=== PATIENT | female | born 1990 | race Caucasian/White ===

== ENCOUNTER 2018-03-29 08:50 | Outpatient (RCR) | payer BC, SELFPAY ==
--- NOTE | 2018-03-29 10:29 | BH.MDN ---
Multi-Disciplinary Note - Note 45-min Individual Time Started:: 11:33 Date: 03/29/18 Purpose of session/treatment goals addressed:: The purpose of this session was to build rapport as well as gather information regarding client current symptoms and stressors leading to readmission to IOP program. Another purpose was to update client background information since previous discharge and begin treatment goal planning. Eye Contact:: Good Motor Activity:: Appropriate Appearance:: Casual Speech:: Appropriate Mood:: Anxious, Depressed Affect:: Congruent - tearful throughout Thoughts:: Linear, Logical, No evidence of hallucinations/delusions noted Staff Interventions:: Therapist asked open ended and furthering questions to elicit information regarding client current symptoms and stressors leading to readmission as well as determine client use of coping skills and identified supports. Provided supportive feedback and empathic responses as client discussed current stressors and events leading to increased mental health symptoms.Assessed for risk and reviewed with client the crisis resources available. Used ND techniques to determine client current motivation to change as well as begin treatment goal planning. Client Response:: Client was receptive of meeting and responded well to session. She discussed with this therapist ongoing struggles with depression and passive thoughts of not wanting to be here. Client discussed recently going through a breakup which is what she attributes to being the cause of her increased symptoms of depression and thoughts of . Client shared the events leading to most recent hospitalization and discussed at the time of admission she had a vague plan to wreck her truck but knew she would not follow through with this plan as client had just recently purchased a new vehicle as well as expressed that she could not put her son through that. Client shared continued difficulties in adjusting to the break up as well as maintaining appropriate boundaries with her ex boyfriend which has been impacting daily functioning and continued to maintain depression. Client indicates knowing that confusing to have communication with her ex is negatively impacting her mental health and results in increased negative thinking when he does not follow through with promises to call or come see her. She additionally discussed that her depression and rumination related to the break up has resulted in poor focus at work, increased isolation and avoidance, increased feelings of worthlessness and hopelessness, loneliness, as well as changes in sleep and appetite. Client discuss no longer wanting to do anything and has barely been able to perform her parenting responsibilities. She did well to identify goals for treatment and shared wanting to learn skills for improving client self confidence and ability to feel happy when not in a relationship. Risks/Concerns:: Client recently discharged from inpatient hospitalization at [facility] due to suicidal ideation. A risk assessment was completed in session and client denies any active suicidal ideation, plan, or intent as of 03/29/18. She identifies her son as her main motivation to live and learn more efficient means of managing distress and mental health symptoms. Client is aware of and expresses willingness to utilize local crisis resources available. Progress Toward Goals/Plan:: Client first day in group since returning to the iop program and therefore limited progress able to be made. She did well to engage in individual session ; however, was a mostly passive participant in the group environment due to this being first day. Client was willing to participate in activity portion. During session, client discussed motivation to improve current symptoms and willingness to try new strategies for Managing and regulating emotions in order to prevent future crisis escalation. Client expressed hesitancy in her ability to retain from contacting her ex as she works on healing from the break up however expressed willingness to try. Current plan is to begin working with client on increasing understanding of establishing and maintaining healthy boundaries and relationships, improving use of healthy coping skills, and identifying and implementing thought challenging techniques. Time Stopped:: 12:15
--- NOTE | 2018-03-29 14:30 | BH.SGPN ---
Service Group Progress Note - Session Psychotherapy Session #2 Date Open:: 03/29/18 - group members Time Started:: 10:20 Time Stopped:: 11:15 Targeted Problem #:: 1 Type of Group:: Illness Management Goal of Group:: To increase understanding of resilience and identify the factors that contribute to building resilience. Client Response/Progress/Benefit:: Client responded well to session, quiet and withdrawn, but using good eye contact. Client appeared to connect with the quote sharing, if you don't bend you break. Client agreed with the groups' definition of resilience as bouncing back from hard times. Client shared anyone can be resilient, but it is more challenging for some than others. Client reported currently she is not adapting enough to situations which keeps client stuck in negative thinking. Client helped the group identify and process factors that contribute to building resilience. Client shared living to learn is important for building resilience as each hardship comes with new ways to adapt and grow. Client appeared to benefit from increasing her awareness of the factors that contribute to resilience and why being resilient is important for mental health. Eye Contact:: Fair Motor Activity:: Appropriate Appearance:: Casual Speech:: Appropriate Mood:: Anxious Affect:: Constricted Thoughts:: Linear, No evidence of hallucinations/delusions noted Staff Interventions:: Therapist led group in an activity that would induce a chaotic environment and used the activity as a tool in discussing the various stressors people are faced with each day. Therapist facilitated group discussion about resilience and explained the factors of building resilience. Therapist led discussion about factors that contribute to resilience. Therapist provided support by using active listening and providing feedback.
--- NOTE | 2018-03-29 15:47 | BH.SGPN ---
Service Group Progress Note - Session Psychotherapy Session #1 Date Open:: 03/29/18 Time Started:: 09:10 Time Stopped:: 10:10 Targeted Problem #:: 1 Type of Group:: Process - 10 group members Goal of Group:: The goal of today's group was to check-in with client's mood, stressors, and positives, review homework and introduce topic for the day. Client Response/Progress/Benefit:: Client appeared anxious and withdrawn AEB client staring off, not making eye contact, and fidgety with hands and legs. Client reported she is feeling frustrated because she is returning to IOP for being in the same situation with relationship issues. client shared feeling anxious that she won't get enough sleep due to working second shift and trying to be in IOP at same time. Client seemed to benefit from support from peers. First day in IOP. Eye Contact:: Poor Motor Activity:: Restless Appearance:: Casual Speech:: Appropriate Mood:: Anxious, Depressed Affect:: Flat Thoughts:: Linear, No evidence of hallucinations/delusions noted Staff Interventions:: Therapist used open-ended questions to elicit information about client's current stressors and mood state. Therapist was supportive by using active listening and reflection.
--- NOTE | 2018-03-30 10:36 | BH.SGPN_ITS ---
Service Group Progress Note - Session Psychotherapy Session #1 Date Open:: 18 - 6 group members Time Started:: 09:05 Time Stopped:: 10:20 Targeted Problem #:: 1 Type of Group:: Process Goal of Group:: The goal of today's group was to check-in with client's mood, stressors, and positives, and introduce topic for the day. Client Response/Progress/Benefit:: Client responded well to session, quiet, but participating when prompted. Client reported she does not have an emotion today , she just feels sick and sleepy. Client shared she started not feeling well last night at work, potentially due to dehydration and heat. Client reported she returned to work this week following her inpatient hospitalization and each day she has been coping better. Client stated having to schedule IOP, work, and her home life is challenging and exhausting, but I know I need to be in the program as it helped client in the past. Client appeared to benefit from receiving supportive statements from peers. Progress limited as it client's second day, to continue IOP to promote mood stability and prevent decompensation. Eye Contact:: Fair Motor Activity:: Appropriate Appearance:: Neat Speech:: Appropriate Mood:: Dysthymic Affect:: Constricted Thoughts:: Linear, Logical, No evidence of hallucinations/delusions noted Staff Interventions:: Therapist used open-ended questions to elicit information about client's current stressors and mood state. Therapist was supportive by using active listening and reflection.
--- NOTE | 2018-03-30 14:54 | BH.SGPN ---
Service Group Progress Note - Session Psychotherapy Session #2 Date Open:: 03/30/18 Time Started:: 10:24 Time Stopped:: 11:14 Targeted Problem #:: 1 Type of Group:: Illness Management - 7 participants Goal of Group:: To increase understanding of fear and explore the negative impact fear of failure can have on mental health and decision making. Client Response/Progress/Benefit:: Client responded well to session and indicated connnecting with topic of Fear of Failure. She took on a mostly passive, observatory role during discussion reviewing the definition of failure, what influences our definitions of failure, and how it impacts mental health. CLient however appeared to benefit from the discussion as evidenced by her nodding and listening attentively throughout. SHe displayed progress in ability to engage with participants during activity portion as client provided input, direction, and encouragement to assist peers in taking strides towards achieving the goal of the group. Client recommended continued IOP to further improve consistent use of health coping and boundary setting skills as well as increase client self confidence. Eye Contact:: Fair Motor Activity:: Appropriate Appearance:: Casual Speech:: Appropriate Mood:: Dysthymic Affect:: Flat Thoughts:: Linear, Logical, No evidence of hallucinations/delusions noted Staff Interventions:: Therapist facilitated discussion about fear and impact fear of failure can have. Therapist led group in an experiential activity in which clients would fail numerous times throughout, but were given the opportunity to try again. Therapist led the processing of the activity and assisted clients with connecting how fear of failure impacted their decision making during the activity. Psychotherapy Session #3 Date Open:: 03/30/18 Time Started:: 11:21 Time Stopped:: 12:17 Targeted Problem #:: 1 Type of Group:: Functional Skills Development - 7 participants Goal of Group:: To identify the impact fear of failure has had on the group members lives and identify strategies to overcome fear of failure. Client Response/Progress/Benefit:: Client again appeared to respond well to session and displayed an increase in overall participation levels. This was evidenced by client providing increased input to discussion. Client processed the gridlock activity with the group and indicated that her need for external validation during the activity particularly resonated with her need for affection and validation in her own life. Client shared connecting with an inspirational video by Cornelius Delcid discussing failure and indicated watching this may be helpful during times she is feelong upset with herself. Client displayed progress in her willingness to engage in grouo and is recommended continued IOP to further improve overall self-esteem levels and ability to challenge negative thinking. Eye Contact:: Fair Motor Activity:: Appropriate Appearance:: Casual Speech:: Appropriate Mood:: Anxious, Dysthymic Affect:: Constricted Thoughts:: No evidence of hallucinations/delusions noted Staff Interventions:: Therapist provided each group member with a worksheet to complete that asked questions about their experiences with fear of failure. Therapist led the processing of the worksheet, helping clients connect how fear of failure has impacted them. Therapist provided support by using active listening and providing feedback.
--- NOTE | 2018-03-30 22:52 | BH.SGPN_ITS ---
Service Group Progress Note - Session Psychotherapy Session #2 Date Open:: 03/30/18 Time Started:: 10:24 Time Stopped:: 11:14 Targeted Problem #:: 1 Type of Group:: Illness Management - 7 participants Goal of Group:: To increase understanding of fear and explore the negative impact fear of failure can have on mental health and decision making. Client Response/Progress/Benefit:: Client responded well to session and indicated connnecting with topic of Fear of Failure. She took on a mostly passive, observatory role during discussion reviewing the definition of failure , what influences our definitions of failure, and how it impacts mental health. CLient however appeared to benefit from the discussion as evidenced by her nodding and listening attentively throughout. SHe displayed progress in ability to engage with participants during activity portion as client provided input, direction, and encouragement to assist peers in taking strides towards achieving the goal of the group. Client recommended continued IOP to further improve consistent use of health coping and boundary setting skills as well as increase client self confidence. Eye Contact:: Fair Motor Activity:: Appropriate Appearance:: Casual Speech:: Appropriate Mood:: Dysthymic Affect:: Flat Thoughts:: Linear, Logical, No evidence of hallucinations/delusions noted Staff Interventions:: Therapist facilitated discussion about fear and impact fear of failure can have. Therapist led group in an experiential activity in which client?s would fail numerous times throughout, but were given the opportunity to try again. Therapist led the processing of the activity and assisted clients with connecting how fear of failure impacted their decision making during the activity. Psychotherapy Session #3 Date Open:: 03/30/18 Time Started:: 11:21 Time Stopped:: 12:17 Targeted Problem #:: 1 Type of Group:: Functional Skills Development - 7 participants Goal of Group:: To identify the impact fear of failure has had on the group members lives and identify strategies to overcome fear of failure. Client Response/Progress/Benefit:: Client again appeared to respond well to session and displayed an increase in overall participation levels. This was evidenced by client providing increased input to discussion. Client processed the gridlock activity with the group and indicated that her need for external validation during the activity particularly resonated with her need for affection and validation in her own life. Client shared connecting with an inspirational video by Cornelius Delcid discussing failure and indicated watching this may be helpful during times she is feelong upset with herself. Client displayed progress in her willingness to engage in grouo and is recommended continued IOP to further improve overall self-esteem levels and ability to challenge negative thinking. Eye Contact:: Fair Motor Activity:: Appropriate Appearance:: Casual Speech:: Appropriate Mood:: Anxious, Dysthymic Affect:: Constricted Thoughts:: No evidence of hallucinations/delusions noted Staff Interventions:: Therapist provided each group member with a worksheet to complete that asked questions about their experiences with fear of failure. Therapist led the processing of the worksheet, helping client?s connect how fear of failure has impacted them. Therapist provided support by using active listening and providing feedback.
--- NOTE | 2018-04-05 10:36 | BH.COMM ---
Communication Note - Communication with Client Communication Note: Client called to cancel group attendance on this s ate. She had been scheduled for an individual session as well and therapist contacted client to check-in as well as reschedule appointment. Client indicated having a migraine as she had been up late the previous night and wanted to get some sleep to help with her headache. Client shared feeling depressed and lonely but was doing alright. She denied suicidal ideation,plan,or intent. Client future oriented as she expressed plans to go to work later this day and attend scheduled appointment for Tuesday.
--- NOTE | 2018-04-07 10:37 | BH.MDN ---
Multi-Disciplinary Note - Note 45-min Individual Time Started:: 11:41 Date: 04/07/18 Purpose of session/treatment goals addressed:: The purpose of the session was to assess client current symptoms and stressors, as well as coping strategies used. Another purpose was to assist client in identifying strategies to address her son's questions regarding client's ex-boyfriend. Discuss cycle of depression and assist client in identifying potential healthy means for coping. Eye Contact:: Good Motor Activity:: Appropriate Appearance:: Casual Speech:: Appropriate Mood:: Anxious, Depressed Affect:: Congruent Thoughts:: Linear, Logical, No evidence of hallucinations/delusions noted Staff Interventions:: Therapist asked open ended and furthering questions to assess current symptoms, stressors, and means of coping. Used supportive statements and empathic responses to normalize client symptoms, frustrations, and difficulties in managing ongoing stressors. Applied [place] strategies via creation of discrepancy to address client ongoing depressive symptoms and inconsistent application of healthy skills identified. Provided psychoeducation on depression cycle and aided client in identifying potential healthier means for coping. Problem solved with client concerns regarding answering her son's questions about her ex. Client Response:: Responded well to session and was open to meeting with this therapist. She discussed having several ups and downs over the past week and has found herself struggling to manage depressive symptoms. Client shared continuing to struggle with finding ways to answer her son's questions regarding her ex-boyfriend and why he has not been around. She indicated continuing to avoid his questions but that this has begun to impact her overall mental health. She shared continuing to her refrain from contacting her ask however becoming increasingly difficult as her son continues to bring him up. Client indicates that so far maintaining healthy boundaries has been helpful in moving on from the relationship. Client shared historically having difficulties in maintaining healthy boundaries after establishing them she often becomes lonely or gives an she went on to discuss similar difficulties in establishing and maintaining boundaries work. Client shared that this has resulted in some increased the patient will stressors and tention with various coworkers. Client indicated one of which resulted in our involvement. Client open to discussing components of healthy relationships and ways in which she may begin to take steps to improve boundaries in her current relationships. Problem solved with this therapist responses she may give her son when he asked questions that will answer his questions and not also trigger client. Risks/Concerns:: No risks or concerns at this time. Client denies any active suicidal ideation, plan, or intent as of this date-04/07/2018. He is future oriented and expresses plans she is aware of the crisis resources available and willing to utilize should she need. Progress Toward Goals/Plan:: Client is showing some progress in her ability to identify the impact current behaviors have on her overall mental health and continues to struggle significantly with application of healthy coping skills. Current plan is to continue IOP treatment and maintain current treatment goals. Client indicates willingness to begin spending 5-10 minutes working on practicing healthy emotion regulation skills and coping strategies. She additionally expressed willingness to reflect upon current relationships in order to identify areas in which she may need to implement healthier boundaries. Time Stopped:: 12:30
--- NOTE | 2018-04-17 10:32 | BH.MDN_ITS ---
Multi-Disciplinary Note - Note 45-min Individual Time Started:: 11:33 Date: 03/29/18 Purpose of session/treatment goals addressed:: The purpose of this session was to build rapport as well as gather information regarding client current symptoms and stressors leading to readmission to IOP program. Another purpose was to update client background information since previous discharge and begin treatment goal planning. Eye Contact:: Good Motor Activity:: Appropriate Appearance:: Casual Speech:: Appropriate Mood:: Anxious, Depressed Affect:: Congruent - tearful throughout Thoughts:: Linear, Logical, No evidence of hallucinations/delusions noted Staff Interventions:: Therapist asked open ended and furthering questions to elicit information regarding client current symptoms and stressors leading to readmission as well as determine client use of coping skills and identified supports. Provided supportive feedback and empathic responses as client discussed current stressors and events leading to increased mental health symptoms.Assessed for risk and reviewed with client the crisis resources available. Used DE techniques to determine client current motivation to change as well as begin treatment goal planning. Client Response:: Client was receptive of meeting and responded well to session. She discussed with this therapist ongoing struggles with depression and passive thoughts of ?not wanting to be here?. Client discussed recently going through a breakup which is what she attributes to being the cause of her increased symptoms of depression and thoughts of . Client shared the event? s leading to most recent hospitalization and discussed at the time of admission she had a vague plan to wreck her truck but knew she would not follow through with this plan as client had just recently purchased a new vehicle as well as expressed that she could not put her son through that. Client shared continued difficulties in adjusting to the break up as well as maintaining appropriate boundaries with her ex boyfriend which has been impacting daily functioning and continued to maintain depression. Client indicates knowing that confusing to have communication with her ex is negatively impacting her mental health and results in increased negative thinking when he does not follow through with promises to call or come see her. She additionally discussed that her depression and rumination related to the break up has resulted in poor focus at work, increased isolation and avoidance, increased feelings of worthlessness and hopelessness, loneliness, as well as changes in sleep and appetite. Client discuss no longer wanting to do anything and has barely been able to perform her parenting responsibilities. She did well to identify goals for treatment and shared wanting to learn skills for improving client self confidence and ability to feel happy when not in a relationship. Risks/Concerns:: Client recently discharged from inpatient hospitalization at [facility] due to suicidal ideation. A risk assessment was completed in session and client denies any active suicidal ideation, plan, or intent as of . She identifies her son as her main motivation to live and learn more efficient means of managing distress and mental health symptoms. Client is aware of and expresses willingness to utilize local crisis resources available. Progress Toward Goals/Plan:: Client first day in group since returning to the iop program and therefore limited progress able to be made. She did well to engage in individual session ; however, was a mostly passive participant in the group environment due to this being first day. Client was willing to participate in activity portion. During session, client discussed motivation to improve current symptoms and willingness to try new strategies for Managing and regulating emotions in order to prevent future crisis escalation. Client expressed hesitancy in her ability to retain from contacting her ex as she works on healing from the break up however expressed willingness to try. Current plan is to begin working with client on increasing understanding of establishing and maintaining healthy boundaries and relationships, improving use of healthy coping skills, and identifying and implementing thought challenging techniques. Time Stopped:: 12:15
--- NOTE | 2018-04-17 10:37 | BH.COMM_ITS ---
Communication Note - Communication with Client Communication Note: Client called to cancel group attendance on this s ate. She had been scheduled for an individual session as well and therapist contacted client to check-in as well as reschedule appointment. Client indicated having a migraine as she had been up late the previous night and wanted to get some sleep to help with her headache. Client shared feeling depressed and lonely but was ?doing alright?. She denied suicidal ideation,plan,or intent. Client future oriented as she expressed plans to go to work later this day and attend scheduled appointment for Tuesday.
--- NOTE | 2018-04-24 15:48 | BH.MTP_ITS ---
Master Treatment Plan - Patient Information Program Physician:: Chika Patricio Primary Therapist:: MAIRA Liu - Psychiatric Diagnoses Psychiatric Diagnoses:: Major Depressive Disorder Diagnosis Code(s):: F33.2 - Estimated LOS Estimated LOS (in weeks):: 6 Problem/Goal #1 - Problem/Goal #1 Stated Goal:: Client will decrease depressive symptoms, avoidance, isolation, and suicidal ideationdue to Major Depressive Disorder through Intensive Outpatient Program. Description of Barriers: Client struggles with a hx of codependent relationships and most recently is experiencing difficulties in managing depressive thinking, ruminating thoughts, and isolative behaviors related to a recent break-up. CLient reports difficulties in maintaining healthy boundaries which has cause relationship tension and increased client ability to move on from the relationship. CLient limited support system, distorted thinking, toxic work environment, negative self-talk, and decreased motivation are additional barriers. Functional Impact: Client has recently been discharged from inpatient hospitalization due to suicidal thoughts following the break-up and had to take time off work as she was avoiding her ex and struggling to manage ongoing depressive thoughts. Client's social, financial, occupational, and familial relationships continue to be negatively impacted by her depressive and anxious symptoms.CLient indicates increase ruminating and intrusive thoughts have impacted her relationships and created additional tension with supports. Goal Relevant Strengths/Supports: Client is resilient and expresses motivation to improve management of mental health sx. She is familiar with treatment and expresses willingness to try new treatment strategies. CLient is intelligent and has some insight to triggers and helpful coping skills. Client's son seems to be a motivator for client to continue to maintain safety and improve mental health sx. - Objectives Objective #1 Stated Objective: Client will identify and replace 2-3 negative thinking patterns that mediate feelings of hopelessness and helplessness and cause ongoing feelings of guilt and loneliness. Interventions: Through groups and individual therapy, pt. will be provided with education on cognitive distortions, mistaken beliefs, and identifying and combating negative self-talk. Therapist will help pt. explore connection between thoughts, feelings, and actions. Discharge Criteria: Pt. will be able to identify 2-3 negative thinking patterns and be able to effectively stop, challenge, or cope with those negative thoughts. Target Date: 05/10/18 Review Date: 04/26/18 Objective #2 Stated Objective: Client will increase her ability to identify healthy relationships and implement healthy boundaries as well as establish a relationship crisis manaegement plan for maintaining mental health and implementing healthy boundaries following a potential future relationship break- up. Interventions: Therapist will provide psychoeducation regarding dynamics of healthy vs. unhealthy relationships. Therapist will review healthy boundaries and aid client in identifying areas in her life in which she may benefit from establishing healthier boundaries. Therapist will discuss strategies for client to begin implementing healthy boundary setting in current and future relationships. Therapist will work with client to complete a relationship crisis management plan including mental health warning signs and triggers, healthy coping skills, supports, and reminders for client to utilize in the event of a future unsuccessful relationship. Discharge Criteria: Client will have completed tx goal when she is able to successfully identify components of healthy relationships and healthy boundaries as well as implement 1-2 boundary setting strategies in her own life. CLient will additionally complete a Relationship crisis management plan. Target Date: 05/10/18 Review Date: 04/26/18 Problem/Goal #2 - Problem/Goal #2 Stated Goal:: Stabilize anxiety level while increasing ability to function and decreasing ruminative thoughts and avoidance behaviors Description of Barriers: Client struggles with a hx of codependent relationships and most recently is experiencing difficulties in managing depressive thinking, ruminating thoughts, and isolative behaviors related to a recent break-up. CLient reports difficulties in maintaining healthy boundaries which has cause relationship tension and increased client ability to move on from the relationship. CLient limited support system, distorted thinking, toxic work environment, negative self-talk, and decreased motivation are additional barriers. Functional Impact: Client has recently been discharged from inpatient hospitalization due to suicidal thoughts following the break-up and had to take time off work as she was avoiding her ex and struggling to manage ongoing depressive thoughts. Client's social, financial, occupational, and familial relationships continue to be negatively impacted by her depressive and anxious symptoms.CLient indicates increase ruminating and intrusive thoughts have impacted her relationships and created additional tension with supports. Goal Relevant Strengths/Supports: Client is resilient and expresses motivation to improve management of mental health sx. She is familiar with treatment and expresses willingness to try new treatment strategies. CLient is intelligent and has some insight to triggers and helpful coping skills. Client's son seems to be a motivator for client to continue to maintain safety and improve mental health sx. - Objectives Objective #1 Stated Objective: Client will identify and begin to utilize 2-3 thought changing /reframing strategies to use when feeling Interventions: Therapist will assist client with being able to identify triggers to increased symptoms, and then identify ways to manage these feelings and thoughts. Education on mistaken beliefs, cognitive distortions, reframing skills, and use of affirmations. Discharge Criteria: Client will have met this goal when can safely use 2-3 coping and reframing strategies when feeling overwhelmed and be able to utilize these skills outside of program. Target Date: 05/10/18 Review Date: 04/26/18
== END 2018-03-30 23:59 ==
LOC: BHIOP 08:50
PROVIDERS: Family Provider Student in an Organized Health Care Education/Training Program; PCP Student in an Organized Health Care Education/Training Program; Visit Provider Psychiatry & Neurology Psychiatry
DX: F33.2 Major depressive disorder, recurrent severe without psychotic features (principal)
CPT/HCPCS: H0035; 90853

== ENCOUNTER 2018-03-31 09:00 | Outpatient (RCR) | payer BC, SELFPAY ==
--- NOTE | 2018-03-31 10:42 | PCM.HP.BLA ---
History and Physical Identifying information Patient is a 28-year-old female who presents to the [facility] status post inpatient psychiatric hospitalization for depression with suicidal ideation after breakup with boyfriend. Patient reports I got myself in the same situation all over again. She had a similar situation requiring hospitalization and [facility] treatment last year. History is been obtained per interview with patient, discussion with staff, review of chart. Case discussed with treatment team. Records reviewed including the history and physical by Dr. Marquez March 19, 2018 from [facility]. History and physical reviewed from [facility] from March 11, 2017. History of present illness This 28-year-old single female who presents to the [facility] for evaluation of depression and anxiety. She had similar symptoms one year ago in February 2017 associated with breakup with boyfriend. Her current symptoms started mid-February after a 2 month relationship with boyfriend went bad. She reports the boyfriend moved in with her 1 month ago. They had a fight on March 17 at which time he moved out. She reports increased depression with increased suicidal thinking and sought treatment through [facility] where she was admitted from 03/18 through 03/22. Started on Zoloft 25 mg twice daily during her inpatient stay but discontinued it 2 days ago due to nausea and vomiting. She continues to have depression including anhedonia decreased energy and difficulty concentrating. Her appetite is been overall decreased. She is sleeping from 1 AM to 8 AM but notes that it is interrupted. She continues to have passive thoughts of nonexistent. She denies specific suicide plan or intent. Feels able to maintain safety. Acknowledges that she lives for her son. Denies access to firearms. No homicidal ideation. No hallucinations or symptoms consistent with psychosis. No symptoms consistent with yfn. Reports moderate ruminative anxiety. Had panic attacks at [facility] but none since. No obsessions or compulsions. No history of eating disorder. Past psychiatric history She was first treated in the eighth grade for cutting behavior which lasted 2 months after starting Adderall XR. Denies cutting since. She reports a diagnosis of ADHD as a teenager and took Adderall from grade school through the 12th grade. She reports the Adderall was restarted at [facility]. She feels that it has been somewhat effective in helping her focus at work. She had 2 inpatient psychiatric hospitalizations at [facility]. The first was February 25 - March 01, 2017 for depression with suicidal ideation. The second was from March 18 - March 22, 2018 as noted above. She sees Dr. Lira at the counseling center. She has had previous medication trials with SSRIs which have resulted in nausea including Prozac, Lexapro, and Zoloft. She was previously on Effexor which she felt was effective but also caused nausea. 9 Substance use history Denies smoking, ingestion of alcohol, use of illicit drugs. Consumes 40 ounces of caffeinated soda daily. Past medical history Exercise-induced asthma PVCs Denies seizure or head injury Review of systems Complaint of nausea associated with Zoloft. No fevers chills chest pain or dyspnea. All other systems reviewed and negative except as above. Allergies Hotdogs, environmental allergies Current medications Discontinued Zoloft 25 mg twice daily 2 days ago due to nausea vomiting. Trazodone 50 mg p.o. nightly as needed insomnia-uses rarely Adderall 20 mg daily Ativan 0.5 mg p.o. daily as needed-uses rarely Vistaril 25 mg p.o. 4 times daily prescribed at [facility] but not taking Family medical psychiatric history Mother has history of hoarding Father had undiagnosed depression as a child Brother had PTSD from service Developmental social history Patient was born and raised in [place] which she has 1 older brother. She grew up with her parents and her brother. She denies abuse. She attended 1 year of college general classes which she stated was not for me. She has worked at [employer] for 4 years. 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 She lives in [place] with her son age 7 (Girma). Legal history-none Mental status exam Vital signs reviewed per nursing database and discussed with nursing. Patient is alert and oriented in no acute distress. Ambulatory with normal gait and station. Facial piercing. Appears stated age. Casually dressed. Appropriate grooming and hygiene. Good eye contact. Cooperative with interview. No psychomotor agitation or retardation. Mood is depressed. Affect congruent. Speech is clear and of regular rate and volume. Language fluent. Thought process organized. Associations logical. Thought content significant for ruminative anxiety and themes of depression. Passive thoughts of . No suicide plan or intent. Feels able to maintain safety. No homicidal ideation related to her detected. No evidence of psychosis related to her detected. Immediate recent and remote memory grossly intact. Attention and concentration are fair. Estimated intelligence fund of knowledge average. Judgment and insight are fair. Labs and testing March 20, 2018 labs reviewed. CBC and CMP within normal limits. Cholesterol 124. TSH 1.75. Tox screen negative. Diagnosis Major depressive disorder recurrent severe F 33.2 Anxiety unspecified ADHD by history Plan Admit to IOP as the structured setting is necessary to prevent decompensation. Risks benefits alternatives of medications discussed with patient. Patient acknowledges understanding. Start Wellbutrin SR 100 mg p.o. daily. Previous SSRIs have resulted in GI symptoms. Patient denies history of seizure. Encouraged caffeine reduction. Encouraged to limit use of benzodiazepines. May use trazodone 50 mg p.o. nightly as needed for insomnia. Encouraged sleep hygiene. 20 minutes of Insight oriented psychotherapy provided. Follow-up with Dr. Oakes. Further lab work will be obtained as needed. Patient acknowledges understanding and is in agreement with plan. She feels able to maintain safety. Agrees to seek help or emergency care if feeling unsafe to self or others.
--- NOTE | 2018-03-31 11:04 | HP.PCM_ITS ---
History and Physical Identifying information Patient is a 28-year-old female who presents to the [facility] status post inpatient psychiatric hospitalization for depression with suicidal ideation after breakup with boyfriend. Patient reports I got myself in the same situation all over again. She had a similar situation requiring hospitalization and [facility] treatment last year. History is been obtained per interview with patient, discussion with staff, review of chart. Case discussed with treatment team. Records reviewed including the history and physical by Dr. Marquez March 19, 2018 from [facility]. History and physical reviewed from [facility] from March 11, 2017. History of present illness This 28-year-old single female who presents to the [facility] for evaluation of depression and anxiety. She had similar symptoms one year ago in February 2017 associated with breakup with boyfriend. Her current symptoms started mid-February after a 2 month relationship with boyfriend went bad. She reports the boyfriend moved in with her 1 month ago. They had a fight on March 17 at which time he moved out. She reports increased depression with increased suicidal thinking and sought treatment through [facility] where she was admitted from 03/18 through 03/22. Started on Zoloft 25 mg twice daily during her inpatient stay but discontinued it 2 days ago due to nausea and vomiting. She continues to have depression including anhedonia decreased energy and difficulty concentrating. Her appetite is been overall decreased. She is sleeping from 1 AM to 8 AM but notes that it is interrupted. She continues to have passive thoughts of nonexistent. She denies specific suicide plan or intent. Feels able to maintain safety. Acknowledges that she lives for her son. Denies access to firearms. No homicidal ideation. No hallucinations or symptoms consistent with psychosis. No symptoms consistent with yfn. Reports moderate ruminative anxiety. Had panic attacks at [facility] but none since. No obsessions or compulsions. No history of eating disorder. Past psychiatric history She was first treated in the eighth grade for cutting behavior which lasted 2 months after starting Adderall XR. Denies cutting since. She reports a diagnosis of ADHD as a teenager and took Adderall from grade school through the 12th grade. She reports the Adderall was restarted at [facility]. She feels that it has been somewhat effective in helping her focus at work. She had 2 inpatient psychiatric hospitalizations at [facility]. The first was February 25 - March 01, 2017 for depression with suicidal ideation. The second was from March 18 - March 22, 2018 as noted above. She sees Dr. Lira at the counseling center. She has had previous medication trials with SSRIs which have resulted in nausea including Prozac, Lexapro, and Zoloft. She was previously on Effexor which she felt was effective but also caused nausea. 9 Substance use history Denies smoking, ingestion of alcohol, use of illicit drugs. Consumes 40 ounces of caffeinated soda daily. Past medical history Exercise-induced asthma PVCs Denies seizure or head injury Review of systems Complaint of nausea associated with Zoloft. No fevers chills chest pain or dyspnea. All other systems reviewed and negative except as above. Allergies Hotdogs, environmental allergies Current medications Discontinued Zoloft 25 mg twice daily 2 days ago due to nausea vomiting. Trazodone 50 mg p.o. nightly as needed insomnia-uses rarely Adderall 20 mg daily Ativan 0.5 mg p.o. daily as needed-uses rarely Vistaril 25 mg p.o. 4 times daily prescribed at [facility] but not taking Family medical psychiatric history Mother has history of hoarding Father had undiagnosed depression as a child Brother had PTSD from service Developmental social history Patient was born and raised in [place] which she has 1 older brother. She grew up with her parents and her brother. She denies abuse. She attended 1 year of college general classes which she stated was not for me. She has worked at [employer] for 4 years. 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 She lives in [place] with her son age 7 (Girma). Legal history-none Mental status exam Vital signs reviewed per nursing database and discussed with nursing. Patient is alert and oriented in no acute distress. Ambulatory with normal gait and station. Facial piercing. Appears stated age. Casually dressed. Appropriate grooming and hygiene. Good eye contact. Cooperative with interview. No psychomotor agitation or retardation. Mood is depressed. Affect congruent. Speech is clear and of regular rate and volume. Language fluent. Thought process organized. Associations logical. Thought content significant for ruminative anxiety and themes of depression. Passive thoughts of . No suicide plan or intent. Feels able to maintain safety. No homicidal ideation related to her detected. No evidence of psychosis related to her detected. Immediate recent and remote memory grossly intact. Attention and concentration are fair. Estimated intelligence fund of knowledge average. Judgment and insight are fair. Labs and testing March 20, 2018 labs reviewed. CBC and CMP within normal limits. Cholesterol 124. TSH 1.75. Tox screen negative. Diagnosis Major depressive disorder recurrent severe F 33.2 Anxiety unspecified ADHD by history Plan Admit to IOP as the structured setting is necessary to prevent decompensation. Risks benefits alternatives of medications discussed with patient. Patient acknowledges understanding. Start Wellbutrin SR 100 mg p.o. daily. Previous SSRIs have resulted in GI symptoms. Patient denies history of seizure. Encouraged caffeine reduction. Encouraged to limit use of benzodiazepines. May use trazodone 50 mg p.o. nightly as needed for insomnia. Encouraged sleep hygiene. 20 minutes of Insight oriented psychotherapy provided. Follow-up with Dr. Oakes. Further lab work will be obtained as needed. Patient acknowledges understanding and is in agreement with plan. She feels able to maintain safety. Agrees to seek help or emergency care if feeling unsafe to self or others.
--- NOTE | 2018-03-31 11:04 | BH.DR.ITP ---
Initial Treatment Plan - Patient Information Visit Information: ADMISSION DATE: EXPECTED LOS: 4-6 weeks Diagnoses:: Major depressive disorder recurrent severe F 33.2 - Problems/Symptoms Problem #1:: Depression Symptom:: Sad mood, anhedonia, decreased energy, suicidal ideation, biologic disruption of sleep and appetite Problem #2:: Anxiety Symptom:: Rumination, panic
--- NOTE | 2018-03-31 13:48 | BH.SGPN ---
Service Group Progress Note - Session Psychotherapy Session #3 Date Open:: 18 - 7 group members Time Started:: 11:10 Time Stopped:: 12:00 Targeted Problem #:: 1 Type of Group:: Functional Skills Development Goal of Group:: To identify what stressors clients have control over and what stressors have no control over. Another goal was to increase repertoire of healthy strategies to help manage stress. Client Response/Progress/Benefit:: Client responded well to session, quiet, but participating when prompted. Client participated in an activity aimed to help client's practice stress management skills. Client reported the activity helped the group realize the importance of taking one stressor on at a time and using supports. Client reported her current stressors are both in and out of her control. Client identified strategies to reduce stress such as focusing on what is in client's control and prioritizing her stressors. Client appeared to benefit from learning various strategies to reduce stress. Progress limited as client recently started IOP. Client to continue IOP to promote mood stability. Eye Contact:: Fair Motor Activity:: Slowed Appearance:: Casual Speech:: Appropriate Mood:: Depressed Affect:: Flat Thoughts:: Linear, Logical, No evidence of hallucinations/delusions noted Staff Interventions:: Therapist facilitated discussion about control versus no control and helped group members connect the concept to stressors. Therapist led discussion about importance of putting forth more energy on those stressors they can control. Therapist led group activity that provided participants opportunity to utilize stress management strategies in the moment. Therapist facilitated brainstorming of strategies to help manage stress level. Therapist provided support by using active listening and providing feedback.
--- NOTE | 2018-03-31 15:43 | BH.SGPN ---
Service Group Progress Note - Session Psychotherapy Session #1 Date Open:: 03/31/18 Time Started:: 09:08 Time Stopped:: 09:59 Targeted Problem #:: 1 Type of Group:: Process Goal of Group:: The goal of today's group was to check-in with client's mood, stressors, and positives, review homework and introduce topic for the day. Client Response/Progress/Benefit:: Client reported she is not physically feeling well for several days now. Reported her depressions are making her vomit is hoping that she will have medication change soon. Reported at work she is feeling smothered by all the coworkers asking her if she is okay and what is wrong. Client was superficial in her check-in. Client to continue IOP to decrease depressive symptoms, anxiety symptoms and stabilize mood. Eye Contact:: Fair Motor Activity:: Appropriate Appearance:: Casual Speech:: Appropriate Mood:: Anxious, Depressed Affect:: Flat Thoughts:: Linear, No evidence of hallucinations/delusions noted Staff Interventions:: Therapist used open-ended questions to elicit information about client's current stressors and mood state. Therapist was supportive by using active listening and reflection.
--- NOTE | 2018-04-03 15:30 | BH.SGPN ---
Service Group Progress Note - Session Psychotherapy Session #1 Date Open:: 04/03/18 Time Started:: 09:07 Time Stopped:: 10:20 Targeted Problem #:: 1 Type of Group:: Process - 9 participants Goal of Group:: The goal of today's group was to check-in with clients and review homework from previous group session. Client Response/Progress/Benefit:: Client responded well to session and appeared to benefit from the support of the group environment as client indicates recently struggling with isolation. Client shared that she has continued to struggle with closure and moving on from her most recent break up. She attributed this to the mix of emotion experienced over the weekend and increased desire to withdraw. Client indicated she was able to get out of the house and spend some time with her son picking fresh strawberries but was confronted by his questions regarding where her ex was. Client shared struggling to know how to explain what happened to her son and ended up feeling more depressed. She displayed some progress in her ability to reflect upon how ongoing communication with the ex makes it difficult to move forward and may confuse her son, but continues to struggle with setting and following through with healthy boundaries. Client recommended continued IOP to prevent decompensation and continue to improve healthy boundaries and emotion regulation. Eye Contact:: Fair - tearful while sharing with group Motor Activity:: Appropriate Appearance:: Casual Speech:: Appropriate Mood:: Depressed Affect:: Labile Thoughts:: Linear, Logical, No evidence of hallucinations/delusions noted Staff Interventions:: Therapist facilitated the group session by asking open ended questions that encouraged group members to discuss their weekend and current mood state. Assisted group members in the review of their homework from previous group session.
--- NOTE | 2018-04-07 17:22 | BH.SGPN ---
Service Group Progress Note - Session Psychotherapy Session #2 Date Open:: 04/07/18 - group members Time Started:: 10:30 Time Stopped:: 11:10 Targeted Problem #:: 1 Type of Group:: Illness Management Goal of Group:: The goal of this session was to increase self-awareness of what is holding them back from moving towards mental wellness and discuss importance of taking action in their treatment. Behaviors/Verbalizations/Mental Status:: left briefly during group to meet with another provider. Client Response/Progress/Benefit:: Client responded well to session, quiet, but participating when prompted. Client appeared to connect with the quote sharing if you want change you have to do something about it. Client identified things in her life that are holding her back from moving towards mental wellness such as procrastination, depression, isolation, falling into old patterns, and relationships. Client stated she wants to take back control over these stressors and symptoms because they have been negatively impacting clients mental wellness for years, but client reports she knows it will take a lot of effort. Client appeared to benefit from identifying stressors and symptoms holding her back and from participating in a symbolic activity. Progress noted as client came back to IOP services after recognizing warning signs. Client to continue IOP to prevent decompensation and increase emotional regulation. Eye Contact:: Fair Motor Activity:: Appropriate Appearance:: Casual Speech:: Appropriate Mood:: Irritable, Depressed Affect:: Constricted Thoughts:: Linear, Logical, No evidence of hallucinations/delusions noted Staff Interventions:: Therapist facilitated discussion about what it means to take action in achieving mental health wellness. Therapist led activity in which clients were asked to identify the symptoms and things that they would like to take back control over. Therapist provided support by using active listening.
--- NOTE | 2018-04-10 14:57 | BH.SGPN ---
Service Group Progress Note - Session Psychotherapy Session #1 Date Open:: 04/10/18 - 8 group members Time Started:: 09:04 Time Stopped:: 10:02 Targeted Problem #:: 1 Type of Group:: Process Goal of Group:: The goal of today's group was to check-in with client's mood, stressors, and positives, and introduce topic for the day. Client Response/Progress/Benefit:: Client responded well to session, quiet, but participating when prompted. Client reports feeling exhausted and irritated today. Client reported she kept busy over the weekend doing cleaning, making cupcakes with her son, and getting rest. Client stated she became irritated with her son last evening stating, everything was annoying me. With therapist elicitation, client reflected her irritation may have been triggered by client doing too much at once. Client reported due to her depression she has not been as active, but wanted to clean this weekend so client did not crash. Client was receptive to using self-care to prevent burnout. Client appeared to benefit from increasing awareness of triggers. Client to continue IOP to promote mood stability and reduce depression. Eye Contact:: Good Motor Activity:: Appropriate Appearance:: Casual Speech:: Appropriate Mood:: Irritable Affect:: Other - incongruent as evidenced by smiling and joking, but reporting anxiety and agitation. Thoughts:: Linear, No evidence of hallucinations/delusions noted Staff Interventions:: Therapist used open-ended questions to elicit information about client's current stressors and mood state. Therapist was supportive by using active listening and reflection.
--- NOTE | 2018-04-10 15:43 | BH.SGPN ---
Service Group Progress Note - Session Psychotherapy Session #2 Date Open:: 04/10/18 Time Started:: 10:15 Time Stopped:: 11:10 Targeted Problem #:: 1 Type of Group:: Illness Management Goal of Group:: To increase understanding and awareness of emotions connected to change and the impact those emotions can have on change. Client Response/Progress/Benefit:: Client passive participant as evidenced by client not contributing to discussion but did appear to be listening to others' comments. Client appeared to connect with comments made by peers about challenges of making change. Client also appeared to connect with the change process as evidenced by her nodding her head throughout the discussion about the time and effort it takes in order for change to occur. Client seemed benefit from learning about the change process as well as connecting, and emotions experienced during change and how those emotions could impact the change process. Client progress could be hindered by her continued passive participation throughout group sessions. Client to continue IOP level of care to decreased depressive and anxious symptoms and prevent decompensation. Eye Contact:: Fair Motor Activity:: Appropriate Appearance:: Casual Speech:: Appropriate Mood:: Anxious, Depressed Affect:: Flat Thoughts:: Linear, No evidence of hallucinations/delusions noted Staff Interventions:: Therapist facilitated group discussion about change. Therapist led the group in an activity in which the activity was utilized as a tool to increase clients awareness of emotions connected with change. Therapist led the processing of how each emotion was connected with change. Therapist provided psychoeducation process of change, helped group members apply it to their life. Therapist was supportive by providing feedback and using reflective listening. Psychotherapy Session #3 Date Open:: 04/10/18 Time Started:: 11:20 Time Stopped:: 12:15 Targeted Problem #:: 1 Type of Group:: Functional Skills Development Goal of Group:: To identify the challenges associated with making change and identify positive outcomes that have resulted from changes made in past. Client Response/Progress/Benefit:: Client passive participant only contributing to discussion if elicited by therapist, worked cooperatively with peers during activity. Client attentive to others comments when processing challenge activity appearing to relate to others about the importance of accepting support when change becomes challenging. Client identify one small change she is going to make is to spend 15 minutes daily relaxing. Seemed to benefit from identifying one small goal she is going to work on. Eye Contact:: Fair Motor Activity:: Appropriate Appearance:: Casual Speech:: Appropriate Mood:: Anxious, Depressed Affect:: Flat Thoughts:: Linear, No evidence of hallucinations/delusions noted Staff Interventions:: Therapist led group in an activity to help group members recognize the challenges associated with change. Therapist utilized activity as a tool to identify ways to manage changes and adapt to the challenges that ensue. Therapist facilitated group discussion about positive outcomes from change.
--- NOTE | 2018-04-10 15:48 | BH.SGPN_ITS ---
Service Group Progress Note - Session Psychotherapy Session #2 Date Open:: 04/03/18 Time Started:: 10:25 Time Stopped:: 11:15 Targeted Problem #:: 1 Type of Group:: Illness Management Goal of Group:: To increase understanding of pitfalls and impact can have on mental health. Client Response/Progress/Benefit:: Client passive participant remained quiet throughout group appeared depressed and withdrawn. Client did participate in group challenge activity, but did not provide input or share her ideas with group. Client did take notes throughout group about the barriers of making changes, examples of personal pitfalls, and what strategies can help avoid falling into personal pitfalls. Client seemed to benefit from learning about personal pitfalls. Client progress could be impacted by client?s detachment during group session and limited participation. Client to continue IOP level of care to decrease depressive symptoms, reduce anxiety and prevent decompensation. Eye Contact:: Poor Motor Activity:: Appropriate Appearance:: Casual Speech:: Soft Mood:: Depressed Affect:: Flat Thoughts:: Linear, No evidence of hallucinations/delusions noted Staff Interventions:: Therapist facilitated discussion about pitfalls and assisted group in identifying common pitfalls that can set you back. Therapist led group in an activity to help group understand impact pitfalls can have on oneself and identify strategies that could help you get back on the right path. Therapist provided support by using active listening and providing feedback. Psychotherapy Session #3 Date Open:: 04/03/18 Time Started:: 11:25 Time Stopped:: 12:15 Targeted Problem #:: 1 Type of Group:: Functional Skills Development Goal of Group:: To identify personal pitfalls and what keeps them stuck from moving forward. Client Response/Progress/Benefit:: Client passive participant remained quiet throughout group appeared depressed and withdrawn. Client did participate in group challenge activity, but did not provide input or share her ideas with group. Client did take notes throughout group about the barriers of making changes, examples of personal pitfalls, and what strategies can help avoid falling into personal pitfalls. Client seemed to benefit from learning about personal pitfalls. Client progress could be impacted by client?s detachment during group session and limited participation. Client to continue IOP level of care to decrease depressive symptoms, reduce anxiety and prevent decompensation. Eye Contact:: Poor Motor Activity:: Appropriate Appearance:: Casual Speech:: Soft Mood:: Depressed Affect:: Flat Thoughts:: Linear, No evidence of hallucinations/delusions noted Staff Interventions:: Therapist facilitated activity in which group members were given the task to identify personal pitfalls and what keeps them stuck from moving past the pitfall. Therapist provided group members with the homework assignment of identifying strategies that can help them overcome pitfalls.
--- NOTE | 2018-04-11 17:24 | BH.SGPN_ITS ---
Service Group Progress Note - Session Psychotherapy Session #2 Date Open:: 04/07/18 - group members Time Started:: 10:30 Time Stopped:: 11:10 Targeted Problem #:: 1 Type of Group:: Illness Management Goal of Group:: The goal of this session was to increase self-awareness of what is holding them back from moving towards mental wellness and discuss importance of taking action in their treatment. Behaviors/Verbalizations/Mental Status:: left briefly during group to meet with another provider. Client Response/Progress/Benefit:: Client responded well to session, quiet, but participating when prompted. Client appeared to connect with the quote sharing ? if you want change you have to do something about it.? Client identified things in her life that are holding her back from moving towards mental wellness such as procrastination, depression, isolation, falling into old patterns, and relationships. Client stated she wants to take back control over these stressors and symptoms because they have been negatively impacting client?s mental wellness for years, but client reports she knows it will take a lot of effort. Client appeared to benefit from identifying stressors and symptoms holding her back and from participating in a symbolic activity. Progress noted as client came back to IOP services after recognizing warning signs. Client to continue IOP to prevent decompensation and increase emotional regulation. Eye Contact:: Fair Motor Activity:: Appropriate Appearance:: Casual Speech:: Appropriate Mood:: Irritable, Depressed Affect:: Constricted Thoughts:: Linear, Logical, No evidence of hallucinations/delusions noted Staff Interventions:: Therapist facilitated discussion about what it means to take action in achieving mental health wellness. Therapist led activity in which clients were asked to identify the symptoms and things that they would like to take back control over. Therapist provided support by using active listening.
--- NOTE | 2018-04-13 08:29 | BH.MDN ---
Multi-Disciplinary Note - Note 45-min Individual Time Started:: 11:54 Date: 04/13/18 Purpose of session/treatment goals addressed:: Purpose of session was to discuss CLient treatment goal progress and engagement in the IOP program. Another purpose was to address Client use of avoidance as primary coping mechanism and identify small goals for implementing healthier means of coping. Eye Contact:: Good - tearful upon discussing difficulties managing sx of depression. Motor Activity:: Appropriate Appearance:: Casual Speech:: Appropriate Mood:: Depressed Affect:: Congruent Thoughts:: Linear, Logical, No evidence of hallucinations/delusions noted Staff Interventions:: Therapist used open ended questions to elicit client's thoughts regarding current sx and stressors, treatment progress, engagement in group, and application of skills learned. Used reflective listening and gently challenged Client regarding ongoing depressive sx and inconsistent application of coping skills. Addressed with client ongoing use of avoidance and discussed the concept of maintenance behaviors as related to the depression cycle. Aided client in identifying potential healthy alternative means of coping as well as establish small goals for following week to improve healthy coping and treatment engagement. Client Response:: Client reported feeling all over the place as she has had a rough past few days. She shared ongoing tension in the workplace and feeling as though her co-workers are talking about her when Client is not paying attention. CLient shared I'm just keeping to myself and not worrying about helping anybody. Client discussed feeling as though most of the people she works with are toxic. She went on to discuss finding out over the weekend that she has not had homeowner's insurance for the past month as the bill had been in her ex boyfriend's name whose mail is being forwarded. Client explained that this brought back feelings of loneliness. She shared not wanting to be back in the relationship but not wanting to be alone either. Client went on to share experiencing high levels of anxiety throughout the weekend and beginning of this week due to such. Client shared this was heightened by the neighbor children throwing rocks in the backyard as client did not want them to break a window. When asked how she had been coping with these emotions Client indicated that she has not been doing much more than the bare minimum to get by. CLient did however attempt to spend some time with her son baking cupcakes but indicated finding this to be unenjoyable and felt forced. Client shared spending selfcare time watching [employer] but feels she cannot do much in the way of coping as she is tight on money. She appeared to connect with discussion reviewing consequences of avoiding trying things because she does not have the motivation in the moment and appeared to understand depression cycle when discussing maintenance behaviors. Client able to work with therapist on coming up with cost free coping skills outside of home repairs which client has previously expressed as her main means of distracting herself. She expressed willingness to try completing a daily gratitude journal. Risks/Concerns:: No risks or concerns at this time. Client denies suicidal ideation, plan or intention to date, 04/13/18. Progress Toward Goals/Plan:: Progress noted with client increased self-awareness of use of unhealthy maintenance behaviors on ongoing depression symptoms. CLient additionally increasingly receptive of feedback and displaying higher levels of motivation to use skills learned. CLient continues to struggle with creating and maintaining healthy boundaries and often appears disengaged in treatment. Plan is to continue IOP to prevent decompensation. Time Stopped:: 12:45
--- NOTE | 2018-04-13 10:59 | BH.SGPN ---
Service Group Progress Note - Session Psychotherapy Session #1 Date Open:: 04/13/18 Time Started:: 09:10 Time Stopped:: 10:00 Type of Group:: Process - 5 group members Goal of Group:: The goal of today's group was to check-in with client's mood, stressors, and positives, and review homework. Client Response/Progress/Benefit:: Pt was attentive throughout the group however provided little feedback. Emotion for today is herbert. Shared with the group several stressors this past week which are continuing to cause worsening depresssion. Decreased sleep. She talked a great deal about her stressors at home, work, and with finances. Group was able to point out that while stressful she is actually managing or addressing the stressors rather than avoiding them. Limited progress. Continues to struggle with mood management on a daily basis which is impacting overall functioning and quality of life. Not using coping skills or thought-reframing strategies. Will continue in IOP to maintain safety, stablize mood, and prevent further decompensation. Eye Contact:: Poor Motor Activity:: Restless Appearance:: Disheveled Speech:: Appropriate Mood:: Anxious, Irritable, Depressed Affect:: Congruent Thoughts:: Linear, Logical, No evidence of hallucinations/delusions noted Staff Interventions:: Therapist used open-ended questions to elicit information about client's current stressors and mood state. Therapist was supportive by using active listening and reflection.
--- NOTE | 2018-04-13 11:09 | BH.SGPN_ITS ---
Service Group Progress Note - Session Psychotherapy Session #1 Date Open:: 04/13/18 Time Started:: 09:10 Time Stopped:: 10:00 Type of Group:: Process - 5 group members Goal of Group:: The goal of today's group was to check-in with client's mood, stressors, and positives, and review homework. Client Response/Progress/Benefit:: Pt was attentive throughout the group however provided little feedback. Emotion for today is herbert. Shared with the group several stressors this past week which are continuing to cause worsening depresssion. Decreased sleep. She talked a great deal about her stressors at home, work, and with finances. Group was able to point out that while stressful she is actually managing or addressing the stressors rather than avoiding them. Limited progress. Continues to struggle with mood management on a daily basis which is impacting overall functioning and quality of life. Not using coping skills or thought-reframing strategies. Will continue in IOP to maintain safety , stablize mood, and prevent further decompensation. Eye Contact:: Poor Motor Activity:: Restless Appearance:: Disheveled Speech:: Appropriate Mood:: Anxious, Irritable, Depressed Affect:: Congruent Thoughts:: Linear, Logical, No evidence of hallucinations/delusions noted Staff Interventions:: Therapist used open-ended questions to elicit information about client's current stressors and mood state. Therapist was supportive by using active listening and reflection.
--- NOTE | 2018-04-13 13:43 | BH.SGPN_ITS ---
Service Group Progress Note - Session Psychotherapy Session #2 Date Open:: 04/13/18 - 6 group members Time Started:: 10:10 Time Stopped:: 11:07 Targeted Problem #:: 1 Type of Group:: Illness Management Goal of Group:: To increase self-awareness of current reality in regards to mental wellness and desired mental wellness. Client Response/Progress/Benefit:: Client responded well to session, quiet, but participating when prompted. Client created a visual representation of her current mental health reality which depicted client driving on a road going very slow with multiple barriers in front of her. Client shared in her current reality depression and lack of motivation keep client from moving forward quickly. Client identified her desired reality as driving on the same road, but having overcome most of her barriers. Client shared ?I know there will always be barriers,? but in client?s desired reality she has more motivation to manage them. Client stated her desired reality is there ?but I?m taking my time to get there.? Client shared knowing she has improved from depression before helps client stay hopeful. Client appeared to benefit from gaining awareness of her current mental health reality. Progress noted as client report utilizing coping skills to reduce negative maintenance cycles, but continues to struggle with depressive symptoms and with lack of engagement in group. Eye Contact:: Fair Motor Activity:: Appropriate Appearance:: Casual Speech:: Appropriate Mood:: Depressed Affect:: Flat Thoughts:: Linear, Logical, No evidence of hallucinations/delusions noted Staff Interventions:: Therapist facilitated group discussion about current reality in regards to mental health. Client provided each group member a piece of paper and asked them to draw their current reality. Therapist led the processing of each group member?s drawing. Therapist provided each group member with a second piece of paper and asked clients to draw desired mental wellness. Therapist processed each group member?s drawing, helping clients connect the two realities. Psychotherapy Session #3 Date Open:: 04/13/18 - 5 group members Time Started:: 11:17 Time Stopped:: 11:54 Targeted Problem #:: 1 Type of Group:: Functional Skills Development Goal of Group:: To identify obstacles in client?s path to mental wellness and identify strategies to help clients overcome these obstacles. Client Response/Progress/Benefit:: Client responded well to session, passive participant in activity. Client identified personal barriers keeping client from reaching her desired reality such as exhaustion, lack of motivation, depression, and being stuck at her job. Client shared these obstacles prevent client from moving forward at the spend she wants and they also lead to negative self-talk and isolation. Client participated in the activity and helped the group identify strategies to overcome barriers. The strategies included positive affirmations, thought challenging, and setting small goals. Client appeared to benefit from increasing awareness of barriers and gaining knowledge for how to overcome barriers. Client to continue IOP to promote mood stability and prevent decompensation. Eye Contact:: Good Motor Activity:: Appropriate Appearance:: Casual Speech:: Appropriate Mood:: Depressed Affect:: Flat Thoughts:: Linear, Logical, No evidence of hallucinations/delusions noted Staff Interventions:: Therapist facilitated group discussion about obstacles and the hesitations of overcoming obstacles. Client led group in discussion about what obstacles they have control over and which obstacles are out of their control. Therapist helped clients connect how each obstacle is preventing them from achieving their desired reality. Therapist led an activity aimed to help clients use teamwork and problem-solving to establish strategies for overcoming obstacles. Therapist assisted clients in creating a list of various strategies to promote emotional wellness and overcome barriers. Therapist provided support by using reflective listening and providing feedback.
--- NOTE | 2018-04-18 15:46 | BH.COMM ---
Communication Note - Communication with Client Communication Note: Client called and canceled appointment to attend group on this date. Therapist attempted to return clients call check-in; however, was unable to reach client. Discrete message was left encouraging client to return this therapist call. Client is scheduled to attend group on the following date and therapist will check in with client at that time.
--- NOTE | 2018-04-19 14:56 | BH.SGPN_ITS ---
Service Group Progress Note - Session Psychotherapy Session #2 Date Open:: 04/19/18 - 8 group members Time Started:: 10:18 Time Stopped:: 11:15 Targeted Problem #:: 1 Type of Group:: Illness Management Goal of Group:: To increase understanding of what conflict is and increase awareness of how group members manage conflict. Client Response/Progress/Benefit:: Client responded well to session, provided insight when prompted by therapist. Client connected with the quote, nodding in agreement to peers? comments. Client stated conflict is when there are differences in values or views. Client agreed that one can have external or internal conflict. Client identified using the competing conflict resolution type most often. Client shared she is happy with being more aggressive as she feels it is needed at work. Client reported she is often a ?loner? as well, which at times can be unhelpful when struggling with internal conflict. Client appeared to benefit from gaining awareness of how she manages conflict. Progress noted as client reports less intensity of symptoms, but continues to struggle with establishing healthy interpersonal relationships. Eye Contact:: Good Motor Activity:: Appropriate Appearance:: Casual Speech:: Appropriate Mood:: Irritable Affect:: Constricted Thoughts:: Linear, Logical, No evidence of hallucinations/delusions noted Staff Interventions:: Therapist facilitated discussion about conflict and conflict resolution. Therapist led group in an activity in which group members had to identify their initial response to conflict and how their response changes based on different situations. Therapist assisted clients with connecting the impact current conflict style has on their mental health.
--- NOTE | 2018-04-19 15:46 | BH.SGPN ---
Service Group Progress Note - Session Psychotherapy Session #1 Date Open:: 04/19/18 Time Started:: 09:05 Time Stopped:: 10:11 Targeted Problem #:: 1 Type of Group:: Process - 8 participants Goal of Group:: The goal of today's group was to check-in with clients and review homework from previous group session. Client Response/Progress/Benefit:: Client receptive of session and willing to engage in discussion throughout. She shared being sick the last 2 days which is why she had to cancel group attendance yesterday. Discussed that her son is also sick which has been somewhat stressful however feels as though her current symptoms of depression have begun to decrease. She shared spending time with her son and friend Cam on Tuesday with plans to go to the movie. Client went on to explain that upon backing her truck out of the parking lot she got stuck on a rock and ended up having to call a tow truck. She expressed becoming momentarily upset but overall she was able to successfully manage her emotions and prevent panicing. Client attributes this to using her supports to calm her down and challenging herself to identify the humor in the situation. Client went on to discuss that at work things have begun to calm down and is therefore making the work environment less stressful. Client benefited from support of the group environment as well as reflecting upon areas in which client is beginning to see progress. Client displaying progress in her use of radical acceptance as a form of thought challenging and is indicating improved boundaries, as evidenced by client discussing no longer being in contact with her ex. Recommended continued IOP to prevent decompensation and promote healthy decision making skills as well as components of healthy relationships. Eye Contact:: Fair Motor Activity:: Appropriate Appearance:: Casual Speech:: Appropriate Mood:: Euthymic Affect:: Congruent Thoughts:: Linear, Logical, No evidence of hallucinations/delusions noted Staff Interventions:: Therapist facilitated the group session by asking open ended questions that encouraged group members to discuss their weekend and current mood state. Assisted group members in the review of their homework from previous group session.
--- NOTE | 2018-04-19 16:13 | BH.MDN_ITS ---
Multi-Disciplinary Note - Note 60-min Individual Time Started:: 11:55 Date: 04/19/18 Purpose of session/treatment goals addressed:: Purpose of this session was to review progress in relation to treatment goals. Another purpose was to discuss strategies for managing the end of a relationship in the future and establish a Post Break-Up Survival Plan to aid in emotion regulation and prevent crisis escalation. Eye Contact:: Good Motor Activity:: Appropriate Appearance:: Casual Speech:: Appropriate Mood:: Euthymic Affect:: Congruent Thoughts:: Linear, Logical, No evidence of hallucinations/delusions noted Staff Interventions:: Therapist asked open-ended questions to explore current symptoms and use of healthy emotion regulation skills. Used strengths-based approach to aid Client in identifying areas of progress in applying treatment skills learned. Used reflective listening and gently challenged client as she discussed current stressors and reconnecting with a former friend. Provided encouragement and used CBT strategies to work with CLient on completing a plan for dealing with future break-ups. Client Response:: Client responded well to session and was engaged throughout the discussion. She shared noticing an improvement in symptoms of depression in the past week. Client expressed feeling as though she has more energy and is overall more positive and present. client attribute improved mood to reaching out to her neighbor,whom client identifies as a major support, as well as a decrease in financial and occupational stressors. She went onto explain that ? things have finally started to calm down? regarding the difficulties she had been experiencing in the workplace. Client noted that the paycheck mistake had been fixed well which alleviated much of client?s stress. Client spent time discussing how she had decided to reach back out to her neighbor as a support despite a previous falling out and indicated planning to go on a trip to the beach with him. Therapist challenged client regarding whether she was maintaining healthy boundaries and if going on a trip together was something she felt would be healthy given client ongoing difficulties in overcoming her most recent breakup. Client ensured that the nature of the relationship was platonic and that steps have been taken to ensure that firm boundaries and expectations were communicated. Client receptive of spending time discussing strategies for managing the end of a relationship and completing a ?post breakup survival plan? including warning signs, things to avoid doing, healthy coping skills, and supports. Client indicated that she has successfully cut off contact with most recent ex but often struggles in doing so sure to difficulties with being alone. Client shared wanting to work on increasing independent and positive self talk when not in a relationship. Open to reviewing breakup management plan with supports to add any potential insights as well as complete a letter to kyree to read following any potential future breakups. Risks/Concerns:: Denies any suicidal ideations, plan, or intent as of this date -04/19/18. No risks or concerns noted. Client future oriented and aware of crisis resources available. Progress Toward Goals/Plan:: Some progress. Client is showing improvements in her ability to set and maintain boundaries. She expressed successfully maintaining a clear boundary with her ex and was able to establish set expectations and boundaries upon reconnecting with an estranged friend. CLient additionally indicates an overall all decrease in sx of depression to which she attributes spending more time with her son and challenging negative thoughts. CLient displays difficulties in engaging in group sessions and often takes on a passive observatory role, however has set a personal goal to increase participation. Client continues to express struggling with isolation and difficutlies maintaining healthy balance between her personal life and other areas such as work. CLient recommended continued IOP treatment to increase client use of healthy skills, specifically reaching out to healthy supports as well as continued maintainence of appropriate boundaries. Time Stopped:: 12:49
--- NOTE | 2018-04-24 11:49 | BH.SGPN ---
Service Group Progress Note - Session Psychotherapy Session #1 Date Open:: 04/24/18 Time Started:: 09:07 Time Stopped:: 10:18 Targeted Problem #:: 1 Type of Group:: Process - 8 participants Goal of Group:: The goal of today's group was to check-in with client's mood, stressors, and positives, review homework and introduce topic for the day. Client Response/Progress/Benefit:: Client responded well to session and was willing to share with the group. She discussed feeling proud of herself last week as she had been able to apply the conflict resolution skills learned in group to her own life. CLient discussed that she attempted to go from acting like a shark to acting like a dolphin and take a more collaberative problem solving approach to a disagreement she had encountered. Client discussed being somewhat successful in doing so and is trying to contiue to apply effective communication ad conflict resolution strategies to daily life. SHe went on to share spending a lot of time working overtime as she is saving to go to the beach. CLient struggled to identify self care strategies she is using in order to maintain work/life balance and appeared to benefit from discussing burnout prevention with the group. CLient continues to struggle with taking on more than she can actually handle. CLient recommended continued IOP to continue to make progress in healthy boundary setting and emotion regulation skills. Eye Contact:: Good Motor Activity:: Appropriate Appearance:: Casual Speech:: Appropriate Mood:: Euthymic, Anxious Affect:: Full Thoughts:: Linear, Logical, No evidence of hallucinations/delusions noted Staff Interventions:: Therapist used open-ended questions to elicit information about client's current stressors and mood state. Therapist was supportive by using active listening and reflection. Therapist utilized a quote as a tool in introducing the topic of the day.
--- NOTE | 2018-04-24 14:38 | BH.SGPN ---
Service Group Progress Note - Session Psychotherapy Session #2 Date Open:: 04/24/18 - 9 group members Time Started:: 10:25 Time Stopped:: 11:15 Targeted Problem #:: 1 Type of Group:: Illness Management Goal of Group:: To increase understanding of communication and the various types of communication. Another goal was to increase understanding of impact communication styles can have. Client Response/Progress/Benefit:: Client responded well to session, more active in group than previous sessions. Client reported communication is important to help supports understand ones mental health, emotions, and needs. Client identified communication roadblocks such anger, coworkers, and nonverbal communication. Client helped the group identify the different communication types along with the payoffs and costs of each. Client reported she uses aggressive and passive-aggressive communication most of the time. Client reported it feels good in the moment to get my emotions out, but stated after realizes she could have handled it a different way. Client appeared to benefit from gaining awareness of how communication impacts mental health. Progress noted as evidenced by clients report of an improved mood, but can continue to benefit from coping skill maintenance to prevent decompensation. Eye Contact:: Good Motor Activity:: Appropriate Appearance:: Casual Speech:: Appropriate Mood:: Euthymic Affect:: Congruent Thoughts:: Linear, Logical, No evidence of hallucinations/delusions noted Staff Interventions:: Therapist facilitated the group discussion about communication and explained the different types of communication. Therapist assisted group members in connecting the communication styles to the way they communicate and impact the communication style has on their relationships. Therapist provided support by using active listening and providing feedback. Psychotherapy Session #3 Date Open:: 04/24/18 - 7 group members Time Started:: 11:25 Time Stopped:: 12:15 Targeted Problem #:: 1 Type of Group:: Functional Skills Development Goal of Group:: To identify important components of communication and practice specific, clear communication. Client Response/Progress/Benefit:: Client responded well to session, active participant, using assertive communication in activity. Client provided positive feedback and used direct communication to provide information to peers. Client expressed she wants to be more assertive when communicating but when it doesnt work out I turn to aggressive. Client helped the group identify strategies to improve communication such as having awareness of nonverbals and body language, being direct, and describing her needs and emotions so supports can understand. Client appeared to benefit from gaining awareness of the pros of using more assertive communication and strategies to improve communication. Client to continue IOP to prevent decompensation and increase emotional regulation skills. Eye Contact:: Good Motor Activity:: Appropriate Appearance:: Casual Speech:: Appropriate Mood:: Euthymic Affect:: Congruent Thoughts:: Linear, Logical, No evidence of hallucinations/delusions noted Staff Interventions:: Therapist led the discussion about important components of effective communication. Therapist had volunteers from group participate in a reverse Pictionary game. The game required all group members to provide clear, specific, and assertive communication to help the volunteer draw the correct image. Therapist used the activity as to connect the importance of effective communication in mental health treatment. Therapist processed the activity with the group and helped the group identify strategies to improve communication skills.
--- NOTE | 2018-04-24 14:46 | BH.SGPN_ITS ---
Service Group Progress Note - Session Psychotherapy Session #2 Date Open:: 04/24/18 - 9 group members Time Started:: 10:25 Time Stopped:: 11:15 Targeted Problem #:: 1 Type of Group:: Illness Management Goal of Group:: To increase understanding of communication and the various types of communication. Another goal was to increase understanding of impact communication styles can have. Client Response/Progress/Benefit:: Client responded well to session, more active in group than previous sessions. Client reported communication is important to help supports understand one?s mental health, emotions, and needs. Client identified communication ?roadblocks? such anger, coworkers, and nonverbal communication. Client helped the group identify the different communication types along with the payoffs and costs of each. Client reported she uses aggressive and passive-aggressive communication most of the time. Client reported ?it feels good in the moment to get my emotions out,? but stated after realizes she could have handled it a different way. Client appeared to benefit from gaining awareness of how communication impacts mental health. Progress noted as evidenced by client?s report of an improved mood, but can continue to benefit from coping skill maintenance to prevent decompensation. Eye Contact:: Good Motor Activity:: Appropriate Appearance:: Casual Speech:: Appropriate Mood:: Euthymic Affect:: Congruent Thoughts:: Linear, Logical, No evidence of hallucinations/delusions noted Staff Interventions:: Therapist facilitated the group discussion about communication and explained the different types of communication. Therapist assisted group members in connecting the communication styles to the way they communicate and impact the communication style has on their relationships. Therapist provided support by using active listening and providing feedback. Psychotherapy Session #3 Date Open:: 04/24/18 - 7 group members Time Started:: :25 Time Stopped:: 12:15 Targeted Problem #:: 1 Type of Group:: Functional Skills Development Goal of Group:: To identify important components of communication and practice specific, clear communication. Client Response/Progress/Benefit:: Client responded well to session, active participant, using assertive communication in activity. Client provided positive feedback and used direct communication to provide information to peers. Client expressed she wants to be more assertive when communicating ?but when it doesn?t work out I turn to aggressive.? Client helped the group identify strategies to improve communication such as having awareness of nonverbals and body language, being direct, and describing her needs and emotions so supports can understand. Client appeared to benefit from gaining awareness of the pros of using more assertive communication and strategies to improve communication. Client to continue IOP to prevent decompensation and increase emotional regulation skills. Eye Contact:: Good Motor Activity:: Appropriate Appearance:: Casual Speech:: Appropriate Mood:: Euthymic Affect:: Congruent Thoughts:: Linear, Logical, No evidence of hallucinations/delusions noted Staff Interventions:: Therapist led the discussion about important components of effective communication. Therapist had volunteers from group participate in a reverse Pictionary game. The game required all group members to provide clear , specific, and assertive communication to help the volunteer draw the correct image. Therapist used the activity as to connect the importance of effective communication in mental health treatment. Therapist processed the activity with the group and helped the group identify strategies to improve communication skills.
--- NOTE | 2018-04-27 08:55 | BH.COMM ---
Communication Note - Communication with Client Communication Note: Client called and left a message canceling group attendance for this date due to childcare issues. CLient request to switch dates for group to tomorrow, 04/28/18.
--- NOTE | 2018-04-28 12:50 | BH.SGPN ---
Service Group Progress Note - Session Psychotherapy Session #2 Date Open:: 04/28/18 Time Started:: 10:30 Time Stopped:: 11:20 Targeted Problem #:: 1 Type of Group:: Illness Management Goal of Group:: To increase understanding of cognitive distortions, identify examples of when have had unhelpful thinking, and increase awareness of the impact cognitive distortions have on mental health. Client Response/Progress/Benefit:: Client passive participant, appeared to listen to others but added few contributions to discussion. Client showed increased engagement during challenge activity AEB sharing thoughts and ideas. During discussion about cognitive distortions client connected with the predicting the future distortion and mind reading. Client nodding her in head in agreement with a peer's comment about thinking a signficiant other is mad at her even without evidence of this. Client able to connect impact her thoughts can have on progress and often leads to a self-fulfilling prophecy. Client seemed to benefit from increasing awareness of cognitive distortions and impact distortions can have on progress. Eye Contact:: Fair Motor Activity:: Appropriate Appearance:: Casual Speech:: Appropriate Mood:: Dysthymic Affect:: Constricted Thoughts:: Linear, No evidence of hallucinations/delusions noted Staff Interventions:: Therapist provided group members with a handout that listed ten cognitive distortions with examples. Therapist facilitated group discussion about cognitive distortions. Therapist led group members in an activity to help them understand the impact cognitive distortions can have on emotions and behavior. Therapist provided support by using active listening and providing feedback. Psychotherapy Session #3 Type of Group:: Functional Skills Development
--- NOTE | 2018-04-28 14:55 | BH.SGPN_ITS ---
Service Group Progress Note - Session Psychotherapy Session #1 Date Open:: 04/28/18 Time Started:: 09:08 Time Stopped:: 10:18 Targeted Problem #:: 1 Type of Group:: Process - 7 participants Goal of Group:: The goal of today's group was to check-in with client's mood, stressors, and positives, review homework and introduce topic for the day. Client Response/Progress/Benefit:: Receptive to session and remained engaged throughout. She did well to provide input and process current thoughts and feelings with the group. 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 She did well to identify that although working overtime has been stressful she has been glad to bring an extra money so she and her son may have spending money for their upcoming trip to [place]. Client additionally discussed that in the last 2 weeks she has found herself able to enjoy the work environment, joke around with coworkers, and is feeling more like her old self. Client discussed not looking forward to the trip as she is going to visit her brother with her parents and explain often becoming frustrated or annoyed with her parents. Client did well to discuss with the group a healthy plan for coping becoming overwhelmed or irritated on her trip. She shared setting aside specific times for her and her son to spend away from the rest of the family which client believes will help with managing stress. Client is displaying progress in regulation of depressive symptoms and indicates decreased anxiety levels. She benefited from identifying healthy skills she may use on her upcoming trip and is recommended continued IOP to ensure client sustained healthy management of mental health symptoms upon return from trip to [place] next week as well as continue to work on implementing healthy boundaries setting skills. Eye Contact:: Fair Motor Activity:: Appropriate Appearance:: Casual Speech:: Appropriate Mood:: Euthymic Affect:: Labile Thoughts:: Linear, Logical, No evidence of hallucinations/delusions noted Staff Interventions:: Therapist used open-ended questions to elicit information about client's current stressors and mood state. Therapist was supportive by using active listening and reflection.
--- NOTE | 2018-04-28 16:33 | BH.MDN ---
Multi-Disciplinary Note - Note 30-min Individual Time Started:: 11:25 Date: 04/28/18 Purpose of session/treatment goals addressed:: The purpose of this session was to assess symptom management, evaluate progress, and discuss areas of continued frustration. Another goal was to review coping skills and create a self-care/stress management plan for client upcoming trip. Eye Contact:: Good Motor Activity:: Appropriate Appearance:: Casual Speech:: Appropriate Mood:: Euthymic Affect:: Congruent Thoughts:: Linear, Logical, No evidence of hallucinations/delusions noted Staff Interventions:: Therapist asked open-ended questions and implemented the DSM-5 cross cutting symptom measure to assess client's progress. Therapist processed progress with client and gathered client perception of areas of progress and ongoing difficulties. Aided client in identifying goals and skills to continue working on to promote mood stability and maintain gains. Therapist used strengths perspective to boost client confidence regarding progress and increased levels of insight. Assisted client in identifying skills to apply in creation of a stress management and self-care plan for upcoming trip. Client Response:: Client responded well to session, and did well to openly discuss current areas of progress and ongoing concerns regarding treatment goals and management of mental health symptoms. Client discussed that she has not had much time for herself lately as she has been required to work mandatory 7's at work. She explained that aside from feeling exhausted, she has found the influx in work to be going better than expected. Client discussed that she has been spending more time focusing on the positive and reminding herself to stay away from coworkers who she knows are often involved in workplace drama. CLient discussed that fellow employees have commented on her improved mood and are beginning to reach out to include client in the conversation. She did well to make connections between the decrease in stress levels at work and improved mood at home. She shared that although she is less stressed at work she has noticed an increase in anxiety as her trip to visit her brother in [place] gets closer. Client discussed that she is supposed to leave Tuesday and has not begun packing. Client identified worrying about being around her mother for that long as well as meeting her brother's new girlfriend. Client shared she does not like meeting new people and is not very close with her brother to begin with. She is displaying progress in her ability to identify what skills may be effective for managing stress levels and preventing mood dysregulation. Client worked with therapist to establish a self-care plan for the trip and client set times in which she would be able to spend time away from the rest or the family either alone or with her son. Client and therapist discussed current progress in treatment and with managing mental health sx as client is retirement through the IOP program. Client reports observing areas of progress in her ability to manage stressors without becoming overwhelmed and panicking or shutting down and isolating. She expressed beginning to think about reaching out to old supports so that she has more people to contact as her relationship with current supports is not always a healthy one. Client expressed wanting to work on continuing to identify crisis warning signs and skills she can implement to manage distress and prevent escalating during times of high stress, anxiety, or following the end of a relationship. Client and therapist discussed aftercare options and client agreeable to reach out to [facility] to set up an intake assessment. Risks/Concerns:: No concerns at this time. Client denies suicidal ideation, plan, and intent as of 04/28/18. She is aware of local crisis resources available and willing to utilize should she no longer feel able to maintain safety. Progress Toward Goals/Plan:: Client is demonstrating progress towards treatment goals as indicated by verbalization of decreased symptoms of depression and anxiety. CLient indicates she has not had a panic attack since beginning IOP program and is starting to see increased blake in daily activities. Client additionally has reduced overall scores in depression and anxiety categories of the DSM-5 symptom measure. Client reports others have begun to notice her improved mood and increased levels of socialization. CLient additionally is displaying increased insight into warning signs for emotion disregulation and irritability and indicates use of healthy coping skills when noticing such. Client does continue to report difficulties in maintaining healthy boundaries and continues to struggle with distorted thinking patterns, specifically dichotomous thinking. Client to continue IOP to prevent decompensation and promote increased consistency in mood stabilization and implementation of healthy coping strategies. Client to follow up with outpatient counseling referral for Mary. Time Stopped:: 11:52
--- NOTE | 2018-04-28 18:15 | BH.MDN_ITS ---
Multi-Disciplinary Note - Note 30-min Individual Time Started:: 11:25 Date: 04/28/18 Purpose of session/treatment goals addressed:: The purpose of this session was to assess symptom management, evaluate progress, and discuss areas of continued frustration. Another goal was to review coping skills and create a self-care/ stress management plan for client upcoming trip. Eye Contact:: Good Motor Activity:: Appropriate Appearance:: Casual Speech:: Appropriate Mood:: Euthymic Affect:: Congruent Thoughts:: Linear, Logical, No evidence of hallucinations/delusions noted Staff Interventions:: Therapist asked open-ended questions and implemented the DSM-5 cross cutting symptom measure to assess client's progress. Therapist processed progress with client and gathered client perception of areas of progress and ongoing difficulties. Aided client in identifying goals and skills to continue working on to promote mood stability and maintain gains. Therapist used strengths perspective to boost client confidence regarding progress and increased levels of insight. Assisted client in identifying skills to apply in creation of a stress management and self-care plan for upcoming trip. Client Response:: Client responded well to session, and did well to openly discuss current areas of progress and ongoing concerns regarding treatment goals and management of mental health symptoms. Client discussed that she has not had much time for herself lately as she has been required to work mandatory 7's at work. She explained that aside from feeling exhausted, she has found the influx in work to be going better than expected. Client discussed that she has been spending more time focusing on the positive and reminding herself to stay away from coworkers who she knows are often involved in workplace drama. CLient discussed that fellow employees have commented on her improved mood and are beginning to reach out to include client in the conversation. She did well to make connections between the decrease in stress levels at work and improved mood at home. She shared that although she is less stressed at work she has noticed an increase in anxiety as her trip to visit her brother in [place] gets closer. Client discussed that she is supposed to leave Tuesday and has not begun packing. Client identified worrying about being around her mother for that long as well as meeting her brother's new girlfriend. Client shared she does not like meeting new people and is not very close with her brother to begin with. She is displaying progress in her ability to identify what skills may be effective for managing stress levels and preventing mood dysregulation. Client worked with therapist to establish a self- care plan for the trip and client set times in which she would be able to spend time away from the rest or the family either alone or with her son. Client and therapist discussed current progress in treatment and with managing mental health sx as client is long term through the IOP program. Client reports observing areas of progress in her ability to manage stressors without becoming overwhelmed and panicking or shutting down and isolating. She expressed beginning to think about reaching out to old supports so that she has more people to contact as her relationship with current supports is not always a healthy one. Client expressed wanting to work on continuing to identify crisis warning signs and skills she can implement to manage distress and prevent escalating during times of high stress, anxiety, or following the end of a relationship. Client and therapist discussed aftercare options and client agreeable to reach out to [facility] to set up an intake assessment. Risks/Concerns:: No concerns at this time. Client denies suicidal ideation, plan , and intent as of 04/28/18. She is aware of local crisis resources available and willing to utilize should she no longer feel able to maintain safety. Progress Toward Goals/Plan:: Client is demonstrating progress towards treatment goals as indicated by verbalization of decreased symptoms of depression and anxiety. CLient indicates she has not had a panic attack since beginning IOP program and is starting to see increased blake in daily activities. Client additionally has reduced overall scores in depression and anxiety categories of the DSM-5 symptom measure. Client reports others have begun to notice her improved mood and increased levels of socialization. CLient additionally is displaying increased insight into warning signs for emotion disregulation and irritability and indicates use of healthy coping skills when noticing such. Client does continue to report difficulties in maintaining healthy boundaries and continues to struggle with distorted thinking patterns, specifically dichotomous thinking. Client to continue IOP to prevent decompensation and promote increased consistency in mood stabilization and implementation of healthy coping strategies. Client to follow up with outpatient counseling referral for Mary. Time Stopped:: 11:52
--- NOTE | 2018-04-28 18:16 | BH.TPR ---
Treatment Plan Review Date of Admission:: 03/29/18 Date of Treatment Plan Review:: 04/28/18 Admitting Diagnoses:: Major depressive disorder recurrent severe F 33.2. Anxiety unspecified. ADHD by history Current Diagnoses:: Major depressive disorder recurrent severe F 33.2. Anxiety unspecified
== END 2018-04-29 23:59 ==
LOC: BHIOP 09:00
PROVIDERS: Family Provider Student in an Organized Health Care Education/Training Program; PCP Student in an Organized Health Care Education/Training Program; Visit Provider Psychiatry & Neurology Psychiatry
DX: F33.2 Major depressive disorder, recurrent severe without psychotic features (principal); F41.9 Anxiety disorder, unspecified; F90.9 Attention-deficit hyperactivity disorder, unspecified type; Z79.899 Other long term (current) drug therapy
CPT/HCPCS: H0035; 90832; 90834; 90837; 90853

== ENCOUNTER 2018-05-08 09:00 | Outpatient (RCR) | payer BC, SELFPAY ==
--- NOTE | 2018-05-08 09:10 | BH.SGPN.GN ---
Behaviors/Verbalizations/Mental Status: [] Client eye contact fair, often staring at ground. Motor activity appropriate and speech WNL. Client dress is casual, wearing athletic clothing. Mood is euthymic, affect congruent. Thoughts are linear and logical. No delusions/hallucinations noted. Client Response/Progress/Benefit: []Client receptive of session, mostly passive in participation. She did share with the group and appeared to be listening as other participants shared. This was evidenced by client nodding her head throughout. Client shared that she is happy to be home form her family's trip to [place] as she does not enjoy the environment of the state. Client discussed that the trip had gone better than expected as client was able to get along with her mother for a majority of the time and did well to take breaks away from the family as needed. She indicated feeling more like her old self lately and discussed having increased energy, feeling more positive, and increased motivation to complete house projects. CLient displaying progress in her ability to set and maintain healthy boundaries as well as use healthy skills for emotion regulation. Recommended continued IOP to maintain stability as client completes discharge planning.
--- NOTE | 2018-05-08 10:27 | BH.SGPN.GN ---
Behaviors/Verbalizations/Mental Status: []Client alert and oriented, casual dress. Eye contact good. Motor activity appropriate. Speech within normal limits. Affect constricted, mood euthymic. Thoughts linear, logical, no signs of hallucinations or delusions. Client Response/Progress/Benefit: []Client responded well to session, providing good insight to discussion. Client connected with the topic of stress, sharing it impacts all areas of your life. Client helped group identify the physical, mental, behavioral, and emotional impacts of stress. Client reported that not all stress is bad for functioning, but if one does not manage stress it can result in depression, anxiety, and shutting down. Client identified current stressors in her life such as family, work, home repairs, dogs, and physical limitations. Client shared I have less stress than I did last time I did IOP and I'm not overflowing. Client stated when her stressors are not managed client shuts down, is irritable, and feels helpless. Client appeared to benefit from gaining awareness of her current stressors and how they impact mental health. Client to continue IOP to prevent decompensation and increase mood stability.
--- NOTE | 2018-05-08 11:29 | BH.SGPN.GN ---
Error in documentation, client was at IOP this day, but did not attend this group (group 3) and was not billed for this service. Behaviors/Verbalizations/Mental Status: [] Client Response/Progress/Benefit: []
--- NOTE | 2018-05-08 15:30 | BH.MDN ---
Multi-Disciplinary Note - Note 30-min Individual Time Started:: 12:07 Date: 05/08/18 Purpose of session/treatment goals addressed:: The purpose of this session was to assess current symptoms and treatment goal progress. Another purpose was to review strategies for maintaining gains and use of healthy boundaries post discharge. Additional topics included: beginning discharge planning. Eye Contact:: Good Motor Activity:: Appropriate Appearance:: Casual Speech:: Appropriate Mood:: Euthymic Affect:: Congruent Thoughts:: Linear, Logical, No evidence of hallucinations/delusions noted Staff Interventions:: Therapist used open ended questions to elicit client's thoughts regarding current symptom management and treatment progress. Processed client recent trip and aided client in identifying use of healthy emotion regulation skills throughout. Therapist worked collaboratively with client to identify strategies to assist client in maintainin success post-discharge. Therapist discussed with client plan for discharge, encouraging client to follow up with individual counseling for aftercare. Client Response:: Client agreeable to meeting with this therapist to discuss progress and process client recent trip to visit family in [place]. Client discussed that the trip had gone better than she had expected and that she was able to manage the stress of being around her family without major problems. CLient reports that she and her son were able to set aside time just for them which was a good way for her to relax and destress. CLient discussed meeting her brother's girlfriend had been less anxiety provocing than she had anticipated and that it was actually a positive experience. She shared that despite the trip going well, she is beginning to worry about leaving her son with her mother when CLient goes to [facility] at the end of the month. Client explained that her mother does not always pay attention to what her son is doing and that he has previously watched inappropriate [employer] videos while in her care. CLient worked with therapist to problem solve and indicated that she could see if his father would watch him part of the time. She discussed overall feeling as though she is back to my old self and explained evangelista she has been experiencing an increase in motivation and desire to do things. Client reflected that the depression isn't really there anymore. CLient and therapist agreed that at this time stepdown to outpatient individual counseling would be appropriate with her last day in the program being . CLient indicated that she has not yet called to schedule an intake assessment with [facility], however indicates plans to do so in the next few days. Client and therapist discussed strategies for her to maintain her stability and success post discharge from [facility]. She indicated that having a plan for managing future breakup's would be most beneficial for her as sometimes she forgets what she learned. Risks/Concerns:: No risks or concerns at this time. Client denies suicidal ideation, plan or intention to date, 05/06/18. Progress Toward Goals/Plan:: Client has made positive progress since admission to [facility] program. She reports decreased depressive and anxious symptoms. Client has displayed an increased ability to identify warning signs and triggers for her depression and is sucessfully implementing and maintaining healthy boundaries at this time. CLient has improved use of healthy coping skills and mood stability. Plan is for client to discharge from [facility] , 05/11/18, due to meeting treatment goals and no longer meeting medical necessity for [facility] level of care. Time Stopped:: 12:37
--- NOTE | 2018-05-08 16:47 | BH.MDN_ITS ---
Multi-Disciplinary Note - Note 30-min Individual Time Started:: 12:07 Date: 05/08/18 Purpose of session/treatment goals addressed:: The purpose of this session was to assess current symptoms and treatment goal progress. Another purpose was to review strategies for maintaining gains and use of healthy boundaries post discharge. Additional topics included: beginning discharge planning. Eye Contact:: Good Motor Activity:: Appropriate Appearance:: Casual Speech:: Appropriate Mood:: Euthymic Affect:: Congruent Thoughts:: Linear, Logical, No evidence of hallucinations/delusions noted Staff Interventions:: Therapist used open ended questions to elicit client's thoughts regarding current symptom management and treatment progress. Processed client recent trip and aided client in identifying use of healthy emotion regulation skills throughout. Therapist worked collaboratively with client to identify strategies to assist client in maintainin success post-discharge. Therapist discussed with client plan for discharge, encouraging client to follow up with individual counseling for aftercare. Client Response:: Client agreeable to meeting with this therapist to discuss progress and process client recent trip to visit family in [place]. Client discussed that the trip had gone better than she had expected and that she was able to manage the stress of being around her family without major problems. CLient reports that she and her son were able to set aside time just for them which was a good way for her to relax and destress. CLient discussed meeting her brother's girlfriend had been less anxiety provocing than she had anticipated and that it was actually a positive experience. She shared that despite the trip going well, she is beginning to worry about leaving her son with her mother when CLient goes to [facility] at the end of the month. Client explained that her mother does not always pay attention to what her son is doing and that he has previously watched inappropriate [employer] videos while in her care. CLient worked with therapist to problem solve and indicated that she could see if his father would watch him part of the time. She discussed overall feeling as though she is back to my old self and explained evangelista she has been experiencing an increase in motivation and desire to do things. Client reflected that the depression isn't really there anymore. CLient and therapist agreed that at this time stepdown to outpatient individual counseling would be appropriate with her last day in the program being . CLient indicated that she has not yet called to schedule an intake assessment with Magi Avendaño, however indicates plans to do so in the next few days. Client and therapist discussed strategies for her to maintain her stability and success post discharge from [facility]. She indicated that having a plan for managing future breakup's would be most beneficial for her as sometimes she forgets what she learned. Risks/Concerns:: No risks or concerns at this time. Client denies suicidal ideation, plan or intention to date, 05/06/18. Progress Toward Goals/Plan:: Client has made positive progress since admission to [facility] program. She reports decreased depressive and anxious symptoms. Client has displayed an increased ability to identify warning signs and triggers for her depression and is sucessfully implementing and maintaining healthy boundaries at this time. CLient has improved use of healthy coping skills and mood stability. Plan is for client to discharge from [facility] , 05/11/18, due to meeting treatment goals and no longer meeting medical necessity for [facility] level of care. Time Stopped:: 12:37
--- NOTE | 2018-05-11 08:31 | BH.AFTERPLAN ---
Aftercare Plan - Demographics Treatment End Date:: 05/11/18 Psychiatrist:: Sylvia Patricio Psychiatrist Office #:: [phone] [facility]/IOP Therapist:: Tori Khan Therapist Phone #:: [phone] - Medications Home Medications: Home Medications Venlafaxine XR [Effexor Xr] 75 mg PO DAILY 06/10/17 busPIRone [Buspar] 10 mg PO TID PRN 03/31/18 traZODone [Desyrel] 50 mg PO QHS PRN 03/31/18 - Plan Details Progress/Aftercare Plan Details:: Since admission to the [facility] program, Pati has demonstrated consistent progress with managing her mental health symptoms. She has made positive progress since admission to IOP program. She reports decreased symptoms of both depression and anxiety and has displayed an increased ability to regulate her emotions. Pati has additionally gained insights into warning signs and triggers for her depression and is successfully implementing and maintaining healthy boundaries at this time. She has improved use of healthy coping skills and successfully refrained from using avoidance or isolation as her primary coping mechanism. Identified coping skills include challenging negative thoughts, allowing herself time to experience and process her emotions without reacting, as well as setting and consistently communicating boundaries. Pati has successfully completed assigned tx goals and notes an ability to maintain baseline functioning. Plan is for Pati to discharge from IOP , 05/11/18, due to meeting treatment goals and no longer meeting medical necessity for IOP level of care. Strategies for Success:: 1.Maintain healthy boundaries and avoid the DRAMA! 2. Stay focused on what your needs are and what you can handle! 3. Stick to the plan you made and remember to use the skills you put in it! 4. Communicate to supports and accept help when needed. 5. Review IOP binder for refresher. 6. Focus on what you can control. 7. Challenge the false justifications and negative talk! - Appointments Appointments/Referrals to Other Services:: A this time Client reports an ability to maintain baseline functioning without outpatient counseling. However, she has been encouraged to follow up with outpatient counselling services through [facility]. CLient will receive ongoing medication management through her Primary Care Provider.
--- NOTE | 2018-05-11 09:10 | BH.SGPN.GN ---
Behaviors/Verbalizations/Mental Status: [] Eye contact is poor. Motor activity is appropriate. Appearance is casual. Speech is appropriate. Mood is anxious and irritable. Affect is full. Thoughts are linear and logical. No evidence of hallucinations or delusions noted. Client Response/Progress/Benefit: [] Pt participated when prompted. Emotion for today is irritable. Reports frustration with traffic issues while driving to the program this AM. Shared that she feels that all aspects of her life are stabilizing. Denies any overwhelming stressors at work, home, or with family/friends. Feels that she is managing her anxiety, depression, and stress appropriately. Currently is working 7 days a week stating I actually like it stating the money is good and she is getting along with co-workers. Reports that she set up appt with an outpatient which she has been resistant to follow through with. Made some significant statements regarding setting boundaries while in relationships and the importance of staying out of relationships for awhile. Reports focusing more on herself. Progress noted while in the program. Has set up boundaries and is effecting managing her emotions. Plan is to discharge today.
--- NOTE | 2018-05-11 10:01 | BH.IGGP_ITS ---
Aftercare Plan - Demographics Treatment End Date:: 05/11/18 Psychiatrist:: Sylvia Patricio Psychiatrist Office #:: [phone] [facility]/IOP Therapist:: Tori Khan Therapist Phone #:: [phone] - Medications Home Medications: Home Medications Venlafaxine XR [Effexor Xr] 75 mg PO DAILY 06/10/17 busPIRone [Buspar] 10 mg PO TID PRN 03/31/18 traZODone [Desyrel] 50 mg PO QHS PRN 03/31/18 - Plan Details Progress/Aftercare Plan Details:: Since admission to the [facility] program, Pati has demonstrated consistent progress with managing her mental health symptoms. She has made positive progress since admission to IOP program. She reports decreased symptoms of both depression and anxiety and has displayed an increased ability to regulate her emotions. Pati has additionally gained insights into warning signs and triggers for her depression and is successfully implementing and maintaining healthy boundaries at this time. She has improved use of healthy coping skills and successfully refrained from using avoidance or isolation as her primary coping mechanism. Identified coping skills include challenging negative thoughts, allowing herself time to experience and process her emotions without reacting, as well as setting and consistently communicating boundaries. Pati has successfully completed assigned tx goals and notes an ability to maintain baseline functioning. Plan is for Pati to discharge from IOP , 05/11/18, due to meeting treatment goals and no longer meeting medical necessity for IOP level of care. Strategies for Success:: 1.Maintain healthy boundaries and avoid the DRAMA! 2. Stay focused on what your needs are and what you can handle! 3. Stick to the plan you made and remember to use the skills you put in it! 4. Communicate to supports and accept help when needed. 5. Review IOP binder for refresher. 6. Focus on what you can control. 7. Challenge the false justifications and negative talk! - Appointments Appointments/Referrals to Other Services:: A this time Client reports an ability to maintain baseline functioning without outpatient counseling. However , she has been encouraged to follow up with outpatient counselling services through [facility]. CLient will receive ongoing medication management through her Primary Care Provider.
--- NOTE | 2018-05-11 10:05 | BH.SGPN.GN ---
Behaviors/Verbalizations/Mental Status: []Client alert and orient x3. Maintained good eye contact throughout. motor activity appeared appropriate. Speech WNL. Client appearance was casual and comfortable, wearing athletic clothing. Grooming and hygiene well tended to. Mood euthymic, affect congruent with mood. Thoughts remaining linear logical, and void of delusion.hallucination. Client Response/Progress/Benefit: [] Client an active participant throughout and appeared to respond well to session. She indicated connecting with the group topic of healthy boundaries. Client discussed the boundaries are important not only for her own mental health benefits of thrombus. She shared at times struggling with maintaining healthy boundaries as she often ends up making exceptions. Client benefitted from the discussion reviewing various types of boundary setting and potential benefits of each. Client expressed connecting with rigid boundaries in some areas of her life and permeable in others. She is displaying progress in her ability to identify and maintain more consistent and healthier boundaries in her own life. Client recommended to continue applying these skills following discharge on this date. Narrative Note: []
--- NOTE | 2018-05-11 11:12 | BH.SGPN.GN ---
Behaviors/Verbalizations/Mental Status: [Client alert and orient x3. Appropriate Motor activity. Eye contact remained clear and consistent. Speech WNL, appropariate rate and tone. CLient appearance was casual, wearing athletic clothing, grooming and hygiene cared for. Mood was euthymic, positive, and affect congruent with mood. Thoughts remained linear and logical, no noted delusion or hallucinations. ] Client Response/Progress/Benefit: [Client responded well to session and was actively engaged in this discussion covering steps for setting healthy boundaries as well as describing her perception of her own personal boundaries. She discussed that for her she has learned to put people in boxes when they are toxic for her or she needs a break. Client provided the example of her relationship with her mother and did well to provide support to fellow participants indicating difficulties in setting boundaries with their loved ones. CLient appeared to benefit from reflecting upon ways she can translate her healthy boundaries with others to continuing to maintain healthy boundaries with herself and not take on more than she is capable of managing. Client displaying progress in her ability to identify and maintain more appropriate boundaries since admitting to IOP and is encouraged to continue to work on maintaining these with her outpatient counselor as client is to discharge on this date.] Narrative Note: []
--- NOTE | 2018-05-11 12:26 | BH.DS ---
Discharge Summary - Demographics Date of Admission:: 03/29/18 Discharge Date: 05/11/18 Presenting Problems at Admission:: Patient is a 28-year-old female who presented to [facility] post inpatient psychiatric hospitalization at [facility] for depression with suicidal ideation following a recent breakup. At time of admission client endorsed a depressed mood with anhedonia, crying spells, decreased energy, low motivation, and difficulty concentrating. Client also reported anxiety with rumination regarding workplace conflict. Discharge Diagnoses:: Major depressive disorder recurrent severe F 33.2. Anxiety unspecified. ADHD by history Reason for Discharge:: Client has made significant progress on treatment goals and no longer meets the criteria for [facility] level of care. Client to step down to individual outpatient counseling services. - Treatment Progress During Treatment & Response: Since admission to the [facility] program, Client has demonstrated consistent progress with managing her mental health symptoms. She reports decreased symptoms of both depression and anxiety and has displayed an increased ability to regulate her emotions, especislly in times of personal relationship conflict. Client is displaying increased insight into warning signs and triggers for her depression associated with relationship loss and is successfully implementing and maintaining healthy boundaries at this time. She has improved use of healthy coping skills to prevent symptom escalation and is successfully refraining from using avoidance or isolation as her primary coping mechanism. Identified coping skills include challenging negative thoughts, allowing herself time to experience and process her emotions without reacting, as well as setting and consistently communicating boundaries. Client has successfully completed assigned tx goals and notes an ability to maintain baseline functioning. Plan is for Client to discharge from [facility] and follow-up with outpatient counseling with Jermaine Navarro at [facility]. Issues Still to be Addressed:: Client would continue to benefit from maintaining compliant with use of emotion regulation skills and small goal setting. She reports ongoing intermediate relationship tension with her mother andsupport person, Cam, and would do well to continue to work on applying open communication with her supports and asserting firm boundaries. Client additionally recommended to work on maintaining realistic expectations of self, challenging negative thoughts, and implementing a consistent structured routine. Client can also benefit from continuing to utilize healthy coping skills and recognizing warning signs. Discharge Recommendations/Instructions:: Client to follow up with outpatient counselling services through [facility] and is encourage so continue following break-up safety plan as well as consistently implemtent healthy boundaries. CLient will receive ongoing medication management through her Primary Care Provider. Discharge Handout: Complete Discharge Handout with client on aftercare options and continuity of care.
--- NOTE | 2018-05-26 09:32 | BH.DS_ITS ---
Discharge Summary - Demographics Date of Admission:: 03/29/18 Discharge Date: 05/11/18 Presenting Problems at Admission:: Patient is a 28-year-old female who presented to [facility] post inpatient psychiatric hospitalization at [facility] for depression with suicidal ideation following a recent breakup. At time of admission client endorsed a depressed mood with anhedonia, crying spells , decreased energy, low motivation, and difficulty concentrating. Client also reported anxiety with rumination regarding workplace conflict. Discharge Diagnoses:: Major depressive disorder recurrent severe F 33.2. Anxiety unspecified. ADHD by history Reason for Discharge:: Client has made significant progress on treatment goals and no longer meets the criteria for [facility] level of care. Client to step down to individual outpatient counseling services. - Treatment Progress During Treatment & Response: Since admission to the Behavioral Health [facility] program, Client has demonstrated consistent progress with managing her mental health symptoms. She reports decreased symptoms of both depression and anxiety and has displayed an increased ability to regulate her emotions, especislly in times of personal relationship conflict. Client is displaying increased insight into warning signs and triggers for her depression associated with relationship loss and is successfully implementing and maintaining healthy boundaries at this time. She has improved use of healthy coping skills to prevent symptom escalation and is successfully refraining from using avoidance or isolation as her primary coping mechanism. Identified coping skills include challenging negative thoughts, allowing herself time to experience and process her emotions without reacting, as well as setting and consistently communicating boundaries. Client has successfully completed assigned tx goals and notes an ability to maintain baseline functioning. Plan is for Client to discharge from [facility] and follow-up with outpatient counseling with Jermaine Navarro at [facility]. Issues Still to be Addressed:: Client would continue to benefit from maintaining compliant with use of emotion regulation skills and small goal setting. She reports ongoing intermediate relationship tension with her mother andsupport person, Cam, and would do well to continue to work on applying open communication with her supports and asserting firm boundaries. Client additionally recommended to work on maintaining realistic expectations of self, challenging negative thoughts, and implementing a consistent structured routine. Client can also benefit from continuing to utilize healthy coping skills and recognizing warning signs. Discharge Recommendations/Instructions:: Client to follow up with outpatient counselling services through [facility] and is encourage so continue following break-up safety plan as well as consistently implemtent healthy boundaries. CLient will receive ongoing medication management through her Primary Care Provider. Discharge Handout: Complete Discharge Handout with client on aftercare options and continuity of care.
== END 2018-05-30 23:59 ==
LOC: BHIOP 09:00
PROVIDERS: Family Provider Student in an Organized Health Care Education/Training Program; PCP Student in an Organized Health Care Education/Training Program; Visit Provider Psychiatry & Neurology Psychiatry
DX: F33.2 Major depressive disorder, recurrent severe without psychotic features (principal); F41.9 Anxiety disorder, unspecified; F90.9 Attention-deficit hyperactivity disorder, unspecified type
CPT/HCPCS: H0035; 90832; 90853

== ENCOUNTER 2018-10-15 22:49 | Emergency (ER) | payer BC, SELFPAY ==
[2018-10-15 22:50] VITALS: BP 120/78; PULSE 83; RESP 14; TEMP 36.3; O2SAT 98; BMI 21.6
--- NOTE | 2018-10-15 23:16 | EKG12_ITS ---
Test Reason : SIDE PAIN Blood Pressure : / mmHG Vent. Rate : 075 BPM Atrial Rate : 075 BPM P-R Int : 178 ms QRS Dur : 094 ms QT Int : 378 ms P-R-T Axes : 067 069 057 degrees QTc Int : 422 ms Normal sinus rhythm Normal ECG Confirmed by SHYANN JONES, JESS ([id number]), film and video editor SHAJI VILLA ([id number]) on 10/18/2018 3:09:50 PM Referred By: JAIDEN Confirmed By:JESS BOOTHE MD
--- NOTE | 2018-10-15 23:16 | RAD_ITS ---
STUDY: X-RAY CHEST REASON FOR EXAM: Female, 28 years old. Right-sided chest pain for one week, which was diagnosed by primary care provider as a muscle strain due to coughing. TECHNIQUE: Frontal and lateral views of the chest. COMPARISON: None. FINDINGS: The lungs are clear and expanded. There is no demonstrated pleural abnormality. Normal size heart. Normal mediastinum and yordan. Normal visualized pulmonary arteries. Normal visualized aortic arch and descending thoracic aorta. Normal visualized thoracic spine. Normal visualized ribs, clavicles, and shoulders. There is no demonstrated abnormality of the visualized soft tissue structures of the upper abdomen. RAD/Chest PA and Lateral IMPRESSION: Normal x-ray examination of the chest. Electronically Signed: Anthony Forte MD at 0:17 EST , Service support ,
[2018-10-15 23:19] VITALS: RESP 16
[2018-10-15 23:42] LABS: Absolute Lymphocyte Count 3.18 X10^3/ul (0.83-4.51); Absolute Neutrophil Count 5.1 X10^3/uL (2.0-7.7); Basophil# 0.02 X10^3/uL; Basophil% 0.2 % (0-1); Eosinophil# 0.24 X10^3/uL; Eosinophils% 2.5 % (0-5); Hematocrit 36.8 % (37-47); Hemoglobin 11.9 g/dl (12.0-15.0); Lymphocyte # 3.18 X10^3/ul (4.0); Lymphocyte % 33.5 % (19-41); Mean Corp Hgb Conc 32.3 g/gl (32-36); Mean Corpuscular Hgb 28.7 pg (27.0-32.0); Mean Corpuscular Volume 88.7 fL (81-99); Mean Platelet Vol. 9.2 fl (6.2-12.0); Monocyte# 0.93 X10^3/uL; Monocyte% 9.8 % (0-10); Neutrophil # 5.11 X10^3/uL (2.7-7.7); Neutrophil % 53.8 % (47-70); Platelet Count 328 K/mm3 (150-450); RBC Distribution Width CV 13.6 % (11.6-14.6); RBC Distribution Width SD 43.3 fl (35.1-43.9); Red Blood Count 4.15 M/mm3 (4.2-5.4); White Blood Count 9.5 K/mm3 (4.4-11.0)
[2018-10-15 23:43] LABS: POSITIVE COUNT NO; POSITIVE DIFFERENTIAL NO; POSITIVE MORPHOLOGY NO
[2018-10-15 23:50] LABS: D-Dimer Quantitative (DVT/PE) 0.33 FEU/ug/m (0.27-0.49)
[2018-10-15] MEDS: Ketorolac 30 MG/ML Syringe IV (23:50)
[2018-10-15 23:57] LABS: Anion Gap 7 (5-15); BUN 13 mg/dL (7-18); Calcium,Total 8.3 mg/dL (8.5-10.1); Chloride 109 mmol/L (98-107); Creatinine, Serum 0.59 mg/dL (0.55-1.02); EST Glomerular Filtration Rate 129 mL/min (>60); Est Glom Filt Rate - Afr Amer 156 mL/min (>60); Estimated Creatinine Clearance 128.88 ml/min; Glucose 95 mg/dL (74-106); Potassium 3.6 mmol/L (3.5-5.1); Sodium Level 141 mmol/L (136-145)
--- NOTE | 2018-10-16 00:28 | ED.DCSUM_ITS ---
- ER Visit Summary Date of Service: 10/16/18 Chief Complaint: Chest pain History of Present Illness: The patient is a 28 F who complains of chest pain. It began about a week ago. Preceding this she was ill for about 2 months with a URI-like illness with congestion rhinorrhea and cough. The symptoms are a ctually improving. She was seen at a walk-in clinic. She reportedly had a normal x-ray. She was started on prednisone. She has now completed this but continues to complain of ongoing pain across her right lower chest this is worse with movement or inspiration or palpation. No recent travel hospitalization recent surgery history of DVT or pulmonary embolism she has not a smoker. No known coagulopathies. Physical Examination: Afebrile vitals are normal Moist mucous membranes Heart regular rate and rhythm Lungs are clear She does have right chest wall tenderness Extremities nontender Test Results: EKG shows normal sinus rhythm at a rate of 75. Chest x-ray is normal. Labs are unremarkable with negative troponin and d-dimer. Emergency Department Course and Treatment: Patient was given IV Toradol for symptom. She is resting comfortably on reevaluation. Her workup as above is unremarkable. I suspect this is related to chest wall strain with her cough and possibly component of pleurisy as well. She recently completed steroids. She was given a prescription for naproxen for pain. She was advised on supportive care. She understands to return for new or worsening symptoms and she was discharged. Treatment Plan: [] Disposition: Discharge Impression: Chest wall pain This note was generated with [employer] dictation software. It may contain incorrect words, spelling, and punctuation that were not noted in review of the chart prior to signing ED Disposition - Plan for ED Patient: Chief Complaint: Chest Other Referrals: Marcelo Oconnell DO [Primary Care Provider] -
--- NOTE | 2018-10-16 00:28 | ED.DEP ---
ED Disposition - Plan for ED Patient: Chief Complaint: Chest Other Instructions: ED Strain Chest Wall Prescriptions: Naproxen [Naprosyn] 500 mg PO BID PRN PRN #20 tab PRN Reason: Pain Referrals: Marcelo Oconnell DO [Primary Care Provider] -
[2018-10-16 00:33] VITALS: RESP 16
--- OUTSIDE RECORDS SUMMARY | 2019-01-17 14:11 | XMS RPT_ITS ---
:1990 Author Organization OHIP Care Team Providers Name Role Phone MARCELO TRAN Attending Unavailable KATRINA REYNOSO (JEFRY) Referring Unavailable Anish, Marcelo Primary Care Unavailable Boston Lemus Attending Unavailable CRISTOBAL DAWN Attending Unavailable CRISTOBAL DAWN Referring Unavailable Marcelo Tran Primary Care Unavailable CRISTOBAL DAWN Attending Unavailable CRISTOBAL DAWN Referring Unavailable Marcelo Tran Primary Care Unavailable CRISTOBAL DAWN Attending Unavailable CRISTOBAL DAWN Referring Unavailable Anish, Marcelo Primary Care Unavailable CRISTOBAL DAWN Attending Unavailable CRISTOBAL DAWN Referring Unavailable Marcelo Tran Primary Care Unavailable PROBLEMS PROBLEMS DATE TYPE CONDITION / CODE ATTENDING STATUS SOURCE 10/09/2018 Active Cough / NA Active [facility] R05(ICD-10) Main [place] Repository 05/31/2018 Unknown 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 Rash spreading to bilateral forearms and bilateral shins. States was visiting a family member and was petting and playing with their 2 dogs that spend a lot of time outside in wooded areas. Rash is very itchy and looks just like poison karen rash shes had in past. Denies fever, chills, drainage, redness. Has not applied any OTC products. Review of Systems Constitutional: Negative for chills and fever. Skin: Positive for itching and rash. Objective Physical Exam Constitutional: She is oriented to person, place, and time and well-developed, well-nourished, and in no distress. No distress. Neurological: She is alert and oriented to person, place, and time. Skin: Skin is warm and dry. Rash noted. Rash is maculopapular and vesicular. She is not diaphoretic. Vesicular and maculopapular lesions in patches and scattered to areas noted. No signs of secondary infection noted. BP 96/70 Pulse (!) 56 Temp 36.5 ?C (97.7 ?F) (Left Tympanic) Resp 16 Wt 62.6 kg (138 lb) SpO2 99% BMI 22.62 kg/m? .Patient presents with: Rash: itches DARLEEN hands, arms AND legs x 2 days PAST MEDICAL HISTORY Diagnosis Date - ADD (attention deficit disorder) - ASCUS favor benign 12/2014 - Dysthymic disorder Depression (non-psychotic) - Nephrolithiasis - PMH - PAST MEDICAL HISTORY OF normal color vision - PMH - PAST MEDICAL HISTORY OF port wine stain - Unspecified asthma(493.90) Asthma EXERCISE INDUCED PAST SURGICAL HISTORY Procedure Laterality Date - PAST SURGICAL HISTORY OF 1995 laser surgery for port wine stain - SURG REMOVAL OF KIDNEY STONE, COMPLICATED 2010 ALLERGIES Environmental [Other] MEDICATIONS adapalene (DIFFERIN) 0.1 % gel Apply 1 application to affected area daily at bedtime. albuterol HFA (PROAIR HFA) 90 mcg/actuation inhaler Inhale 2 Puffs as instructed every 6 hours as needed. benzonatate (TESSALON PERLES) 100 mg capsule Take 2 capsules by mouth three times daily as needed. clindamycin (CLEOCIN-T) 1 % gel Apply 1 application to affected area twice daily. Sulfacetamide Sodium, Acne, 10 % susp Apply 1 application to affected area once daily. mometasone (ELOCON) 0.1 % cream Apply 1 application to affected area once daily as needed. predniSONE (DELTASONE) 10 mg tablet Take 4 tabs daily for 3 days, then 2 tabs daily for 3 days, then 1 tab daily for 3 days with food. FAMILY HISTORY Problem Relation Age of Onset - Thyroid Mother - other (fibromyalgia) Mother - Diabetes Maternal Grandmother - Stroke Maternal Grandfather - other (melanoma) Maternal Grandfather - Colon Cancer Maternal Uncle - Psychiatry Maternal Uncle MANIC DEPRESSION Social History Substance Use Topics - Smoking status: Never Smoker - Smokeless tobacco: Never Used - Alcohol use No ASSESSMENT/PLAN: 1. Contact dermatitis due to plants, except food, unspecified contact dermatitis type - ICD9: 692.6, ICD10: L25.5 - discussed skin care of rash - follow up if symptoms persist or worsen. - PREDNISONE 10 MG TABLET - MOMETASONE 0.1 % TOPICAL CREAM The patient is instructed to return or seek emergency treatment if symptoms become worse or with any acute change in condition. The patient verbalizes understanding and is in agreement with plan of care. Deepika Carver CNP CNOV Observed: 10/22/2018 Status: COMPLETED Source: [place] 11:45 AM [facility] REPOSITORY Office Visit (WSTR) KADIDYAN Ambika ([id number]) 1990 F Date Time Provider Department 10/22/18 11:45 AM ROBERTOLINDA ORDOÑEZTH [facility] During your visit today, we recorded the following information about you: Temperature Pulse Respiration Blood pressure 97.7 degrees 56/minute 16/minute 96/70 Weight 62.6 kg Deepika Carver APRN.VOICE NETWORK ADMINISTRATOR 10/22/2018 12:33 PM Signed Subjective HPI Pt presents with c/o itchy rash to bilateral hands x 3 days. Rash spreading to bilateral forearms and bilateral shins. States was visiting a family member and was petting and playing with their 2 dogs that spend a lot of time outside in wooded areas. Rash is very itchy and looks just like poison karen rash shes had in past. Denies fever, chills, drainage, redness. Has not applied any OTC products. Review of Systems Constitutional: Negative for chills and fever. Skin: Positive for itching and rash. Objective Physical Exam Constitutional: She is oriented to person, place, and time and well-developed, well-nourished, and in no distress. No distress. Neurological: She is alert and oriented to person, place, and time. Skin: Skin is warm and dry. Rash noted. Rash is maculopapular and vesicular. She is not diaphoretic. Vesicular and maculopapular lesions in patches and scattered to areas noted. No signs of secondary infection noted. BP 96/70 Pulse (!) 56 Temp 36.5 ?C (97.7 ?F) (Left Tympanic) Resp 16 Wt 62.6 kg (138 lb) SpO2 99% BMI 22.62 kg/m? .Patient presents with: Rash: itches DARLEEN hands, arms AND legs x 2 days PAST MEDICAL HISTORY Diagnosis Date - ADD (attention deficit disorder) - ASCUS favor benign 12/2014 - Dysthymic disorder Depression (non-psychotic) - Nephrolithiasis - PMH - PAST MEDICAL HISTORY OF normal color vision - PMH - PAST MEDICAL HISTORY OF port wine stain - Unspecified asthma(493.90) Asthma EXERCISE INDUCED PAST SURGICAL HISTORY Procedure Laterality Date - PAST SURGICAL HISTORY OF 1995 laser surgery for port wine stain - SURG REMOVAL OF KIDNEY STONE, COMPLICATED 2010 ALLERGIES Environmental [Other] MEDICATIONS adapalene (DIFFERIN) 0.1 % gel Apply 1 application to affected area daily at bedtime. albuterol HFA (PROAIR HFA) 90 mcg/actuation inhaler Inhale 2 Puffs as instructed every 6 hours as needed. benzonatate (TESSALON PERLES) 100 mg capsule Take 2 capsules by mouth three times daily as needed. clindamycin (CLEOCIN-T) 1 % gel Apply 1 application to affected area twice daily. Sulfacetamide Sodium, Acne, 10 % susp Apply 1 application to affected area once daily. mometasone (ELOCON) 0.1 % cream Apply 1 application to affected area once daily as needed. predniSONE (DELTASONE) 10 mg tablet Take 4 tabs daily for 3 days, then 2 tabs daily for 3 days, then 1 tab daily for 3 days with food. FAMILY HISTORY Problem Relation Age of Onset - Thyroid Mother - other (fibromyalgia) Mother - Diabetes Maternal Grandmother - Stroke Maternal Grandfather - other (melanoma) Maternal Grandfather - Colon Cancer Maternal Uncle - Psychiatry Maternal Uncle MANIC DEPRESSION Social History Substance Use Topics - Smoking status: Never Smoker - Smokeless tobacco: Never Used - Alcohol use No ASSESSMENT/PLAN: 1. Contact dermatitis due to plants, except food, unspecified contact dermatitis type - ICD9: 692.6, ICD10: L25.5 - discussed skin care of rash - follow up if symptoms persist or worsen. - PREDNISONE 10 MG TABLET - MOMETASONE 0.1 % TOPICAL CREAM The patient is instructed to return or seek emergency treatment if symptoms become worse or with any acute change in condition. The patient verbalizes understanding and is in agreement with plan of care. Deepika Carver CNP Referring Provider: SELF [[id number]] Allergies As of Date: 10/22/2018 Noted Allergy Reaction environmental [Other] 03/06/2001 Date Reviewed: 10/22/2018 Reviewed by: Phuong Poole Ma - Fully Assessed Reason for Visit: Rash [1087] Cmt: itches DARLEEN hands, arms AND legs x 2 days Primary Visit Diagnosis:Contact dermatitis due to plants, except food, unspecified contact dermatitis type [L25.5] Order(s):predniSONE (DELTASONE) 10 mg tabletTake 4 tabs daily for 3 days, then 2 tabs daily for 3 days, then 1 tab daily for 3 days with food.Disp: 21 tabletRfl: 0 mometasone (ELOCON) 0.1 % creamApply 1 application to affected area once daily as needed.Disp: 60 gRfl: 0 Prescriptions as of 10/22/2018 Sig: ADAPALENE 0.1 % TOPICAL GEL Apply 1 application to affect* ALBUTEROL SULFATE HFA 90 MCG/* Inhale 2 Puffs as instructed * BENZONATATE 100 MG CAPSULE Take 2 capsules by mouth thre* CLINDAMYCIN 1 % TOPICAL GEL Apply 1 application to affect* SULFACETAMIDE SODIUM (ACNE) 1* Apply 1 application to affect* MOMETASONE 0.1 % TOPICAL CREAM Apply 1 application to affect* PREDNISONE 10 MG TABLET Take 4 tabs daily for 3 days,* Problem List As Of Date 10/22/2018 Noted Resolved Supervision of Normal First [Z34.00] INVALID FOR* History of depression [Z86.59] INVALID FOR* Acne vulgaris [L70.0] INVALID FOR* Well adult exam [Z00.00] INVALID FOR* Prescriptions ordered this encounter Disp Refills Start End PREDNISONE 10 MG TABLET 21 t* 0 10/22/2018 10/31/2018 Sig: Take 4 tabs daily for 3 days, then 2 tabs daily for 3 days, then 1 tab daily for 3 days with food. MOMETASONE 0.1 % TOPICAL CREAM 60 g 0 10/22/2018 Route: TOPICAL Sig: Apply 1 application to affected area once daily as needed. Encounter Status:Closed by DEEPIKA CARVER CNP on 10/22/18 12 LEAD ELECTROCARDIOGRAM Observed: 10/18/2018 Status: F Source: [place] 3:10 PM [facility] REPOSITORY [facility] Cardiovascular Services [address] [place] [address] 12 Lead EKG 10/15/18 2185 MR#: [id number] Acct: [id number] Name: DYAN WALLIS Rep #: [id number] : 1990 28 From: Desmond Dockery MD Attending Dr: Status: DEP ER Ordering Dr: Boston Lemus MD Date: 10/15/18 Location: ED Sex: F C Admitted: Test Reason : SIDE PAIN Blood Pressure : / mmHG Vent. Rate : 075 BPM Atrial Rate : 075 BPM P-R Int : 178 ms QRS Dur : 094 ms QT Int : 378 ms P-R-T Axes : 067 069 057 degrees QTc Int : 422 ms Normal sinus rhythm Normal ECG Confirmed by DESMOND DOCKERY MD ([id number]), proposal editor SHAJI VILLA ([id number]) on 10/18/2018 3:09:50 PM Referred By: JAIDEN Confirmed By:DESMOND DOCKERY MD 10/18/18 1509 Date Desmond Dockery MD CC: Marcelo Pinedo DO; Boston Lemus MD Signed DISCHARGE INSTRUCTION Observed: 10/16/2018 Status: F Source: [place] 12:29 AM [facility] Medical Records Department [address] [place] [address] Discharge Instruction 10/16/188 MR#: [id number] Acct: [id number] Name: DYAN WALLIS Ambika Rep #: [id number] : 1990 28 From: Boston Lemus MD PCP: Marcelo Pinedo DO Status: REG ER ED Disposition - Plan for ED Patient: Chief Complaint: Chest Other Instructions: ED Strain Chest Wall Prescriptions: Naproxen [Naprosyn] 500 mg PO BID PRN PRN #20 tab PRN Reason: Pain Referrals: Marcelo Tran DO [Primary Care Provider] - What to do if you have Problems For any increased pain, shortness of breath, bleeding, nausea or vomiting, chest pain, or any unexpected problems, contact your Primary Care Provider. Call [facility] ([phone]) or report to the closest Emergency Room. Call 911 if necessary. 10/16/18 0029 <Electronically signed by Boston Lemus MD> Date Boston Lemus MD Cosigner Signature (If Indicated): Date CC: Marcelo Pinedo DO EMERGENCY DEPARTMENT Observed: 10/16/2018 Status: F Source: [place] SUMMARY 12:28 AM [facility] REPOSITORY [facility] Medical Records Department [address] [place] [address] Emergency Department Summary 10/16/18 0026 MR#: [id number] Acct: [id number] Name: DYAN WALLIS Rep #: [id number] : 1990 28 From: Boston Lemus MD PCP: Marcelo Pinedo DO Status: REG ER - ER Visit Summary Date of Service: 10/16/18 Chief Complaint: Chest pain History of Present Illness: The patient is a 28 F who complains of chest pain. It began about a week ago. Preceding this she was ill for about 2 months with a URI-like illness with congestion rhinorrhea and cough. The symptoms are actually improving. She was seen at a walk-in clinic. She reportedly had a normal x-ray. She was started on prednisone. She has now completed this but continues to complain of ongoing pain across her right lower chest this is worse with movement or inspiration or palpation. No recent travel hospitalization recent surgery history of DVT or pulmonary embolism she has not a smoker. No known coagulopathies. Physical Examination: Afebrile vitals are normal Moist mucous membranes Heart regular rate and rhythm Lungs are clear She does have right chest wall tenderness Extremities nontender Test Results: EKG shows normal sinus rhythm at a rate of 75. Chest x-ray is normal. Labs are unremarkable with negative troponin and d-dimer. Emergency Department Course and Treatment: Patient was given IV Toradol for symptom. She is resting comfortably on reevaluation. Her workup as above is unremarkable. I suspect this is related to chest wall strain with her cough and possibly component of pleurisy as well. She recently completed steroids. She was given a prescription for naproxen for pain. She was advised on supportive care. She understands to return for new or worsening symptoms and she was discharged. Treatment Plan: [] Disposition: Discharge Impression: Chest wall pain This note was generated with [employer] dictation software. It may contain incorrect words, spelling, and punctuation that were not noted in review of the chart prior to signing ED Disposition - Plan for ED Patient: Chief Complaint: Chest Other Referrals: Marcelo Tran, [Primary Care Provider] - What to do if you have Problems For any increased pain, shortness of breath, bleeding, nausea or vomiting, chest pain, or any unexpected problems, contact your Primary Care Provider. Call [facility] ([phone]) or report to the closest Emergency Room. Call 911 if necessary. 10/16/18 0028 <Electronically signed by Boston Lemus MD> Date Boston Lemus MD Cosigner Signature (If Indicated): Date CC: Marcelo Pinedo DO CBC W/DIFF, AUTOMATED Collected: 10/15/2018 Status: F Source: [place] 11:30 PM [facility] REPOSITORY TYPE CODE TESTS RESULT OUT OF RANGE REFERENCE UNITS LAB L100.1000 4.4-11.0 K/mm3 Normal WBC 9.5 LAB L100.1200 4.2-5.4 M/mm3 Low RBC 4.15 LAB L100.1300 12.0-15.0 g/dl Low HGB 11.9 LAB L100.1400 37-47 % Low HCT 36.8 LAB L100.1500 81-99 fL Normal MCV 88.7 LAB L100.1600 27.0-32.0 pg Normal MCH 28.7 LAB L100.1700 32-36 g/gl Normal MCHC 32.3 LAB L100.1810 11.6-14.6 % Normal RDW CV 13.6 LAB L100.1820 35.1-43.9 fl Normal RDW SD 43.3 LAB L100.1900 150-450 K/mm3 Normal PLT 328 LAB L100.2000 6.2-12.0 fl Normal MPV 9.2 LAB L100.2100 47-70 % Normal NEUT% 53.8 LAB L100.2200 19-41 % Normal LY% 33.5 LAB L100.2300 0-10 % Normal MONO% 9.8 LAB L100.2400 0-5 % Normal EO% 2.5 LAB L100.2500 0-1 % Normal BASO% 0.2 LAB L100.2550 0.0-0.9 % Normal IM GRAN % 0.200 Result Comment: IG% - Immature Granulocytes (promyelocytes, myelocytes and metamyelocytes) > 1% indicates that a LEFT SHIFT is Present. LAB L100.2620 2.0-7.7 X10 3/uL Normal Absolute Neut 5.1 LAB L100.2720 0.83-4.51 X10 3/ul Normal Absolute Lymph 3.18 Performed By: #### L100.0100 #### [facility] [address] [place], [place], [address] D-DIMER QUANTITATIVE Collected: 10/15/2018 Status: F Source: [place] (DVT/PE) 11:30 PM [facility] REPOSITORY TYPE CODE TESTS RESULT OUT OF RANGE REFERENCE UNITS LAB L300.8000 0.27-0.49 FEU/ug/m Normal D-DIMER 0.33 QUANT Result Comment: NORMAL D-Dimer level (<0.50) indicates no DVT or PE. Performed By: #### L300.8000 #### [facility] [address] [place], [place], [address] BASIC METABOLIC Collected: 10/15/2018 Status: F Source: [place] PROFILE (BMP) 11:30 PM [facility] REPOSITORY TYPE CODE TESTS RESULT OUT OF RANGE REFERENCE UNITS LAB L501.0100 74-106 mg/dL Normal GLU 95 Result Comment: Please note revised GLUCOSE reference range effective 2017. LAB L501.1000 7-18 mg/dL Normal BUN 13 LAB L501.1100 0.55-1.02 mg/dL Normal CREAT,SERUM 0.59 Result Comment: The validity of the calculated GFR AND GFRAA in patients over 70 years has not been determined. Clinical correlation is essential. LAB L501.1110 >60 mL/min Normal EST GFR 129 Result Comment: Non- GFR Calc LAB L501.1115 >60 mL/min Normal EST GFR - AA 156 Result Comment: GFR Calc LAB L501.1255 ml/min Normal Estimated CRCL 128.88 LAB L501.1300 10-20 RATIO High BUN/CRE 22.0 LAB L501.2200 8.5-10 mg/dL Low .1 CA 8.3 LAB L501.5300 136-14 mmol/L 5 NA Normal 141 LAB L501.5600 3.5-5. mmol/L 1 K Normal 3.6 LAB L501.5900 98-107 mmol/L High CL 109 LAB L501.6100 21.0-3 mmol/L 2.0 CO2 Normal 25.0 LAB L501.6200 5-15 GAP Normal 7 Performed By: #### L500.2500, L501.4010 #### [facility] [address] [place], [place], [address] TROPONIN-I Collected: 10/15/2018 Status: F Source: [place] 11:30 PM [facility] REPOSITORY TYPE CODE TESTS RESULT OUT OF RANGE REFERENCE UNITS LAB L501.4010 <0.045 ng/mL Normal < 0.015 TROPONIN-I Result Comment: TROPONIN-I EXPECTED VALUES <0.045 Negative 0.045 - 0.590 Consistent with Cardiac Damage > OR = 0.600 Critical Value Not every elevated troponin is indicative of AZ. These values should be used with clinical judgement in examining the patient's clinical picture for diagnosis. To establish a diagnosis of AZ versus myocardial injury, there must be a demonstrated rise and/or fall in the troponin values, in addition to ischemic symptoms, EKG changes, new regional wall motion abnormality, and/or angiographical evidence. PLEASE NOTE: REFERENCE RANGES EDITED 18 Performed By: #### L500.2500, L501.4010 #### [facility] [address] [place], [place], [address] CHEST PA AND LATERAL Observed: 10/15/2018 Status: F Source: [place] 11:18 PM [facility] REPOSITORY [facility] Imaging Services [address] [place] [address] Chest PA and Lateral MR#: [id number] Acct: [id number] Name: DYAN WALLIS Rep #: [id number] : 1990 F 28 From: Anthony Forte MD PCP: Marcelo Pinedo DO Status: REG ER Study: Chest PA and Lateral Date of Exam: 10/15/18 Exam# [id number] Ordering Dr: Boston Lemus MD STUDY: X-RAY CHEST REASON FOR EXAM: Female, 28 years old. Right-sided chest pain for one week, which was diagnosed by primary care provider as a muscle strain due to coughing. TECHNIQUE: Frontal and lateral views of the chest. COMPARISON: None. FINDINGS: The lungs are clear and expanded. There is no demonstrated pleural abnormality. Normal size heart. Normal mediastinum and yordan. Normal visualized pulmonary arteries. Normal visualized aortic arch and descending thoracic aorta. Normal visualized thoracic spine. Normal visualized ribs, clavicles, and shoulders. There is no demonstrated abnormality of the visualized soft tissue structures of the upper abdomen. RAD/Chest PA and Lateral IMPRESSION: Normal x-ray examination of the chest. Electronically Signed: Anthony Forte MD at 0:17 EST , Service support , CC: Marcelo Pinedo DO; Boston Lemus MD Clinical Psychology Teacher: Signed PROGRESS Observed: 10/09/2018 Status: COMPLETED Source: [place] 4:28 PM [facility] REPOSITORY HNO ID: [id number] Author: Katrina Reynoso (Pa) Service: (none) Author Type: Physician Business Law Instructor Type: Progress Notes Filed: 10/09/2018 4:33 PM Note Text: Subjective HPI Patient presents a chief complaint of cough off and on for a couple of months. She states she had caught a cold and gotten better for a few days and then feels like she had caught another one. She does have asthma. She does not currently have an inhaler. She notices when she coughs her right side is painful. This has happened in the past a couple of years ago. She denies any shortness of breath. No fevers or chills. She did have some nasal congestion off and on as well but denies any facial pain or pressure. No sore throat or ear pain. Review of Systems Constitutional: Negative. HENT: Positive for congestion. Negative for ear pain, sinus pain and sore throat. Eyes: Negative. Respiratory: Positive for cough. Negative for hemoptysis, sputum production, shortness of breath and wheezing. Cardiovascular: Negative. Right rib pain Gastrointestinal: Negative. Genitourinary: Negative. Skin: Negative. All other systems reviewed and are negative. PAST MEDICAL HISTORY Diagnosis Date - ADD (attention deficit disorder) - ASCUS favor benign 12/2014 - Dysthymic disorder Depression (non-psychotic) - Nephrolithiasis - PMH - PAST MEDICAL HISTORY OF normal color vision - PMH - PAST MEDICAL HISTORY OF port wine stain - Unspecified asthma(493.90) Asthma EXERCISE INDUCED Current Outpatient Prescriptions: clindamycin (CLEOCIN-T) 1 % gel Apply 1 application to affected area twice daily. Disp: 30 g Rfl: 3 Sulfacetamide Sodium, Acne, 10 % susp Apply 1 application to affected area once daily. Disp: 1 Bottle Rfl: 11 adapalene (DIFFERIN) 0.1 % gel Apply 1 application to affected area daily at bedtime. Disp: 60 g Rfl: 1 predniSONE (DELTASONE) 20 mg tablet Take 2 tablets by mouth once daily for 5 days. Disp: 10 tablet Rfl: 0 benzonatate (TESSALON PERLES) 100 mg capsule Take 2 capsules by mouth three times daily as needed. Disp: 30 capsule Rfl: 0 albuterol HFA (PROAIR HFA) 90 mcg/actuation inhaler Inhale 2 Puffs as instructed every 6 hours as needed. Disp: 1 Inhaler Rfl: 0 No current facility-administered medications for this visit. PAST SURGICAL HISTORY Procedure Laterality Date - PAST SURGICAL HISTORY OF 1995 laser surgery for port wine stain - SURG REMOVAL OF KIDNEY STONE, COMPLICATED 2010 FAMILY HISTORY Problem Relation Age of Onset - Thyroid Mother - other (fibromyalgia) Mother - Diabetes Maternal Grandmother - Stroke Maternal Grandfather - other (melanoma) Maternal Grandfather - Colon Cancer Maternal Uncle - Psychiatry Maternal Uncle MANIC DEPRESSION Social History Substance Use Topics - Smoking status: Never Smoker - Smokeless tobacco: Never Used - Alcohol use No BP 102/64 Pulse 90 Temp 36.7 ?C (98 ?F) (Tympanic) Resp 16 Wt 63.7 kg (140 lb 6.4 oz) SpO2 98% BMI 23.01 kg/m? Objective Physical Exam Constitutional: She is oriented to person, place, and time and well-developed, well-nourished, and in no distress. HENT: Head: Normocephalic and atraumatic. Right Ear: Tympanic membrane, external ear and ear canal normal. Left Ear: Tympanic membrane, external ear and ear canal normal. Nose: Rhinorrhea present. Right sinus exhibits no maxillary sinus tenderness and no frontal sinus tenderness. Left sinus exhibits no maxillary sinus tenderness and no frontal sinus tenderness. Mouth/Throat: Uvula is midline, oropharynx is clear and moist and mucous membranes are normal. Neck: Normal range of motion. Neck supple. Cardiovascular: Normal rate, regular rhythm and normal heart sounds. Pulmonary/Chest: Effort normal and breath sounds normal. Right anterior lateral rib pain on palpation. No rash. Lungs clear Neurological: She is alert and oriented to person, place, and time. Skin: Skin is warm and dry. Psychiatric: Affect and judgment normal. Nursing note and vitals reviewed. ASSESSMENT/PLAN: 1. Cough - ICD9: 786.2, ICD10: R05 (primary diagnosis) - XR CHEST 2V FRONTAL/LAT 2. Bronchitis - ICD9: 490, ICD10: J40 Chest x-ray here negative. Lately asthmatic bronchitis. We will treat her with prednisone, Tessalon, and given an albuterol inhaler. I feel her chest pain is chest wall pain secondary to cough. No sign of PE. Very reproducible. Discussed with or concerning symptoms or to the ER otherwise follow-up with PCP. She is agreeable to this. Also discussed with her not taking any NSAIDs while on the prednisone. aKtrina Reynoso PA-C XR CHEST 2V FRONTAL/LAT Observed: 10/09/2018 Status: F Source: [place] 3:55 PM [facility] REPOSITORY * * *Final Report* * * DATE OF EXAM: Oct 09 2018 3:55PM WOX [id number] - XR CHEST 2V FRONTAL/LAT / PROCEDURE REASON: Cough * * * * Physician Interpretation * * * * EXAMINATION: CHEST RADIOGRAPH (2 VIEW FRONTAL and LATERAL) Clinical History: Cough M: XC2_4 Comparison: None RESULT: Lines, tubes, and devices: None. Lungs and pleura: No consolidation. No pulmonary edema. No pleural effusion or pneumothorax. Cardiomediastinal silhouette: Normal size and contour. Other: Bones are intact. IMPRESSION: No acute findings. Clinical Psychology Teacher: PSCB Transcribe Date/Time: Oct 09 2018 3:59P Dictated by : CHECO MUÑOZ MD This examination was interpreted and the report reviewed and electronically signed by: CHECO MUÑOZ MD on Oct 09 2018 3:59PM EST [id number] PROGRESS Observed: 10/09/2018 Status: COMPLETED Source: [place] 3:47 PM [facility] HNO ID: [id number] Author: Ailyn Mcdonald (Rt) Eveline Matthew Service: (none) Author Type: Membership Sales Manager Type: Progress Notes Filed: 10/09/2018 3:55 PM Note Text: Radiology Service Progress Note PATIENT NAME: Dyan Wallis DATE OF SERVICE: October 09, 2018 TIME: 3:47 PM PATIENT IDENTITY VERIFICATION COMPLETED USING TWO (2) METHODS: Patient confirmed name verbally and Date of . PATIENT GENDER DATA: Female. status: : No status: NO. PATIENT RELEVANT IMPLANT DATA REVIEWED: Not Applicable RADIOLOGY DEPARTMENT: General X-ray: Exam(s) Completed: Chest X-Ray PERIPHERAL IV DATA: Not applicable SIGNED BY: RT Naz October 09, 2018 3:47 PM CNOV Observed: 10/09/2018 Status: COMPLETED Source: [place] 3:30 PM [facility] REPOSITORY Office Visit (WSTR) DYAN WALLIS ([id number]) 1990 F Date Time Provider Department 10/09/18 3:30 PM KATRINA REYNOSO) WSTR During your visit today, we recorded the following information about you: Temperature Pulse Respiration Blood pressure 98 degrees 90/minute 16/minute 102/64 Weight 63.7 kg Katrina Reynoso PA-C 10/09/2018 4:33 PM Signed Subjective HPI Patient presents a chief complaint of cough off and on for a couple of months. She states she had caught a cold and gotten better for a few days and then feels like she had caught another one. She does have asthma. She does not currently have an inhaler. She notices when she coughs her right side is painful. This has happened in the past a couple of years ago. She denies any shortness of breath. No fevers or chills. She did have some nasal congestion off and on as well but denies any facial pain or pressure. No sore throat or ear pain. Review of Systems Constitutional: Negative. HENT: Positive for congestion. Negative for ear pain, sinus pain and sore throat. Eyes: Negative. Respiratory: Positive for cough. Negative for hemoptysis, sputum production, shortness of breath and wheezing. Cardiovascular: Negative. Right rib pain Gastrointestinal: Negative. Genitourinary: Negative. Skin: Negative. All other systems reviewed and are negative. PAST MEDICAL HISTORY Diagnosis Date - ADD (attention deficit disorder) - ASCUS favor benign 12/2014 - Dysthymic disorder Depression (non-psychotic) - Nephrolithiasis - PMH - PAST MEDICAL HISTORY OF normal color vision - PMH - PAST MEDICAL HISTORY OF port wine stain - Unspecified asthma(493.90) Asthma EXERCISE INDUCED Current Outpatient Prescriptions: clindamycin (CLEOCIN-T) 1 % gel Apply 1 application to affected area twice daily. Disp: 30 g Rfl: 3 Sulfacetamide Sodium, Acne, 10 % susp Apply 1 application to affected area once daily. Disp: 1 Bottle Rfl: 11 adapalene (DIFFERIN) 0.1 % gel Apply 1 application to affected area daily at bedtime. Disp: 60 g Rfl: 1 predniSONE (DELTASONE) 20 mg tablet Take 2 tablets by mouth once daily for 5 days. Disp: 10 tablet Rfl: 0 benzonatate (TESSALON PERLES) 100 mg capsule Take 2 capsules by mouth three times daily as needed. Disp: 30 capsule Rfl: 0 albuterol HFA (PROAIR HFA) 90 mcg/actuation inhaler Inhale 2 Puffs as instructed every 6 hours as needed. Disp: 1 Inhaler Rfl: 0 No current facility-administered medications for this visit. PAST SURGICAL HISTORY Procedure Laterality Date - PAST SURGICAL HISTORY OF 1995 laser surgery for port wine stain - SURG REMOVAL OF KIDNEY STONE, COMPLICATED 2010 FAMILY HISTORY Problem Relation Age of Onset - Thyroid Mother - other (fibromyalgia) Mother - Diabetes Maternal Grandmother - Stroke Maternal Grandfather - other (melanoma) Maternal Grandfather - Colon Cancer Maternal Uncle - Psychiatry Maternal Uncle MANIC DEPRESSION Social History Substance Use Topics - Smoking status: Never Smoker - Smokeless tobacco: Never Used - Alcohol use No BP 102/64 Pulse 90 Temp 36.7 ?C (98 ?F) (Tympanic) Resp 16 Wt 63.7 kg (140 lb 6.4 oz) SpO2 98% BMI 23.01 kg/m? Objective Physical Exam Constitutional: She is oriented to person, place, and time and well-developed, well-nourished, and in no distress. HENT: Head: Normocephalic and atraumatic. Right Ear: Tympanic membrane, external ear and ear canal normal. Left Ear: Tympanic membrane, external ear and ear canal normal. Nose: Rhinorrhea present. Right sinus exhibits no maxillary sinus tenderness and no frontal sinus tenderness. Left sinus exhibits no maxillary sinus tenderness and no frontal sinus tenderness. Mouth/Throat: Uvula is midline, oropharynx is clear and moist and mucous membranes are normal. Neck: Normal range of motion. Neck supple. Cardiovascular: Normal rate, regular rhythm and normal heart sounds. Pulmonary/Chest: Effort normal and breath sounds normal. Right anterior lateral rib pain on palpation. No rash. Lungs clear Neurological: She is alert and oriented to person, place, and time. Skin: Skin is warm and dry. Psychiatric: Affect and judgment normal. Nursing note and vitals reviewed. ASSESSMENT/PLAN: 1. Cough - ICD9: 786.2, ICD10: R05 (primary diagnosis) - XR CHEST 2V FRONTAL/LAT 2. Bronchitis - ICD9: 490, ICD10: J40 Chest x-ray here negative. Lately asthmatic bronchitis. We will treat her with prednisone, Tessalon, and given an albuterol inhaler. I feel her chest pain is chest wall pain secondary to cough. No sign of PE. Very reproducible. Discussed with or concerning symptoms or to the ER otherwise follow-up with PCP. She is agreeable to this. Also discussed with her not taking any NSAIDs while on the prednisone. Katrina Reynoso PA-C Referring Provider: SELF [200] Allergies As of Date: 10/09/2018 Noted Allergy Reaction environmental [Other] 03/06/2001 Date Reviewed: 10/09/2018 Reviewed by: Lexie Mondragon LPN - Fully Assessed Reason for Visit: cough, sinus drainage and right sided pain with cough [Other] Cmt: off and on x 2 months Primary Visit Diagnosis:Cough [R05] Other Visit Diagnosis:Bronchitis [J40] Order(s):XR CHEST 2V FRONTAL/LAT [7190226] Order #: [id number] FUTURE predniSONE (DELTASONE) 20 mg tabletTake 2 tablets by mouth once daily for 5 days.Disp: 10 tabletRfl: 0 benzonatate (TESSALON PERLES) 100 mg capsuleTake 2 capsules by mouth three times daily as needed.Disp: 30 capsuleRfl: 0 albuterol HFA (PROAIR HFA) 90 mcg/actuation inhalerInhale 2 Puffs as instructed every 6 hours as needed.Disp: 1 InhalerRfl: 0 Prescriptions as of 10/09/2018 Sig: CLINDAMYCIN 1 % TOPICAL GEL Apply 1 application to affect* SULFACETAMIDE SODIUM (ACNE) 1* Apply 1 application to affect* ADAPALENE 0.1 % TOPICAL GEL Apply 1 application to affect* PREDNISONE 20 MG TABLET Take 2 tablets by mouth once * BENZONATATE 100 MG CAPSULE Take 2 capsules by mouth thre* ALBUTEROL SULFATE HFA 90 MCG/* Inhale 2 Puffs as instructed * Problem List As Of Date 10/09/2018 Noted Resolved Supervision of Normal First [Z34.00] INVALID FOR* History of depression [Z86.59] INVALID FOR* Acne vulgaris [L70.0] INVALID FOR* Well adult exam [Z00.00] INVALID FOR* Prescriptions ordered this encounter Disp Refills Start End PREDNISONE 20 MG TABLET 10 t* 0 10/09/2018 10/14/2018 Route: ORAL Sig: Take 2 tablets by mouth once daily for 5 days. BENZONATATE 100 MG CAPSULE 30 c* 0 10/09/2018 Route: ORAL Sig: Take 2 capsules by mouth three times daily as needed. ALBUTEROL SULFATE HFA 90 MCG/ACTUATI* 1 In* 0 10/09/2018 Route: INHALATION Sig: Inhale 2 Puffs as instructed every 6 hours as needed. Encounter Status:Closed by KATRINA REYNOSO PA-C on 10/09/18 PROGRESS Observed: 08/28/2018 Status: COMPLETED Source: [place] 4:18 PM [facility] REPOSITORY HNO ID: [id number] Author: Marcelo Tran Service: (none) Author Type: Physician Type: Progress Notes Filed: 08/28/2018 4:21 PM Note Text: CC: Dyan Wallis is a 28 year old female who presents to the office for physical HPI: Overall doing well. Acne, facial, use of cleocin but still having flare ups, asking for other options Struggled with severe depression and suicidal thoughts over the last 2 years, had 2-3 admissions to [facility] and cared for by Psychiatrist Dr. Luciano. Also was in counseling. Didn't do well with many of the serotonin based antidepressants due to nausea and vomiting, doesn't remember all the medications attempted. Feeling stable now with mood, not on any medications, not going to counseling currently. Has helped to change shifts from 3rd to [address] [facility]. PAST MEDICAL HISTORY Diagnosis Date - ADD (attention deficit disorder) - ASCUS favor benign 12/2014 - Dysthymic disorder Depression (non-psychotic) - Nephrolithiasis - PMH - PAST MEDICAL HISTORY OF normal color vision - PMH - PAST MEDICAL HISTORY OF port wine stain - Unspecified asthma(493.90) Asthma EXERCISE INDUCED PAST SURGICAL HISTORY Procedure Laterality Date - PAST SURGICAL HISTORY OF 1995 laser surgery for port wine stain - SURG REMOVAL OF KIDNEY STONE, COMPLICATED 2010 Social History: Social History Substance Use Topics - Smoking status: Never Smoker - Smokeless tobacco: Never Used - Alcohol use No FAMILY HISTORY Problem Relation Age of Onset - Thyroid Mother - other (fibromyalgia) Mother - Diabetes Maternal Grandmother - Stroke Maternal Grandfather - other (melanoma) Maternal Grandfather - Colon Cancer Maternal Uncle - Psychiatry Maternal Uncle MANIC DEPRESSION Current Outpatient prescriptions: clindamycin (CLEOCIN-T) 1 % gel Apply 1 application to affected area twice daily. Sulfacetamide Sodium, Acne, 10 % susp Apply 1 application to affected area once daily. adapalene (DIFFERIN) 0.1 % gel Apply 1 application to affected area daily at bedtime. Allergies: ALLERGIES Allergen Reactions - Environmental [Othe* ROS: See HPI PE: 08/28/18 1540 BP: 100/70 Pulse: 80 Resp: 12 Temp: 36.8 ?C (98.3 ?F) TempSrc: Right Tympanic Weight: 62.6 kg (138 lb) Height: 166.4 cm (5' 5.5) Gen: AANDO, NAD, non-toxic appearing, Pleasant, cooperative HEENT: NT/AC, PERRLA, EOMs intact b/l, nares clear and patent b/l, pharynx without erythema, exudate or lesions. Uvula midline. EACs without erythema or debris. TMs pearly white with intact landmarks b/l. Neck: supple, No cervical LAD, no thyromegaly, no carotid bruits CV: RRR, normal S1 and S2, no murmurs, no gallops, no rubs, Pulses 2+ and symmetric in UE and LE b/l Lungs: normal respiratory effort, CTA b/l, no wheezing or rhonchi or rales Abd: soft, NT, ND, +BS, no hepatosplenomegaly MS: FROM all 4 extremities Neuro: CN II-XII intact b/l, strength 5/5 b/l UE and LE, DTRs 2/4 UE and LE, sensation intact. Skin: warm, dry, intact, several piercings and tattoos, facial acne inflammatory comedones present ASSESSMENT/PLAN: 1. Well adult exam - ICD9: V70.0, ICD10: Z00.00 (primary diagnosis) - Encouraged monthly Breast Self Exam - Recommended calcium intake with supplements or by diet (goal of 9946-3750 mg/day - Recommended regular aerobic exercise. - Follow up for annual exam in one year. - TSH BLD - T4 FREE/FREE THYROX - T3 BLD - CBC - COMP METABOLIC PANEL - LIPID PANEL BASIC 2. Acne vulgaris - ICD9: 706.1, ICD10: L70.0 - rx as below - CLINDAMYCIN 1 % TOPICAL GEL - SULFACETAMIDE SODIUM (ACNE) 10 % LOTION (SUSPENSION) - ADAPALENE 0.1 % TOPICAL GEL 3. History of depression - ICD9: V11.8, ICD10: Z86.59 - stable currently, start on supplements Marcelo Tran, DO To ER if develops chest pain, shortness of breath, or severe worsening of symptoms. Discussed risks, benefits, alternatives, and potential side effects of medications. Patient expressed understanding and agreed with the plan. Marcelo Tran DO [address] [place] [address] SUSANNE Observed: 08/28/2018 Status: COMPLETED Source: [place] 3:40 PM [facility] REPOSITORY Office Visit (FAMPWS) DYAN WALLIS ([id number]) 1990 F Date Time Provider Department 08/28/18 3:40 PM [facility] During your visit today, we recorded the following information about you: Temperature Pulse Respiration Blood pressure 98.3 degrees 80/minute 12/minute 100/70 Weight Height Last Period 62.6 kg 1.664 m 08/08/18 Marcelo Tran DO 08/28/2018 4:06 PM Signed Vitamin D3 2,000 IU once a day (take with a meal, any meal is okay) Vitamin B complex with breakfast/snack in the morning Light therapy- 10,000 LUX strength light box, IQ Eng[employer], 20 minutes in the morning for seasonal affective mood changes in fall/winter, usually use Jul through December Marcelo Tran DO 08/28/2018 4:21 PM Signed CC: Dyan Wallis is a 28 year old female who presents to the office for physical HPI: Overall doing well. Acne, facial, use of cleocin but still having flare ups, asking for other options Struggled with severe depression and suicidal thoughts over the last 2 years, had 2-3 admissions to [facility] and cared for by Psychiatrist Dr. Luciano. Also was in counseling. Didn't do well with many of the serotonin based antidepressants due to nausea and vomiting, doesn't remember all the medications attempted. Feeling stable now with mood, not on any medications, not going to counseling currently. Has helped to change shifts from to at [facility]. PAST MEDICAL HISTORY Diagnosis Date - ADD (attention deficit disorder) - ASCUS favor benign 12/2014 - Dysthymic disorder Depression (non-psychotic) - Nephrolithiasis - PMH - PAST MEDICAL HISTORY OF normal color vision - PMH - PAST MEDICAL HISTORY OF port wine stain - Unspecified asthma(493.90) Asthma EXERCISE INDUCED PAST SURGICAL HISTORY Procedure Laterality Date - PAST SURGICAL HISTORY OF 1995 laser surgery for port wine stain - SURG REMOVAL OF KIDNEY STONE, COMPLICATED 2010 Social History: Social History Substance Use Topics - Smoking status: Never Smoker - Smokeless tobacco: Never Used - Alcohol use No FAMILY HISTORY Problem Relation Age of Onset - Thyroid Mother - other (fibromyalgia) Mother - Diabetes Maternal Grandmother - Stroke Maternal Grandfather - other (melanoma) Maternal Grandfather - Colon Cancer Maternal Uncle - Psychiatry Maternal Uncle MANIC DEPRESSION Current Outpatient prescriptions: clindamycin (CLEOCIN-T) 1 % gel Apply 1 application to affected area twice daily. Sulfacetamide Sodium, Acne, 10 % susp Apply 1 application to affected area once daily. adapalene (DIFFERIN) 0.1 % gel Apply 1 application to affected area daily at bedtime. Allergies: ALLERGIES Allergen Reactions - Environmental [Othe* ROS: See HPI PE: 08/28/18 1540 BP: 100/70 Pulse: 80 Resp: 12 Temp: 36.8 ?C (98.3 ?F) TempSrc: Right Tympanic Weight: 62.6 kg (138 lb) Height: 166.4 cm (5' 5.5) Gen: AANDO, NAD, non-toxic appearing, Pleasant, cooperative HEENT: NT/AC, PERRLA, EOMs intact b/l, nares clear and patent b/l, pharynx without erythema, exudate or lesions. Uvula midline. EACs without erythema or debris. TMs pearly white with intact landmarks b/l. Neck: supple, No cervical LAD, no thyromegaly, no carotid bruits CV: RRR, normal S1 and S2, no murmurs, no gallops, no rubs, Pulses 2+ and symmetric in UE and LE b/l Lungs: normal respiratory effort, CTA b/l, no wheezing or rhonchi or rales Abd: soft, NT, ND, +BS, no hepatosplenomegaly MS: FROM all 4 extremities Neuro: CN II-XII intact b/l, strength 5/5 b/l UE and LE, DTRs 2/4 UE and LE, sensation intact. Skin: warm, dry, intact, several piercings and tattoos, facial acne inflammatory comedones present ASSESSMENT/PLAN: 1. Well adult exam - ICD9: V70.0, ICD10: Z00.00 (primary diagnosis) - Encouraged monthly Breast Self Exam - Recommended calcium intake with supplements or by diet (goal of 2835-8185 mg/day - Recommended regular aerobic exercise. - Follow up for annual exam in one year. - TSH BLD - T4 FREE/FREE THYROX - T3 BLD - CBC - COMP METABOLIC PANEL - LIPID PANEL BASIC 2. Acne vulgaris - ICD9: 706.1, ICD10: L70.0 - rx as below - CLINDAMYCIN 1 % TOPICAL GEL - SULFACETAMIDE SODIUM (ACNE) 10 % LOTION (SUSPENSION) - ADAPALENE 0.1 % TOPICAL GEL 3. History of depression - ICD9: V11.8, ICD10: Z86.59 - stable currently, start on supplements Marcelo Tran DO To ER if develops chest pain, shortness of breath, or severe worsening of symptoms. Discussed risks, benefits, alternatives, and potential side effects of medications. Patient expressed understanding and agreed with the plan. Marcelo Tran DO [address] [place] [address] Referring Provider: SELF [200] Allergies As of Date: 08/28/2018 Noted Allergy Reaction environmental [Other] 03/06/2001 Date Reviewed: 08/28/2018 Reviewed by: Marcelo Tran - Fully Assessed Reason for Visit: Physical [83] Primary Visit Diagnosis:Well adult exam [Z00.00] Other Visit Diagnoses:Acne vulgaris [L70.0] History of depression [Z86.59] Order(s):clindamycin (CLEOCIN-T) 1 % gelApply 1 application to affected area twice daily.Disp: 30 gRfl: 3 TSH BLD [SQTSH] Order #: [id number] FUTURE T4 FREE/FREE THYROX [SQFT4] Order #: [id number] FUTURE T3 BLD [SQT3] Order #: [id number] FUTURE Sulfacetamide Sodium, Acne, 10 % suspApply 1 application to affected area once daily.Disp: 1 BottleRfl: 11 adapalene (DIFFERIN) 0.1 % gelApply 1 application to affected area daily at bedtime.Disp: 60 gRfl: 1 CBC [SQCBC] Order #: [id number] FUTURE COMP METABOLIC PANEL [SQCMP] Order #: [id number] FUTURE LIPID PANEL BASIC [SQLIPB] Order #: [id number] FUTURE Prescriptions as of 08/28/2018 Sig: CLINDAMYCIN 1 % TOPICAL GEL Apply 1 application to affect* SULFACETAMIDE SODIUM (ACNE) 1* Apply 1 application to affect* ADAPALENE 0.1 % TOPICAL GEL Apply 1 application to affect* Medication notes this encounter ESCITALOPRAM 10 MG TABLET >> Sarahy Dotson LPN 08/28/2018 3:43 PM >> SARAHY DOTSON LPN Mon Aug 28, 2018 3:43 PM Finished Problem List As Of Date 08/28/2018 Noted Resolved Supervision of Normal First [Z34.00] INVALID FOR* History of depression [Z86.59] INVALID FOR* Acne vulgaris [L70.0] INVALID FOR* Well adult exam [Z00.00] INVALID FOR* Other instructions from your clinician: Vitamin D3 2,000 IU once a day (take with a meal, any meal is okay) Vitamin B complex with breakfast/snack in the morning Light therapy- 10,000 LUX strength light box, IQ Engines, 20 minutes in the morning for seasonal affective mood changes in fall/winter, usually use Jul through December Prescriptions ordered this encounter Disp Refills Start End CLINDAMYCIN 1 % TOPICAL GEL 30 g 3 08/28/2018 Route: TOPICAL Sig: Apply 1 application to affected area twice daily. SULFACETAMIDE SODIUM (ACNE) 10 % LOT* 1 Eloy* 11 08/28/2018 Route: TOPICAL Sig: Apply 1 application to affected area once daily. ADAPALENE 0.1 % TOPICAL GEL 60 g 1 08/28/2018 Route: TOPICAL Sig: Apply 1 application to affected area daily at bedtime. Medications Discontinued During This Encounter escitalopram oxalate (LEXAPRO) 10 mg* 30 t* 0 02/07/2017 08/28/2018 Route: ORAL Sig: Take 1 tablet by mouth once daily. Disc: Reason for discontinue is not on file. clindamycin (CLEOCIN-T) 1 % gel 30 g 3 06/15/2016 08/28/2018 Route: TOPICAL Sig: Apply 1 application to affected area twice daily. Disc: Reason for discontinue is not on file. Encounter Status:Closed by MARCELO TRAN DO on 08/28/18 ALLERGIES ALLERGIES DATE TYPE / CODE NAME / CODE REACTION SEVERITY SOURCE 10/15/2018 Drug No Known Unknown Cherise Allergy/824683243(S Allergies/F [facility] NOMED CT) [id number]( Hospital XNORM) Repository 03/06/2001 Miscellaneous OTHER [facility] Allergy/596939657([facility] NOMED CT) Repository ENCOUNTERS ENCOUNTERS ADMIT/DISCHARGE ACCOUNT ADMITTING ENCOUNTER LOCATION SOURCE NUMBER CLASS 10/22/2018/10/23/20 [id number] Ambulatory [address] Repository 10/15/2018/10/16/20 [id number] Emergency [address] ing:ED Repository 10/09/2018/10/09/20 [id number] Ambulatory [address] Repository 10/09/2018/10/10/20 [id number] Ambulatory [address] Repository 08/28/2018/08/29/20 [id number] Ambulatory [address] Repository 06/10/2018 [id number] [facility] ing:IOP Repository 05/08/2018/05/30/20 [id number] Ambulatory [address] ing:BHIOP Repository 03/31/2018/04/29/20 [id number] Ambulatory [address] ing:BHIOP Repository 03/29/2018/03/30/20 [id number] Ambulatory [address] ing:BHIOP Repository PAYERS PAYERS ENCOUNTER GUARANTOR PAYER SUBSCRIBER SOURCE 10/15/2018 [facility]yan N [id number] [place]: [id number] [id number] Repository [address]Zau: [phone] maciel Date:[id number] [phone] () [address], [place] [address]CN: 10/15/2018 Secondary NOT GIVENUNK [place] Insurance:SELF PAY [facility] Number: Effective Repository Date:2018-10-15 06/10/2018 Dyan N Primary Dyan N [place] [id number] Insurance:ANTHEMPolic ChristieDOB: Community Ihrig y Number: [id number], [place] [id number] Repository [address]Tgs: [phone] maciel Date:[id number] [phone] () [address], [place] [address]FY: 06/10/2018 Secondary NOT GIVENUNK Cherise Insurance:SELF PAY [facility] Number: Effective Repository Date:2018-05-31 05/08/2018 Dyan N Primary Dyan N [place] [id number] Insurance:ANTHEMPolic ChristieDOB: Community [place]hr[place] y Number: [id number], [place] [id number] Repository [address]Pla: [phone] maciel Date:0052-31-85HZ [phone] () [address], [place] [address]SV: 05/08/2018 Secondary NOT GIVENUNK Cherise Insurance:SELF PAY [facility] Number: Effective Repository Date:2018-04-30 03/31/2018 Dyan N Primary Dyan N Cherise [id number] Insurance:ANTHEMPolic ChristieDOB: Community [place] y Number: [id number], [place] [id number] Repository [address]Fqz: [phone] maciel Date:[id number] [phone] () [address], [place] [address]SB: 03/31/2018 Secondary NOT GIVENUNK Cherise Insurance:SELF PAY [facility] Number: Effective Repository Date:2018-03-31 03/29/2018 Dyan N Primary Dyan N Cherise [id number] Insurance:ANTHEMPolic ChristieDOB: Community [place]hr[place] y Number: [id number], [place] [id number] Repository [address]Clk: [phone] maciel Date:[id number] [phone] () [address], [place] [address]LP: 03/29/2018 Secondary NOT GIVENUNK Cherise Insurance:SELF PAY [facility] Number: Effective Repository Date:2018-03-28
== END 2018-10-16 00:37 | disposition home or self-care (01) ==
PROVIDERS: Emergency Provider Emergency Medicine; Family Provider Student in an Organized Health Care Education/Training Program; PCP Student in an Organized Health Care Education/Training Program
DX: R07.89 Other chest pain (principal); R05 Cough; J34.89 Other specified disorders of nose and nasal sinuses
CPT/HCPCS: 71046; 80048; 84484; 85025; 85379; 93005; 96374; 99283; A4216

== ENCOUNTER 2020-01-07 17:47 | Emergency (ER) | payer BC, SELFPAY ==
[2020-01-07 17:48] VITALS: BP 96/67; PULSE 87; RESP 18; TEMP 36.6; O2SAT 100; BMI 25.0
--- NOTE | 2020-01-07 18:07 | EKG12_ITS ---
Test Reason : Blood Pressure : / mmHG Vent. Rate : 083 BPM Atrial Rate : 083 BPM P-R Int : 178 ms QRS Dur : 086 ms QT Int : 378 ms P-R-T Axes : 045 060 025 degrees QTc Int : 444 ms Normal sinus rhythm Normal ECG Confirmed by RAVI JONES, PRASAD ([id number]), medical editor CHI PINA ([id number]) on 01/08/2020 1:48:34 PM Referred By: CHASITY Confirmed By:PRASAD RODRIGUES MD
--- NOTE | 2020-01-07 18:08 | ED.VISSUMM ---
- ER Visit Summary Date of Service: 01/07/20 Chief Complaint: Syncopal event History of Present Illness: The patient is a 29 F currently E 2121 weeks . Due date 05/16/2020. G2, P1 Ab0. Patient states she was in a local store when she passed out. She fell backwards. She was unconscious. She denies any headache, or neck pain. She denies any chest pain or shortness of breath. No hemoptysis. No abdominal pain. No vaginal bleeding. She typically does not pass out. States she felt fine recently. She did eat today. She denies any dysuria. Physical Examination: Healthy-appearing young female vital signs are stable and afebrile. Initial blood pressure 96/67. Pulse ox 90% on room air no signs of hypoxia. H EENT exam unremarkable atraumatic. Pupils round react light. Motions are intact. Scalp is nontender with no signs of trauma. C-spine nontender normal range of motion. Trachea midline no lymphadenopathy. Lungs clear to auscultation bilaterally. Heart regular rhythm rate about 85 no murmur. Chest were nontender. Abdomen soft. Gravid uterus. Nontender. Normal bowel sounds no peritoneal signs. Pelvic girdle intact. Patient is moving all 4 extremities. Neurovascular intact. Calves are nontender without edema or cords. Neurologically awake alert. No focal motor deficits. NIH is 0. 5 5 micropaleontologist strength. Dorsi plantarflexion intact. Fingertip to nose within normal limits. Test Results: CBC white count 8. Hemoglobin 10.5 which is around her normal hemoglobin of 11. Chemistries unremarkable normal creatinine and gap. Orthostatic vital signs were negative. Lying she was 96/60 but standing she was 102/69 tolerated well. heart tones are 150. EKG normal sinus rhythm rate 83 with no acute signs of any abnormality. No dysrhythmia or ischemia. No S1, Q 3 T3. Emergency Department Course and Treatment: Young female with syncopal event. Exam normal. Will obtain a CBC and chemistry. Orthostatic vital signs. EKG and heart tones. Repeat exam patient is doing well at 1959. She will be discharged home. We went over all test results. Treatment Plan: Plenty of fluids and rest. Follow-up with your PLC CONTROLS ENGINEER. Disposition: Discharge Impression: Acute syncope uncertain etiology at 22 weeks. This note was generated with Dragon dictation software. It may contain incorrect words, spelling, and punctuation that were not noted in review of the chart prior to signing ED Disposition - Plan for ED Patient: Referrals: Marcelo Oconnell DO [Primary Care Provider] -
[2020-01-07] MEDS: 0.9% Normal Saline 1,000 ML 999 ML IV (18:40)
[2020-01-07 19:08] LABS: Hematocrit 32.8 % (37-47); Hemoglobin 10.5 g/dL (12.0-15.0); Mean Corpuscular Hgb 28.1 pg (27.0-32.0); Mean Corpuscular Volume 87.7 fL (81-99); Mean Platelet Vol. 9.3 fl (6.2-12.0); Platelet Count 268 K/mm3 (150-450); RBC Distribution Width CV 13.8 % (11.6-14.6); RBC Distribution Width SD 44.4 fl (35.1-43.9); Red Blood Count 3.74 M/mm3 (4.2-5.4); White Blood Count 8.9 K/mm3 (4.4-11.0)
[2020-01-07 19:22] LABS: Anion Gap 6 (5-15); BUN 5 mg/dL (7-18); BUN/Creat Ratio 13.9 RATIO (10-20); Calcium,Total 8.1 mg/dL (8.5-10.1); Chloride 106 mmol/L (98-107); Creatinine, Serum 0.36 mg/dL (0.55-1.02); EST Glomerular Filtration Rate 227 mL/min (>60); Est Glom Filt Rate - Afr Amer 275 mL/min (>60); Estimated Creatinine Clearance 209.35 ml/min; Glucose 76 mg/dL (74-106); Potassium 3.8 mmol/L (3.5-5.1); Sodium Level 137 mmol/L (136-145)
[2020-01-07 19:41] VITALS: BP 102/69; BP 104/67; BP 96/60; PULSE 81; PULSE 82; PULSE 86
--- NOTE | 2020-01-07 19:53 | ED.DEP ---
ED Disposition - Plan for ED Patient: Disposition: Home or Assisted Living Instructions: SYNCOPE, Unk Cause Referrals: Marcelo Oconnell DO [Primary Care Provider] - As soon as possible Susan Falcon MD [STAFF PHYSICIAN] - As soon as possible Additional Instructions: Plenty of fluids and rest. Follow-up with your DISTRICT SUPERVISOR this week. Your tests today were basically unremarkable. You are mildly anemic. Otherwise she had good heart tones. Your EKG and electrolytes and kidney function were normal. Your blood pressures running a little low follow-up with your DISTRICT SUPERVISOR to have that reevaluated.
[2020-01-07 20:17] VITALS: BP 96/62; PULSE 72
[2020-01-07 20:26] VITALS: BP 96/62; PULSE 88; RESP 22; O2SAT 98
== END 2020-01-07 20:27 | disposition home or self-care (01) ==
PROVIDERS: Emergency Provider Emergency Medicine; PCP Student in an Organized Health Care Education/Training Program
DX: O26.892 Other specified pregnancy related conditions, second trimester (principal); R55 Syncope and collapse; Z3A.22 22 weeks gestation of pregnancy
CPT/HCPCS: 80048; 85027; 93005; 96360; 99285; J7030; A4216

== ENCOUNTER 2020-05-15 06:25 | Inpatient (IN) | payer BC, SELFPAY ==
[2020-05-15] VITALS (42 sets, daily range): BP systolic 91–120; BP diastolic 50–75; PULSE 69–112; RESP 16; TEMP 36.1–36.7; O2SAT 96–98; BMI 27.9
[2020-05-15] MEDS: Lactated Ringers 500 ML 999 ML IV (07:39)
[2020-05-15 07:45] LABS: Absolute Lymphocyte Count 1.23 X10^3/uL (0.83-4.51); Absolute Neutrophil Count 9.1 X10^3/uL (2.0-7.7); Basophil# 0.02 X10^3/uL; Basophil% 0.2 % (0-1); Eosinophil# 0.04 X10^3/uL; Eosinophils% 0.4 % (0-5); Hematocrit 36.8 % (37-47); Lymphocyte # 1.23 X10^3/ul (4.0); Lymphocyte % 10.9 % (19-41); Mean Corp Hgb Conc 32.6 g/dL (32-36); Mean Corpuscular Hgb 27.9 pg (27.0-32.0); Mean Corpuscular Volume 85.6 fL (81-99); Mean Platelet Vol. 10.1 fl (6.2-12.0); Monocyte# 0.75 X10^3/uL; Monocyte% 6.7 % (0-10); NRBC Flagged by Analyzer 0 % (0-5); Neutrophil # 9.13 X10^3/uL (2.7-7.7); Neutrophil % 81.2 % (47-70); Platelet Count 256 K/mm3 (150-450); RBC Distribution Width CV 15.3 % (11.6-14.6); RBC Distribution Width SD 47.6 fl (35.1-43.9); White Blood Count 11.2 K/mm3 (4.4-11.0)
--- NOTE | 2020-05-15 08:08 | HP.PCM_ITS ---
- Problem List (1) 39 weeks gestation of Status: Acute (2) Multiparous Status: Acute (3) Uterine contractions Status: Acute (4) Anemia Status: Acute (5) History of depression Status: Acute History Date of Admission: 05/15/20 Final JESSY: 05/16/20 Gestational age: 39 Weeks and 6 Days History of this : This is a 30 year-old, G 2, P 1, at 39 weeks gestational age who presents with ctx's and 4cm dilated with BBW. Allergies No Known Allergies Allergy (Verified 05/15/20 06:33) Home Medications: Home Medications 105/Iron/Folic AC/Dha [Prena1 True Combo Pack] 1 ea PO DAILY 01/07/20 Iron 45 mg PO DAILY 05/15/20 Smoking Status: Never smoker Number of Fetus(es): 1 NST - FHR Rate Baby A Baseline: 130 Variability:: Moderate Accelerations:: 15 x 15 Decelerations:: None NST Reactive:: Yes FHR Category:: Category I Uterine Activity:: ctx q 3-4 min History Past Pregnancies: Past Pregnancies Delivery Date Name GA/ Weeks Outcome Route Wt Sex Labor Length Anesthesia Delivery Location Provider FOB Labs: See [facility] record Expected Delivery Method: Spontaneous Vaginal Review of Systems Gynecological: Reports: - - +Ctx. 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 - Routine intrapartum care - GBS neg - Epidural prn - Pelvis adequate and EFW < 4500 g, anticipate vaginal delivery
[2020-05-15] MEDS: fentaNYL-bupivacaine (epidural) 100 ML BAG EPIDURAL (08:14)
[2020-05-15] MEDS: Lactated Ringers 1,000 ML 200 ML IV (08:14)
--- NOTE | 2020-05-15 08:45 | PCM.PN.BLA ---
Progress Note Cvx 6/80/-1, head well applied. Pt comfortable with epidural. AROM for moderate clear fluid. Category 1 tracing. STROKE Vital Signs/Narrative: Vital Signs Temp Pulse BP Pulse Ox 05/15/20 08:43 97 96 05/15/20 08:42 93 93/57 L 05/15/20 08:38 102 H 98 05/15/20 08:36 102 H 112/73 05/15/20 08:33 108 H 97 05/15/20 08:31 93 109/68 05/15/20 08:28 99 97 05/15/20 08:25 100 111/73 05/15/20 08:23 103 H 96 05/15/20 08:20 97 109/72 05/15/20 08:18 89 97 05/15/20 08:14 86 113/74 05/15/20 08:13 90 96 05/15/20 08:08 88 97 05/15/20 08:03 91 98 05/15/20 07:58 90 120/75 96 05/15/20 07:23 97.0 F L 97 05/15/20 07:18 99 96 05/15/20 07:14 99 111/59 L 05/15/20 06:15 97 96
[2020-05-15] MEDS: Oxytocin 30 units/NS 500 ml 30 UNITS/500 ML IV.SOLN 334 UNITS IV (11:23)
--- NOTE | 2020-05-15 12:13 | PCM.OPRPT ---
Vaginal Delivery Maternal Presentation: Active Labor Amniotic Membrane Rupture Type: Artificial Amniotic Fluid Description: Clear Date of Procedure: 05/15/20 Pre-Operative Diagnosis: labor Post-Operative Diagnosis: labor Surgery/ Procedure Performed: Spontaneous Vaginal Delivery Type of Anesthesia: Epidural Description of Procedure: A vigorous female was delivered SOHAN over intact perineum. The remainder the was delivered with maternal pushing and gentle traction only in less than 15 seconds. The Pitocin infusion was initiated for active management of the third stage. The cord was clamped and cut after 1 minute. The infant was attended to by the waiting nursing staff. The placenta was delivered spontaneously and intact. The cervix and vagina were intact. Sponge and needle counts were correct. A vaginal sweep was completed by me. Presentation: SOHAN Placental Delivery Description: Spontaneous Placenta Disposition: [facility] Cord Vessel Description: 3 Vessels Cord Entanglement: None Estimated Blood Loss: 200 Infant A gender: Female - Kade Episiotomy Description: None Laceration: None Medications given after delivery: IV Pitocin Complications: None
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
[2020-05-16] VITALS (9 sets, daily range): BP systolic 107–111; BP diastolic 66–73; PULSE 83–96; RESP 16–18; TEMP 36.1–36.4; O2SAT 96
--- NOTE | 2020-05-16 07:41 | PCM.PN.OB ---
Patient Problems: Active and Suspected Problems 39 weeks gestation of (Acute) Multiparous (Acute) Uterine contractions (Acute) Anemia (Acute) History of depression (Acute) Subjective: pain well controlled, average lochia - Physical Exam Vitals/I&O's: Vital Signs Temp Pulse Resp BP Pulse Ox 97.6 F L 93 16 107/66 96 05/16/20 03:55 05/16/20 03:55 05/16/20 03:55 05/16/20 03:55 05/16/20 03:55 Oxygen Delivery Method Room Air Weight: 76.204 kg Body Mass Index (BMI) 27.9 Intake and Output for Last 24 Hours 05/14/20 05/15/20 05/16/20 23:59 23:59 23:59 Intake Total 1630 / 1630 Output Total 950 / 950 Balance 680 / 680 General: Alert, Cooperative, No apparent distress Laboratory Results 05/15/20 07:12: COVID-19 (ISAMAR) Not Detected 05/15/20 07:30: WBC 11.2 H, RBC 4.30, Hgb 12.0, Hct 36.8 L, MCV 85.6, MCH 27.9, MCHC 32.6, RDW Std Deviation 47.6 H, RDW Coeff of Shandra 15.3 H, Plt Count 256, MPV 10.1, Immature Gran % (Auto) 0.600, Neut % (Auto) 81.2 H, Lymph % (Auto) 10.9 L, [place] % (Auto) 6.7, Eos % (Auto) 0.4, Baso % (Auto) 0.2, Absolute Neuts (auto) 9.1 H, Absolute Lymphs (auto) 1.23, Nucleated RBC % 0 05/15/20 07:30: Blood Type A POSITIVE, Antibody Screen NEGATIVE Current Medications Acetaminophen (Tylenol) 1,000 mg PO Q8H PRN PRN PRN Reason: Pain Score 1-3/10 Bisacodyl (Dulcolax) 10 mg RECTAL UD PRN PRN Reason: If no BM Dibucaine (Dibucaine) 1 applic TOPICAL TID PRN PRN; Protocol PRN Reason: Discomfort Hydrocortisone (Hytone) 1 applic TOPICAL TID PRN PRN; Protocol PRN Reason: Discomfort Methylergonovine Maleate (Methergine) 0.2 mg IM X1 PRN PRN Reason: Excess bleeding/uterine atony Naproxen (Naprosyn) 500 mg PO Q8H PRN PRN PRN Reason: Pain Score 1-3/10 Ondansetron HCl (Zofran) 4 mg IV Q4H PRN PRN PRN Reason: Nausea Prochlorperazine Edisylate (Compazine Iv) 10 mg IV Q6H PRN PRN PRN Reason: NAUSEA/VOMITING Senna/Docusate Sodium (Senokot-S, Elba-Colace) 1 - 2 tablet PO DAILY PRN PRN PRN Reason: Constipation Simethicone (Mylicon) 80 mg PO PCHS PRN PRN Reason: Indigestion/Stomach pain Sodium Chloride () 5 - 15 ml IV UD PRN PRN Reason: SALINE FLUSH Medical Necessity - Tobacco Use Smoking Status: Never smoker Assessment/Plan All Active Problems 39 weeks gestation of (Acute) Multiparous (Acute) Uterine contractions (Acute) Anemia (Acute) History of depression (Acute) PPD#1 s/p infant and doing well likely d/c tomorrow
[2020-05-17 01:20] VITALS: BP 110/74; PULSE 72
[2020-05-17 01:23] VITALS: BP 110/74; PULSE 72; RESP 14; TEMP 36.6
[2020-05-17 07:40] VITALS: BP 111/75; PULSE 82; RESP 16; TEMP 36.1
[2020-05-17 07:56] VITALS: BP 111/75; PULSE 82
--- NOTE | 2020-05-17 09:27 | PCM.PN.OB ---
Patient Problems: Active and Suspected Problems 39 weeks gestation of (Acute) Multiparous (Acute) Uterine contractions (Acute) Anemia (Acute) History of depression (Acute) Subjective: Patient seen at bedside. Feeling well. Breast and bottle feeding. Denies any pain. Requesting discharge home today. - Physical Exam Vitals/I&O's: Vital Signs Temp Pulse Resp BP Pulse Ox 97 F L 82 16 111/75 96 05/17/20 07:40 05/17/20 07:56 05/17/20 07:40 05/17/20 07:56 05/16/20 03:55 Oxygen Delivery Method Room Air Weight: 168 lb Body Mass Index (BMI) 27.9 Intake and Output for Last 24 Hours 05/15/20 05/16/20 05/17/20 23:59 23:59 23:59 Intake Total 1630 / 1630 Output Total 950 / 950 Balance 680 / 680 General: Alert, Oriented x3 Lungs: Normal air movement Cardiovascular: Regular rate Abdomen: Soft, Non Tender Skin: No rashes Musculoskeletal: No Tenderness to Palpation of Joints or Extremities Neurological: Cranial nerves II-XII grossly intact Psych/Mental Status: Normal Affect, Appropriate Current Medications Acetaminophen (Tylenol) 1,000 mg PO Q8H PRN PRN PRN Reason: Pain Score 1-3/10 Bisacodyl (Dulcolax) 10 mg RECTAL UD PRN PRN Reason: If no BM Dibucaine (Dibucaine) 1 applic TOPICAL TID PRN PRN; Protocol PRN Reason: Discomfort Hydrocortisone (Hytone) 1 applic TOPICAL TID PRN PRN; Protocol PRN Reason: Discomfort Methylergonovine Maleate (Methergine) 0.2 mg IM X1 PRN PRN Reason: Excess bleeding/uterine atony Naproxen (Naprosyn) 500 mg PO Q8H PRN PRN PRN Reason: Pain Score 1-3/10 Ondansetron HCl (Zofran) 4 mg IV Q4H PRN PRN PRN Reason: Nausea Prochlorperazine Edisylate (Compazine Iv) 10 mg IV Q6H PRN PRN PRN Reason: NAUSEA/VOMITING Senna/Docusate Sodium (Senokot-S, Elba-Colace) 1 - 2 tablet PO DAILY PRN PRN PRN Reason: Constipation Simethicone (Mylicon) 80 mg PO PCHS PRN PRN Reason: Indigestion/Stomach pain Sodium Chloride () 5 - 15 ml IV UD PRN PRN Reason: SALINE FLUSH Medical Necessity - Tobacco Use Smoking Status: Never smoker Assessment/Plan All Active Problems 39 weeks gestation of (Acute) Multiparous (Acute) Uterine contractions (Acute) Anemia (Acute) History of depression (Acute) PPD #2 Pain controlled Desires discharge home today
--- NOTE | 2020-05-17 09:34 | DCINST_ITS ---
Discharge Diet: No Restrictions Discharge Activity: Return to Normal Activity May resume sexual activity in: 6-8 weeks Additional Instructions: If you experience any of the following, contact your healthcare provider. * Bleeding that soaks a pad every hour for 2 hours * Fever 100.4 or higher * Unrelieved incision or abdominal pain * Swelling, redness, discharge or bleeding from your incision or episiotomy site * Your incision begins to separate * Problems urinating (including inability to urinate or burning while urinating). * Visual changes * Severe headache * Flu-like symptoms * Pain or redness in one of both of your breasts * Pain, warmth, tenderness or swelling in your legs, especially the calf area * Frequent nausea and vomiting * Symptoms of depression or anxiety If you experience any of the following, call 911 or go to the nearest Emergency Room. * Chest pain * Problems breathing * Seizure activity * Partial or complete paralysis of a body part, slurred speech, weakness or drooping of the face, or a sudden inability to walk or hold your balance Allergies/Adverse Reactions: Allergies No Known Allergies Allergy (Verified 05/15/20 06:33) Medications to take at Discharge 105/Iron/Folic AC/Dha [Prena1 True Combo Pack] 1 ea PO DAILY 01/07/20 Iron 45 mg PO DAILY 05/15/20 Please Follow Up With: Susan Falcon MD When: 2 weeks virtual visit- 6 weeks in office Primary Care Physician: Marcelo Oconnell DO [Primary Care Provider] - Test Results: Test results from this visit will be discussed in further detail at your follow- up appointment, if applicable. Proposed Discharge Date: 05/17/20
--- NOTE | 2020-05-17 09:34 | PCM.DCVAG ---
Discharge Diet: No Restrictions Discharge Activity: Return to Normal Activity May resume sexual activity in: 6-8 weeks Additional Instructions: If you experience any of the following, contact your healthcare provider. Bleeding that soaks a pad every hour for 2 hours Fever 100.4 or higher Unrelieved incision or abdominal pain Swelling, redness, discharge or bleeding from your incision or episiotomy site Your incision begins to separate Problems urinating (including inability to urinate or burning while urinating). Visual changes Severe headache Flu-like symptoms Pain or redness in one of both of your breasts Pain, warmth, tenderness or swelling in your legs, especially the calf area Frequent nausea and vomiting Symptoms of depression or anxiety If you experience any of the following, call 911 or go to the nearest Emergency Room. Chest pain Problems breathing Seizure activity Partial or complete paralysis of a body part, slurred speech, weakness or drooping of the face, or a sudden inability to walk or hold your balance Allergies/Adverse Reactions: Allergies No Known Allergies Allergy (Verified 05/15/20 06:33) Medications to take at Discharge 105/Iron/Folic AC/Dha [Prena1 True Combo Pack] 1 ea PO DAILY 01/07/20 Iron 45 mg PO DAILY 05/15/20 Please Follow Up With: Susan Falcon MD When: 2 weeks virtual visit- 6 weeks in office Primary Care Physician: Marcelo Oconnell DO [Primary Care Provider] - Test Results: Test results from this visit will be discussed in further detail at your follow-up appointment, if applicable. Proposed Discharge Date: 05/17/20
--- NOTE | 2020-05-17 11:39 | NURSING ---
6300 dc to home
== END 2020-05-17 11:35 | disposition home or self-care (01) | DRG 807 ==
LOC: WPOUT 06:30 → WP 06:30
PROVIDERS: Admitting Provider Obstetrics & Gynecology; PCP Student in an Organized Health Care Education/Training Program; Referring Provider Advanced Practice Midwife; Visit Provider Obstetrics & Gynecology
DX: O99.02 Anemia complicating childbirth (principal); D64.9 Anemia, unspecified; Z37.0 Single live birth; Z3A.39 39 weeks gestation of pregnancy
CPT/HCPCS: 59025; 59050; 85025; 86850; 86900; 86901; 87635; 99218; G2023; J7120; G0378; U0003

== ENCOUNTER 2023-03-15 03:26 | Emergency (ER) | payer OTHER, BC, SELFPAY ==
[2023-03-15 03:27] VITALS: BP 122/60; PULSE 78; RESP 16; TEMP 36.3; O2SAT 98; BMI 24.3
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
--- NOTE | 2023-03-15 03:50 | RAD_ITS ---
EXAM: XR LEFT FOREARM, 2 VIEWS CLINICAL INDICATION: pain TECHNIQUE: Frontal and lateral views of the left forearm. COMPARISON: No relevant prior studies available. FINDINGS: BONES/JOINTS: Unremarkable. No acute fracture. No dislocation. SOFT TISSUES: Unremarkable. RAD/Forearm 2 Views IMPRESSION: Negative left forearm x-rays. Electronically Signed: Seng Sims MD at 4:10 EDT ,
== END 2023-03-15 04:28 | disposition home or self-care (01) ==
LOC: ED 03:58
PROVIDERS: Emergency Provider Emergency Medicine; PCP Student in an Organized Health Care Education/Training Program; Visit Provider Emergency Medicine
DX: S50.812A Abrasion of left forearm, initial encounter (principal); S50.12XA Contusion of left forearm, initial encounter; W31.89XA Contact with other specified machinery, initial encounter; Y99.0 Civilian activity done for income or pay; Y92.69 Other specified industrial and construction area as the place of occurrence of the external cause
CPT/HCPCS: 73090; 99282

== ENCOUNTER 2024-10-30 15:39 | Emergency (ER) | payer BC, MEDICAID, SELFPAY ==
[2024-10-30 15:40] VITALS: BP 108/82; PULSE 107; RESP 16; TEMP 36.9; O2SAT 96; BMI 25.5
--- NOTE | 2024-10-30 15:50 | RAD_ITS ---
INDICATION: swelling EXAMINATION/TECHNIQUE: X-RAY - LEFT XR Knee Complete 4 Views COMPARISON: FINDINGS: SOFT TISSUES: Mild prepatellar subcutaneous edema. No radiopaque foreign body. BONES/JOINTS: No acute fracture or subluxation.. Normal alignment. Preservation of the joint space.. No sclerotic or destructive changes observed. RAD/Knee 4 or More Views IMPRESSION: Prepatellar subcutaneous edema. Electronically Signed: Eliazar Pagan DO at 16:14 EST ,
--- NOTE | 2024-10-30 18:30 | ED.VIS.LOWEX ---
HPI History of Present Illness Chief Complaint: Lower Extremity Injury Informant: patient Narrative Narrative: Patient is a 34-year-old female presenting with 1 day of left knee pain and swelling. Patient states she woke up at 5 AM because her left knee was throbbing. It was very painful to even put weight on. She iced and took ibuprofen around 9 AM. He then started to feel little bit better. She continued to have intermittent sharp pain so she went to urgent care. They were concerned and instructed her to come to the emergency room for concern of associated infection. Patient notes that is a day is gone on she has had worsening redness, warmth and swelling of her anterior knee. She denies any trauma. She denies any repetitive activities and does not do anything with cause her to be on her knees for work. Notes that over the past week and a half there is been respiratory illnesses going around and she is also been sick. Her daughter had RSV and she had associated drainage, vomiting, cough and sore throat. Those symptoms seem to be improving but she cannot tell if some of her fatigue is associated with this illness. No other complaints or concerns at this time. Denies any concern for at this time. [facility] Medical History Asthma Keyur's thyroiditis Home Medications ?Medication ?Instructions ?Recorded ?Last Taken ?Type albuterol sulfate 90 mcg/actuation 2 puff inhalation Q4H PRN PRN 10/30/24 Unknown History aerosol inhaler wheezing doxycycline hyclate 100 mg capsule 100 mg PO BID 10 days #20 caps 10/30/24 Unknown Rx ibuprofen 600 mg tablet 600 mg PO Q6H PRN PRN pain #20 10/30/24 Unknown Rx TABLETS levothyroxine 75 mcg tablet 75 mcg PO DAILY disorder of 10/30/24 10/30/24 History thyroid gland Allergy/AdvReac Type Severity Reaction Status Date / Time No Known Allergies Allergy Verified 10/30/24 17:36 Social History Smoking Status: Never smoker ROS ROS ED Constitutional Constitutional ED: Denies chills or fever(s) Respiratory/Chest Respiratory/Chest: Denies cough or dyspnea Gastrointestinal Gastrointestinal: Denies nausea or vomiting Musculoskeletal Musculoskeletal: Reports other Details: Left knee pain Integumentary Reports rash Neurologic Neurologic: Denies paresthesias or weakness Hematologic/Lymphatic Hematologic/Lymphatic: Denies easy bleeding or easy bruising EXAM Physical Exam Const Vital Signs: 10/30/24 15:40 10/30/24 19:39 Temperature 98.5 F Temperature Source Oral Pulse Rate 107 H 70 Respiratory Rate 16 16 Blood Pressure 108/82 H Blood Pressure Mean 90 Pulse Ox 96 Oxygen Delivery Method Room Air Room Air Positive well nourished and well developed General Appearance ED: well developed and NAD HEENT Reports moist mucous membranes HEENT Narrative: No nasal congestion present. Mild injection/erythema of the posterior oropharynx. Uvular irritation present. Normal phonation. Eyes PERRL Neck full ROM and supple Chest Wall inspection of chest normal Resp normal respiratory effort, no retractions and clear to auscultation bilaterally GI non-tender and non-distended Extremity full ROM Extremity Narrative: Normal right lower extremity. Left lower extremity has prepatellar swelling, localized erythema and warmth. No joint effusion present. No pain with range of motion of the knee however there is tenderness with palpation of the prepatellar area. Normal extensor mechanism of the knee. No associated lymphangitic streaking. Neuro oriented x3 Sensorium / Orientation: alert Motor Exam: Negative for general weakness Psych mental status grossly normal Skin Skin Narrative: Approximately 3 cm x 4 cm area of erythema/induration of the left anterior knee. MDM MDM MDM Narrative Medical decision making narrative: Patient is evaluated for 1 day of left knee pain, redness and swelling. Physical exam is consistent with prepatellar bursitis and concern for associated infection given the degree of erythema and induration. She overall is quite well-appearing. No systemic signs or symptoms. Otherwise benign exam. No joint effusion or range of motion pain concerning for septic joint. Will obtain I&D of the bursa for septic vs inflammatory bursitis. Approximately 2 to 3 cc of serous appearing fluid that is noncloudy was initially obtained. Needle redirected and then significant blood-tinged fluid was obtained. There is too much blood to run for cell counts. I discussed the case with Dr. Willis who is amenable with discharge the patient on doxycycline, outpatient follow-up and he can always repeat aspiration in the office as needed. Cultures pending. No crystals seen making is less consistent with gout (had a lower suspicion for this in the first place). Patient given first dose of doxycycline in the emergency room. Given a dose of Motrin. Clinically is stable with no progression in the ER. Given close return precautions. Is given work note. Lab Data Attestation: I reviewed the patient's lab results. Labs: Laboratory Results - last 24 hr 10/30/24 19:40 Fluid Crystals NO CRYSTALS SEEN Fluid Crystal Source SYNOVIAL Fl Crystal Path Review Will follow Synovial Source Cancelled Synovial Color Cancelled Synovial Appearance Cancelled Synovial Volume Cancelled Synovial Viscosity Cancelled Synovial WBC Cancelled Synovial RBC Cancelled Synovial Tot Cell Ct Cancelled Synov Polynuclear WBCs Cancelled Synov Mononuclear WBCs Cancelled Synovial Neutrophils Cancelled Synovial Lymphocytes Cancelled Synovial Monocytes Cancelled Synovial Plasma Cells Cancelled Synovial Other Cells Cancelled Synovial Polynuclear % Cancelled Synovial Mononuclear % Cancelled Synovial Path Comment Cancelled Radiography Diagnostic Testing: Clinical Impression(s) from Imaging Studies Knee X-Ray 10/30/24 15:50 IMPRESSION: Prepatellar subcutaneous edema. Electronically Signed: Eliazar Pagan DO at 16:14 EST Reading Location ID and State: [facility] / [place] Tel [phone], Service support , Management Discussion w/another healthcare provider: Credit Correspondence Clerk Procedures Other Procedures Procedure(s): Left knee bursa aspiration Area prepped with alcohol and antiseptic wipe. Draped. Using sterile technique skin infiltrated with 1% lidocaine. The needle directed deeper. 18-gauge needle then used to daily aspirate fluid. Initially approximately 3 cc of straw-colored nonpurulent fluid obtained. Needle redirected and further fluid aspirated however it is now significantly blood-tinged. Patient tolerated procedure reasonably well. Band-Aid applied. Discharge Plan Triage Chief Complaint: Lower Extremity Injury ED Provider: Kyra Alcaraz Dx/Rx/DC Orders Clinical Impression: Bursitis, prepatellar, left Instructions: ED Bursitis Prescriptions: New doxycycline hyclate 100 mg capsule 100 mg PO BID 10 Days Qty: 20 0RF ibuprofen 600 mg tablet 600 mg PO Q6H PRN PRN (Reason: pain) Qty: 20 0RF No Action levothyroxine 75 mcg tablet 75 mcg PO DAILY albuterol sulfate 90 mcg/actuation HFA aerosol inhaler 2 puff inhalation Q4H PRN PRN (Reason: wheezing) Stand Alone Forms: ED Work / School Excuse Primary Care Provider: Marcelo Oconnell Referrals: Marcelo Oconnell DO [Primary Care Provider] - Denilson Willis DO [Med Staff - Active Staff] - 3-5 Days Activity Restrictions/Additional Instructions: Call orthopedic office on the second. If you develop fever, have worsening redness or progression of symptoms please return. In the meantime ice, wear compression dressing with Emery wrap and take ibuprofen to help with pain. Take antibiotics as prescribed. Print Language: Dominican Disposition Disposition: Home, Self Care Discharge Date/Time: 10/30/24 21:31
[2024-10-30] MEDS: Ibuprofen 600 MG Tablet PO (18:36)
[2024-10-30] MEDS: Lidocaine 1% (20 ml mdv) 20 ML Vial INFILT (18:44)
[2024-10-30 19:39] VITALS: PULSE 70; RESP 16
[2024-10-30] MEDS: Doxycycline 100 MG in 0.9% Normal Saline (250mL Bag) 250 ML 250 MG IV (20:13)
[2024-10-30 20:57] LABS: CRYSTALS, BODY FLUID NO CRYSTALS SEEN; Source- Body Fluid SYNOVIAL
[2024-10-30 20:59] LABS: Body Fluid QC Type(s) BF1Q
[2024-11-02 13:17] LABS: Pathologist Review Reviewed
== END 2024-10-30 21:31 | disposition home or self-care (01) ==
PROVIDERS: Emergency Provider Emergency Medicine; PCP Student in an Organized Health Care Education/Training Program; Visit Provider Emergency Medicine
DX: M70.42 Prepatellar bursitis, left knee (principal); J45.909 Unspecified asthma, uncomplicated; Z79.899 Other long term (current) drug therapy; Z79.51 Long term (current) use of inhaled steroids
CPT/HCPCS: 96365; 73564; 87070; 87075; 87077; 87186; 87205; 89050; 89051; 89060; 99282; A4216

== ENCOUNTER 2024-11-06 10:07 | Emergency (ER) | payer BC, MEDICAID, SELFPAY ==
[2024-11-06 10:07] VITALS: BP 110/83; PULSE 89; RESP 16; TEMP 36.4; O2SAT 98; BMI 26.4
--- NOTE | 2024-11-06 10:27 | VDLE_ITS ---
Reason For Study: Left leg swelling Procedure LEFT This is a venous duplex using B-mode, color GSV is normal. flow and spectral Doppler. CFV is compressible, spontaneous, phasic, Exam performed portable in ED. competent, and demonstrates normal A preliminary report was called and/or faxed augmentation. to Dr. Liao. FV is compressible, spontaneous, phasic, competent and demonstrates normal augmentation. POP V is compressible, spontaneous, phasic, competent and demonstrates normal augmentation. T/P Trunk is compressible. PTV is compressible. LT PerV is compressible. VL/Venous Duplex US, Unilateral Interpretation Summary Deep veins of the left lower extremity are patent and compressible segmentally. There is no evidence of left lower extremity deep vein thrombosis. The left great saphenous vein candida ears patent and compressible segmentally. Ordering Physician: Jw Liao Referring Physician: Marcelo Oconnell Performed By: Yvette Viera RVT
--- NOTE | 2024-11-06 10:34 | EX.ED.DYSGE1 ---
HPI History of Present Illness Chief Complaint: Lower Extremity Injury Narrative Narrative: hief complaint and HPI: Left calf swelling. 34-year-old female presents for evaluation of left calf swelling. Patient was originally seen in our emergency department on 10/30/2024 for left knee swelling, pain, redness. History taken by patient as well as medical record. At that time she was diagnosed with left knee bursitis. She was placed on doxycycline. Plan was to follow-up outpatient with Dr. Willis. Patient states since being on the antibiotic her left knee swelling, redness, pain has improved. She states over the last several days she has had increased left calf swelling. She denies any pain. Denies a history of DVT/PE, blood clotting disorder, recent trauma or surgery, exogenous estrogen use. Denies any fever, chills, nausea, vomiting, shortness of breath, chest pain. Review of systems: See HPI Medications: As listed on the chart Allergies: As listed on the chart PFSH: Per chart Vital signs: As listed on the chart. Reviewed. Physical exam: Gen: A&O x3, NAD Head: Normocephalic, atraumatic Eyes: No sclera icterus, conjunctiva clear ENT: Moist mucous membranes Neck: Trachea midline, No JVD CV: RRR, no murmurs, no peripheral edema Resp: Lungs CTA BL, no w/r/c Musc: Full ROM, no deformity, left knee without swelling, erythema, warmth, tenderness, patient has mild swelling of the left calf compared to the right, no erythema or redness, negative Homans sign, DP/PT pulses plus 2 out of 4 Skin: Warm, dry Neuro: Alert, oriented, grossly intact, sensation intact Psych: Cooperative, appropriate mood and affect [facility] Medical History MRSA (methicillin resistant staph aureus) culture positive Asthma Keyur's thyroiditis Home Medications ?Medication ?Instructions ?Recorded ?Last Taken ?Type albuterol sulfate 90 mcg/actuation 2 puff inhalation Q4H PRN PRN 10/30/24 Unknown History aerosol inhaler wheezing doxycycline hyclate 100 mg capsule 100 mg PO BID 10 days #20 caps 10/30/24 Unknown Rx ibuprofen 600 mg tablet 600 mg PO Q6H PRN PRN pain #20 10/30/24 Unknown Rx TABLETS levothyroxine 75 mcg tablet 75 mcg PO DAILY disorder of 10/30/24 10/30/24 History thyroid gland Allergy/AdvReac Type Severity Reaction Status Date / Time No Known Allergies Allergy Verified 11/06/24 10:10 Social History Smoking Status: Never smoker EXAM Physical Exam Const Vital Signs: 11/06/24 10:07 Temperature 97.5 F L Temperature Source Temporal Pulse Rate 89 Respiratory Rate 16 Blood Pressure 110/83 H Blood Pressure Mean 92 Pulse Ox 98 MDM MDM MDM Narrative Medical decision making narrative: 34-year-old female presents for evaluation of left calf swelling. Differential diagnosis includes but is not limited to DVT and dependent swelling from recent left knee bursitis. Patient's left knee bursitis has improved. No signs of septic arthritis. Patient denies any injury or trauma to the left lower extremity. I do not think any imaging is needed at this time other than Venous duplex ultrasound to assess for DVT. Venous duplex ultrasound negative for DVT. At this point in time no clear etiology for patient's left calf swelling. I suspect possible dependent swelling from recent left knee bursitis. Patient was educated on elevation of the lower extremity to decrease swelling. Follow-up with PCP. Return back to the ED if symptoms change or worsen. She confirmed understanding of plan. Patient stable to discharge home. Impression: 1. Left calf swelling 2. Recent history of left knee bursitis, resolved/treated Discharge Plan Triage Chief Complaint: Lower Extremity Injury ED Provider: Jw Liao Dx/Rx/DC Orders Prescriptions: No Action levothyroxine 75 mcg tablet 75 mcg PO DAILY albuterol sulfate 90 mcg/actuation HFA aerosol inhaler 2 puff inhalation Q4H PRN PRN (Reason: wheezing) doxycycline hyclate 100 mg capsule 100 mg PO BID 10 Days Qty: 20 0RF ibuprofen 600 mg tablet 600 mg PO Q6H PRN PRN (Reason: pain) Qty: 20 0RF Primary Care Provider: Marcelo Oconnell Referrals: Marcelo Oconnell DO [Primary Care Provider] - Print Language: Lithuanian
[2024-11-06 11:26] VITALS: BP 110/83; PULSE 89; RESP 16; TEMP 36.4; O2SAT 98
== END 2024-11-06 11:28 | disposition home or self-care (01) ==
PROVIDERS: Emergency Provider Surgery; PCP Student in an Organized Health Care Education/Training Program; Visit Provider Surgery
DX: M79.89 Other specified soft tissue disorders (principal); M70.52 Other bursitis of knee, left knee; M25.562 Pain in left knee; J45.909 Unspecified asthma, uncomplicated
CPT/HCPCS: 93971; 99282